=== PATIENT | female | born 1930 | race Caucasian/White ===

== ENCOUNTER → 2017-02-21 | Outpatient (CLI) | payer MEDICARE, OTHER ==
--- NOTE | 2017-02-21 11:03 | RADIOLOGY REPORT (SQ) ---
EXAM DESCRIPTION: VENOUS UNILATERAL LOWER COMPLETED DATE/TIME: 02/21/2017 10:46 am REASON FOR STUDY: RLE PAIN SWELLING R60.9 EDEMA, UNSPECIFIED COMPARISON: None. TECHNIQUE: Dynamic and static iniguez scale and color images acquired of the right leg venous system. S elected spectral images acquired with additional compression and augmentation maneuvers. The contrala teral common femoral vein and saphenofemoral junction were also imaged. Images stored on PACS. LIMITATIONS: None. FINDINGS: COMMON FEMORAL: Normal phasicity, compression and augmentation. No visualized echogenic ma terial on iniguez scale. No defects on color images. FEMORAL: Normal compression and augmentation. No visualized echogenic material on iniguez scale. No defe cts on color images. POPLITEAL: Normal compression, augmentation. No visualized echogenic material on iniguez scale. No defec ts on color images. CALF VESSELS: Normal compression, augmentation. No visualized echogenic material on iniguez scale. No de fects on color images. GSV and SSV: Normal compression, augmentation. No visualized echogenic material on iniguez scale. No def ects on color images. ANY DEEP VENOUS INSUFFICIENCY: Not evaluated. ANY EVIDENCE OF POPLITEAL CYST: No. OTHER: No other significant finding. CONTRALATERAL COMMON FEMORAL VEIN AND SAPHENOFEMORAL JUNCTION: Normal phasicity, compression and augmentation. No visualized echogenic material on iniguez scale. No de fects on color images. IMPRESSION: NO EVIDENCE OF DVT OR SVT IN THE RIGHT LEG. TECHNICAL DOCUMENTATION: JOB ID: [id number] [employer]- All Rights Reserved
== END ==
LOC: SP 09:45
PROVIDERS: ATTEND Internal Medicine Medical Oncology
DX: M79.604 Pain in right leg (principal); R60.9 Edema, unspecified
CPT/HCPCS: 93971

== ENCOUNTER 2018-04-25 14:42 | Inpatient (IN) | payer MEDICARE, OTHER ==
--- NOTE | 2018-04-25 15:55 | ER Document Report ---
ED Medical Screen (RME) - General Chief Complaint: Breathing Difficulty Stated Complaint: DIFFICULTY BREATHING Time Seen by Provider: 04/25/18 15:51 Mode of Arrival: Ambulatory Information source: Patient, Relative, [facility] Records Notes: 88-year-old female with hypertension presents with complaint of shortness of breath that started 3 days prior to arrival. Patient states that her shortness of breath is worse with activity, laying flat. She denies any associated chest pain, nausea, vomiting. Patient does have long-standing lower extremity edema. I have greeted and performed a rapid initial assessment of this patient. A comprehensive ED assessment and evaluation of the patient, analysis of test results and completion of medical decision making process we will be contacted by additional ED providers. General; no acute distress Cardiac; irregular rhythm, tachycardic Respiratory; no wheezing. No respiratory distress. No accessory muscle use TRAVEL OUTSIDE OF THE [place] IN LAST 30 DAYS: No - HPI Onset: Other Onset/Duration: Persistent Quality of pain: No pain Associated Symptoms: Shortness of breath Exacerbated by: Supine, Movement, Walking Relieved by: Remaining still Similar symptoms previously: No Recently seen / treated by doctor: No - Related Data Smoking: Non-smoker Frequency of alcohol use: None Drug Abuse: None Allergies/Adverse Reactions: No Known Allergies Allergy (Verified 04/25/18 14:49) Past Medical History - Past Medical History Cardiac Medical History: Reports: Hx Hypertension Pulmonary Medical History: Denies: Hx Tuberculosis Neurological Medical History: Denies: Hx Seizures Renal/ Medical History: Denies: Hx Peritoneal Dialysis Past Surgical History: Reports: Hx Appendectomy, Hx Hysterectomy. Denies: Hx Pacemaker - Immunizations Hx Diphtheria, Pertussis, Tetanus Vaccination: Yes Physical Exam - Vital signs Vitals: Temp Pulse Resp BP Pulse Ox 98.8 F 125 H 18 104/58 L 93 04/25/18 14:52 04/25/18 14:52 04/25/18 14:52 04/25/18 14:52 04/25/18 14:52 Course - Vital Signs Vital signs: Temp Pulse Resp BP Pulse Ox 98.8 F 125 H 18 104/58 L 93 04/25/18 14:52 04/25/18 14:52 04/25/18 14:52 04/25/18 14:52 04/25/18 14:52 Doctor's Discharge - Discharge Referrals: JAVIER BYERS MD [Primary Care Provider] - Follow up as needed
--- NOTE | 2018-04-25 16:52 | RADIOLOGY REPORT (SQ) ---
EXAM DESCRIPTION: CHEST 2 VIEWS COMPLETED DATE/TIME: 04/25/2018 4:43 pm REASON FOR STUDY: sob COMPARISON: 09/07/2010 EXAM PARAMETERS: NUMBER OF VIEWS: two views TECHNIQUE: Digital Frontal and Lateral radiographic views of the chest acquired. RADIATION DOSE: NA LIMITATIONS: none FINDINGS: LUNGS AND PLEURA: The lung sommer are hyperexpanded with small bilateral pleural effusions . No consolidation. MEDIASTINUM AND HILAR STRUCTURES: No masses or contour abnormalities. HEART AND VASCULAR STRUCTURES: Heart normal size. No evidence for failure. BONES: No acute findings. HARDWARE: None in the chest. OTHER: No other significant finding. IMPRESSION: Small pleural effusions and bibasilar atelectasis. COPD. TECHNICAL DOCUMENTATION: JOB ID: [id number] [employer]- All Rights Reserved Reading location - IP/workstation name: [email or web address]
[2018-04-25] MEDS ORDERED: IPRATROPIUM/ALBUTEROL 0.5-2.5 MG/3 ML AMPUL NEB ONE (17:01)
--- NOTE | 2018-04-25 17:02 | ER Document Report ---
ED General - General Mode of Arrival: Ambulatory Information source: Patient TRAVEL OUTSIDE OF THE [place] IN LAST 30 DAYS: No - HPI Onset: Other - 3 days Onset/Duration: Gradual Quality of pain: No pain Severity: Moderate Pain Level: Denies Associated symptoms: None Exacerbated by: Other - Bending over Recently seen / treated by doctor: No <KAILYN COATES - Last Filed: 04/25/18 18:36> <RICHA DANG - Last Filed: 04/25/18 20:47> - General Chief Complaint: Breathing Difficulty Stated Complaint: DIFFICULTY BREATHING Time Seen by Provider: 04/25/18 15:51 Notes: 88-year-old female presents emergency department with complaints of shortness of breath over the last 3 days. Patient is a former smoker. She denies a history of COPD. She is not on any home oxygen. Patient does not use any nebulizers or inhalers. Patient states that the shortness of breath is worse when she bends over. No alleviating factors. Patient denies any chest pain associated with this. Patient denies a history of congestive heart failure. She has chronic lower extremity edema. Patient denies any calf pain, recent travel, recent surgery, history of DVT or PE. (KAILYN COATES) - Related Data Allergies/Adverse Reactions: No Known Allergies Allergy (Verified 04/25/18 14:49) Past Medical History - General Information source: Patient, Relative, [facility] Records - Social History Smoking Status: Former Smoker Frequency of alcohol use: None Drug Abuse: None Family History: Reviewed & Not Pertinent Patient has suicidal ideation: No Patient has homicidal ideation: No - Past Medical History Cardiac Medical History: Reports: Hx Hypertension Pulmonary Medical History: Denies: Hx Tuberculosis Neurological Medical History: Denies: Hx Seizures Renal/ Medical History: Denies: Hx Peritoneal Dialysis Past Surgical History: Reports: Hx Appendectomy, Hx Hysterectomy. Denies: Hx Pacemaker - Immunizations Hx Diphtheria, Pertussis, Tetanus Vaccination: Yes Hx Pneumococcal Vaccination: 07/31/08 <KAILYN COATES - Last Filed: 04/25/18 18:36> Review of Systems - Review of Systems Constitutional: No symptoms reported EENT: No symptoms reported Cardiovascular: No symptoms reported Respiratory: Short of breath Gastrointestinal: No symptoms reported Genitourinary: No symptoms reported Female Genitourinary: No symptoms reported Musculoskeletal: No symptoms reported Skin: No symptoms reported Hematologic/Lymphatic: No symptoms reported Neurological/Psychological: No symptoms reported -: Yes All other systems reviewed and negative <KAILYN COATES A - Last Filed: 04/25/18 18:36> Physical Exam <KAILYN COATES A - Last Filed: 04/25/18 18:36> <RICHA DANG F - Last Filed: 04/25/18 20:47> - Vital signs Vitals: Temp Pulse Resp BP Pulse Ox 98.8 F 125 H 18 104/58 L 93 04/25/18 14:52 04/25/18 14:52 04/25/18 14:52 04/25/18 14:52 04/25/18 14:52 - Notes Notes: PHYSICAL EXAMINATION: GENERAL: Well-appearing, well-nourished and in no acute distress. HEAD: Atraumatic, normocephalic. EYES: Pupils equal round and reactive to light, extraocular movements intact, conjunctiva are normal. ENT: Nares patent, oropharynx clear without exudates. Moist mucous membranes. NECK: Normal range of motion, supple without lymphadenopathy LUNGS: Mild bilateral wheezing. HEART: Regular rate and rhythm without murmurs ABDOMEN: Soft, nontender, nondistended abdomen. No guarding, no rebound. No masses appreciated. Female : deferred Musculoskeletal: Normal range of motion, slight pitting edema to the bilateral lower extremities. No calf tenderness to palpation.. No cyanosis. NEUROLOGICAL: Cranial nerves grossly intact. Normal speech, normal gait. Normal sensory, motor exams PSYCH: Normal mood, normal affect. SKIN: Warm, Dry, normal turgor, no rashes or lesions noted. (KAILYN COATES ) Course - Laboratory Result Diagrams: 04/25/18 16:55 04/25/18 16:55 <KAILYN COATES - Last Filed: 04/25/18 18:36> - Laboratory Result Diagrams: 04/25/18 16:55 04/25/18 16:55 <RICHA DANG F - Last Filed: 04/25/18 20:47> - Re-evaluation Re-evalutation: 04/25/18 17:07 EKG: Ventricular rate 109, QRS duration 72, QTc 437, atrial fibrillation. 04/25/18 18:36 Labs and imaging obtained. Urinalysis shows signs of infection. Patient given a gram of Rocephin. Patient has new onset atrial fibrillation. Her rate is controlled in the range of 90-110. Patient is currently on metoprolol but says that this is strictly for her hypertension. I contacted Dr. Santiago, cardiology. He says that she should have a CT of the chest to rule out PE and then be admitted to the hospitalist. He will see the patient in consults for her new onset atrial fibrillation. Patient is agreeable with admission. ( KAILYN COATES) - Vital Signs Vital signs: Temp Pulse Resp BP Pulse Ox 98.8 F 125 H 21 H 108/73 94 04/25/18 14:52 04/25/18 14:52 04/25/18 18:01 04/25/18 18:01 04/25/18 18:00 - Laboratory Laboratory results interpreted by me: 04/25/18 04/25/18 04/25/18 16:29 16:55 16:55 RBC 3.36 L Hgb 11.6 L Hct 34.7 L MCV 103 H MCH 34.4 H RDW 20.7 H Plt Count 969 H Basophils % (Manual) 4 H PT Sodium 131.6 L Potassium 5.4 H Chloride 96 L AST 57 H ALT 67 H NT-Pro-B Natriuret Pep Total Protein 6.2 L Urine Nitrite POSITIVE H Ur Leukocyte Esterase LARGE H 04/25/18 04/25/18 16:55 16:55 RBC Hgb Hct MCV MCH RDW Plt Count Basophils % (Manual) PT 17.4 H Sodium Potassium Chloride AST ALT NT-Pro-B Natriuret Pep 5880 H Total Protein Urine Nitrite Ur Leukocyte Esterase Discharge <KAILYN COATES A - Last Filed: 04/25/18 18:36> - Discharge Admitting Provider: Hospitalist Unit Admitted: IMCU <RICHA DANG - Last Filed: 04/25/18 20:47> - Discharge Clinical Impression: Shortness of breath, Pleural effusion Atrial fibrillation Qualifiers: Atrial fibrillation type: unspecified Qualified Code(s): I48.91 - Unspecified atrial fibrillation Condition: Stable Disposition: ADMITTED INPATIENT Referrals: JAVIER BYERS MD [Primary Care Provider] - Follow up as needed
[2018-04-25 17:06] LABS: APPEARANCE,URINE CLOUDY; BILIRUBIN,URINE NEGATIVE (NEGATIVE); COLOR,URINE YELLOW; GLUCOSE, URINE NEGATIVE (NEGATIVE); KETONES,URINE NEGATIVE (NEGATIVE); LEUKOCYTE ESTERASE,URINE LARGE (NEGATIVE); NITRITE,URINE POSITIVE (NEGATIVE); PROTEIN,URINE NEGATIVE (NEGATIVE); URINE SPECIFIC GRAVITY 1.014; UROBILINOGEN,URINE NEGATIVE mg/dL (<2.0)
[2018-04-25 17:24] LABS: INTERNATIONAL RATION (INR) 1.35; PROTHROMBIN TIME 17.4 SEC (11.4-15.4)
[2018-04-25 17:32] LABS: HEMATOCRIT 34.7 % (36.0-47.0); HEMOGLOBIN 11.6 g/dL (12.0-15.5); MEAN CORPUSCULAR HEMOGLOBIN 34.4 pg (27.0-33.4); MEAN CORPUSCULAR HGB CONC 33.4 g/dL (32.0-36.0); MEAN CORPUSCULAR VOLUME 103 fl (80-97); PLATELET COUNT 969 10^3/uL (150-450); RED BLOOD COUNT 3.36 10^6/uL (3.72-5.28); RED CELL DISTRIBUTION WIDTH 20.7 % (11.5-14.0); WHITE BLOOD COUNT 4.9 10^3/uL (4.0-10.5)
[2018-04-25 17:43] LABS: ALANINE AMINOTRANSFERASE 67 U/L (9-52); ALBUMIN 3.8 g/dL (3.5-5.0); ALKALINE PHOSPHATASE 103 U/L (38-126); ANION GAP 11 (5-19); ASPARTATE AMINO TRANSFERASE 57 U/L (14-36); BILIRUBIN,TOTAL 0.8 mg/dL (0.2-1.3); BLOOD UREA NITROGEN 18 mg/dL (7-20); CALCIUM 9.1 mg/dL (8.4-10.2); CARBON DIOXIDE 25 mmol/L (22-30); CHLORIDE 96 mmol/L (98-107); GLUCOSE 104 mg/dL (75-110); POTASSIUM 5.4 mmol/L (3.6-5.0); SODIUM 131.6 mmol/L (137-145); TOTAL PROTEIN 6.2 g/dL (6.3-8.2)
[2018-04-25] MEDS ORDERED: METOPROLOL TARTRATE PF/INJ 5 MG/5 ML SDV IV ONE (17:45)
[2018-04-25 17:49] LABS: ABSOLUTE LYMPHOCYTES# (MANUAL) 0.8 10^3/uL (0.5-4.7); ABSOLUTE MONOCYTES # (MANUAL) 0.4 10^3/uL (0.1-1.4); ABSOLUTE NEUTROPHILS# (MANUAL) 3.4 10^3/uL (1.7-8.2); EOSINOPHILS % (MANUAL) 1 % (0-6); LYMPHOCYTES % (MANUAL) 16 % (13-45); MONOCYTES % (MANUAL) 9 % (3-13); NUCLEATED RED BLOOD CELLS 2 /100 WBC (0); SEGMENTED NEUTROPHILS % (MAN) 70 % (42-78); TOTAL CELLS COUNTED 100
[2018-04-25 17:52] LABS: ANISOCYTOSIS 3+; BASOPHILS % (MANUAL) 4 % (0-2); OVALOCYTES 1+; PLATELET COMMENT INCREASED; PLATELET GIANT PRESENT; PLATELET LARGE PRESENT; POIKILOCYTOSIS 1+; POLYCHROMASIA SLIGHT
[2018-04-25 17:54] LABS: NT PRO BNP 5880 pg/mL (<450)
[2018-04-25 17:58] LABS: TROPONIN I < 0.012 ng/mL
[2018-04-25] MEDS ORDERED: CEFTRIAXONE INJ 1000 MG VIAL IV ONE (18:36)
[2018-04-25] MEDS ORDERED: NORMAL SALINE 500 ML IV ONE (18:38)
--- NOTE | 2018-04-25 19:36 | EKG REPORT ---
SEVERITY:- ABNORMAL ECG - ATRIAL FIBRILLATION PAIRED VENTRICULAR PREMATURE COMPLEXES LOW VOLTAGE IN FRONTAL LEADS CONSIDER ANTERIOR INFARCT : Confirmed by: Odalys Santiago MD 25-Apr-2018 19:35:17
--- NOTE | 2018-04-25 20:10 | RADIOLOGY REPORT (SQ) ---
EXAM DESCRIPTION: CTA CHEST COMPLETED DATE/TIME: 04/25/2018 7:42 pm REASON FOR STUDY: shortness of breath COMPARISON: Chest x-ray 04/25/2018 TECHNIQUE: CT scan of the chest performed using helical scanning technique with dynamic intravenous contrast injection. Images reviewed with lung, soft tissue and bone windows. Reconstructed coronal and sagittal MPR images reviewed. Additional 3 dimensional post-processing performed to develop Maximal Intensity Projection images (AL P). All images stored on PACS. All CT scanners at this facility use dose modulation, iterative reconstruction, and/or weight based d osing when appropriate to reduce radiation dose to as low as reasonably achievable (ALARA). [facility]: Dose Right [facility]: CareDose [facility]: Dose Right [facility]: Teradose 4D [facility]: VisualDNA CONTRAST TYPE AND DOSE: contrast/concentration: Isovue 350.00 mg/ml; Total Contrast Delivered: 66.0 ml; Total Saline Delivered: 60.0 ml Contrast bolus optimized for the pulmonary arteries. Not diagnostic for the aorta. RENAL FUNCTION: BUN 18 creatinine 0.6 RADIATION DOSE: CT Rad equipment meets quality standard of care and radiation dose reduction techniq ues were employed. CTDIvol: 14.3 - 23.2 mGy. DLP: 506 mGy-cm. . LIMITATIONS: None. FINDINGS: LUNGS AND PLEURA: Moderate right pleural effusion. Small left pleural effusion. Mild ass ociated atelectasis in the lower lobes. AORTA AND GREAT VESSELS: No aneurysm. Contrast bolus not optimized for the aorta. HEART: Cardiomegaly. No pericardial effusion. Moderate to marked coronary artery calcifications. PULMONARY ARTERIES: No emboli visualized in the main pulmonary arteries or the segmental branches. HILAR AND MEDIASTINAL STRUCTURES: Small hiatal hernia. HARDWARE: None in the chest. UPPER ABDOMEN: The spleen is prominent. THYROID AND OTHER SOFT TISSUES: No masses. No adenopathy. BONES: No acute or significant finding. 3D MIPS: Confirm above findings. OTHER: No other significant finding. IMPRESSION: 1. No evidence of pulmonary emboli. 2. Cardiomegaly with pleural effusions as described. No pulmonary edema is suggested. 3. The spleen is prominent. COMMENT: Quality ID # [id number]: Final reports with documentation of one or more dose reduction techniques (e.g., Automated exposure control, adjustment of the mA and/or kV according to patient size, use of iterative reconstruction technique) TECHNICAL DOCUMENTATION: JOB ID: [id number] [employer]- All Rights Reserved Reading location - IP/workstation name: [email or web address]
[2018-04-25] MEDS ORDERED: MAGNESIUM HYDROXIDE SUSP 30 ML UDCUP PO PRN (20:48)
[2018-04-25] MEDS ORDERED: ACETAMINOPHEN 325 MG TABLET PO PRN (20:48)
[2018-04-25] MEDS ORDERED: FUROSEMIDE INJ/PF 20 MG/2 ML SDV IV ONE (20:50)
[2018-04-25] MEDS: DILTIAZEM HCL 60 MG TABLET PO SCH (21:46)
[2018-04-25 21:49] LABS: CREATINE KINASE MB 1.16 ng/mL (<4.55); TROPONIN I < 0.012 ng/mL
[2018-04-25] MEDS: HEPARIN SOD (PORCINE) 5,000 UNIT/ML 1 ML SYRINGE SUBCUT SCH (21:49)
[2018-04-26] MEDS ORDERED: LACTULOSE SYRUP 20 GM/30 ML UDCUP PO ONE (00:45)
[2018-04-26] MEDS: DILTIAZEM HCL 60 MG TABLET PO SCH (00:56)
[2018-04-26 03:35] LABS: HEMATOCRIT 30.9 % (36.0-47.0); HEMOGLOBIN 10.7 g/dL (12.0-15.5); MEAN CORPUSCULAR HEMOGLOBIN 35.6 pg (27.0-33.4); MEAN CORPUSCULAR HGB CONC 34.6 g/dL (32.0-36.0); MEAN CORPUSCULAR VOLUME 103 fl (80-97); PLATELET COUNT 720 10^3/uL (150-450); RED BLOOD COUNT 3.01 10^6/uL (3.72-5.28); RED CELL DISTRIBUTION WIDTH 20.2 % (11.5-14.0)
[2018-04-26 03:57] LABS: ABSOLUTE LYMPHOCYTES# (MANUAL) 0.8 10^3/uL (0.5-4.7); ABSOLUTE MONOCYTES # (MANUAL) 0.3 10^3/uL (0.1-1.4); ABSOLUTE NEUTROPHILS# (MANUAL) 2.7 10^3/uL (1.7-8.2); BAND NEUTROPHILS % (MANUAL) 1 % (3-5); BASOPHILS % (MANUAL) 4 % (0-2); EOSINOPHILS % (MANUAL) 3 % (0-6); LYMPHOCYTES % (MANUAL) 19 % (13-45); MONOCYTES % (MANUAL) 7 % (3-13); SEGMENTED NEUTROPHILS % (MAN) 66 % (42-78); TOTAL CELLS COUNTED 100
[2018-04-26 03:58] LABS: ANION GAP 8 (5-19); ANISOCYTOSIS 2+; BLOOD UREA NITROGEN 15 mg/dL (7-20); CALCIUM 8.7 mg/dL (8.4-10.2); CARBON DIOXIDE 26 mmol/L (22-30); CHLORIDE 99 mmol/L (98-107); GLUCOSE 108 mg/dL (75-110); OVALOCYTES 1+; PLATELET CLUMPS PRESENT; PLATELET COMMENT INCREASED; PLATELET GIANT PRESENT; PLATELET LARGE PRESENT; POIKILOCYTOSIS 2+; POLYCHROMASIA SLIGHT; SCHISTOCYTES 2+; SODIUM 132.7 mmol/L (137-145); TOXIC GRANULATION SLIGHT
[2018-04-26 04:07] LABS: POTASSIUM 4.4 mmol/L (3.6-5.0)
[2018-04-26 04:10] LABS: CREATINE KINASE MB 1.31 ng/mL (<4.55); TROPONIN I < 0.012 ng/mL
--- NOTE | 2018-04-26 04:43 | PDOC H&P ---
History of Present Illness Admission Date/PCP: 04/25/18 21:00 JAVIER BYERS MD Patient complains of: Shortness of breath History of Present Illness: DEEDEE VILLALOBOS is a 88 year old female with a past medical history of polycythemia vera, thrombocytosis and hypertension. Presents the emergency room with 48 hours of shortness of breath. Denying chest, back or abdominal pain, nausea or vomiting. In the emergency room she is found to be in A. fib with RVR with bilateral pleural effusions, anemia and thrombocytosis. Patient admits medication indiscretion with metoprolol but is unaware of atrial fibrillation history. She is referred to the hospitalist for admission. Past Medical History Cardiac Medical History: Reports: Hypertension Pulmonary Medical History: Denies: Tuberculosis Neurological Medical History: Denies: Seizures Malignancy Medical History: Reports: Skin Cancer, Other - Endometrial cancer Psychiatric Medical History: Denies: Depression Hematology: Reports: Anemia, Other - Polycythemia vera Infectious Medical History: Reports: None Past Surgical History Past Surgical History: Reports: Appendectomy, Hysterectomy Denies: Pacemaker Social History Information Source: Patient, Emergency Med Personnel, [facility] Records Smoking Status: Former Smoker Hx Recreational Drug Use: No Drugs: None Hx Prescription Drug Abuse: No - Advance Directive Resuscitation Status: Full Code Family History Family History: Hypertension Parental Family History Reviewed: Yes Children Family History Reviewed: Yes Sibling(s) Family History Reviewed.: Yes Medication/Allergy Home Medications: Hydrochlorothiazide [Hydrodiuril 25 mg Tablet] 25 mg PO DAILY 04/25/18 Hydroxyurea [Droxia] 400 mg PO ASDIR 04/25/18 Metoprolol Tartrate 25 mg PO BID 04/25/18 Potassium Chloride 10 meq PO DAILY 04/25/18 Allergies/Adverse Reactions: No Known Allergies Allergy (Verified 04/25/18 21:36) Review of Systems Constitutional: ABSENT: chills, fever(s), headache(s), weight gain, weight loss Eyes: ABSENT: visual disturbances Ears: ABSENT: hearing changes Cardiovascular: ABSENT: chest pain, dyspnea on exertion, edema, orthropnea, palpitations Respiratory: ABSENT: cough, hemoptysis Gastrointestinal: ABSENT: abdominal pain, constipation, diarrhea, hematemesis, hematochezia, nausea, vomiting Genitourinary: ABSENT: dysuria, hematuria Musculoskeletal: ABSENT: joint swelling Integumentary: ABSENT: rash, wounds Neurological: ABSENT: abnormal gait, abnormal speech, confusion, dizziness, focal weakness, syncope Psychiatric: ABSENT: anxiety, depression, homidical ideation, suicidal ideation Endocrine: ABSENT: cold intolerance, heat intolerance, polydipsia, polyuria Hematologic/Lymphatic: ABSENT: easy bleeding, easy bruising Physical Exam Vital Signs: Temp Pulse Resp BP Pulse Ox 97.8 F 103 H 16 107/93 H 95 04/26/18 01:06 04/26/18 01:06 04/26/18 01:06 04/26/18 01:06 04/26/18 01:06 Intake & Output 04/24/18 04/25/18 04/26/18 11:59 11:59 11:59 Intake Total 500 Balance 500 Weight 73.8 kg General appearance: PRESENT: cooperative, hard of hearing, mild distress, thin. ABSENT: disheveled Head exam: PRESENT: atraumatic, normocephalic Eye exam: PRESENT: conjunctiva pink, EOMI, PERRLA. ABSENT: scleral icterus Ear exam: PRESENT: normal external ear exam Mouth exam: PRESENT: moist, tongue midline Neck exam: ABSENT: carotid bruit, JVD, lymphadenopathy, thyromegaly Respiratory exam: PRESENT: clear to auscultation nessa, crackles, decreased breath sounds, tachypnea. ABSENT: rales, rhonchi, wheezes Cardiovascular exam: PRESENT: irregular rhythm, +S1, +S2, tachycardia. ABSENT: gallop Pulses: PRESENT: normal dorsalis pedis pul Vascular exam: PRESENT: normal capillary refill GI/Abdominal exam: PRESENT: normal bowel sounds, soft. ABSENT: distended, guarding, mass, organolmegaly, rebound, tenderness Rectal exam: PRESENT: deferred Extremities exam: PRESENT: full ROM, +1 edema - Chronic. ABSENT: calf tenderness, clubbing, pedal edema Neurological exam: PRESENT: alert, awake, oriented to person, oriented to place , oriented to time, oriented to situation, CN II-XII grossly intact. ABSENT: motor sensory deficit Psychiatric exam: PRESENT: appropriate affect, normal mood. ABSENT: homicidal ideation, suicidal ideation Skin exam: PRESENT: dry, intact, warm. ABSENT: cyanosis, rash Results Laboratory Results: 04/26/18 03:28 04/26/18 03:28 04/26/18 04/26/18 03:28 03:28 WBC 4.0 RBC 3.01 L Hgb 10.7 L Hct 30.9 L MCV 103 H MCH 35.6 H MCHC 34.6 RDW 20.2 H Plt Count 720 H Seg Neutrophils % Not Reportable Lymphocytes % Not Reportable Monocytes % Not Reportable Eosinophils % Not Reportable Basophils % Not Reportable Absolute Neutrophils Not Reportable Absolute Lymphocytes Not Reportable Absolute Monocytes Not Reportable Absolute Eosinophils Not Reportable Absolute Basophils Not Reportable Sodium 132.7 L Potassium 4.4 D Chloride 99 Carbon Dioxide 26 Anion Gap 8 BUN 15 Creatinine 0.47 L Est GFR ( Amer) > 60 Est GFR (Non-Af Amer) > 60 Glucose 108 Calcium 8.7 04/25/18 04/25/18 04/26/18 21:05 21:05 03:28 Creatine Kinase < 20 L 33 CK-MB (CK-2) 1.16 Troponin I < 0.012 04/26/18 03:28 Creatine Kinase CK-MB (CK-2) 1.31 Troponin I < 0.012 Impressions: Chest X-Ray 04/25/18 15:52 IMPRESSION: Small pleural effusions and bibasilar atelectasis. COPD. Chest/Abdomen CTA 04/25/18 18:35 IMPRESSION: 1. No evidence of pulmonary emboli. 2. Cardiomegaly with pleural effusions as described. No pulmonary edema is suggested. 3. The spleen is prominent. Assessment & Plan - Diagnosis (1) Anemia Is this a current diagnosis for this admission?: Yes Plan: Anemia workup initiated, follow-up labs and hematology consult (2) Thrombocytosis Is this a current diagnosis for this admission?: Yes Plan: Baseline appears to be in the mid 700 thousands currently high 900s, continue hydroxyurea, patient's oncologist consulted. (3) Atrial fibrillation Qualifiers: Atrial fibrillation type: unspecified Qualified Code(s): I48.91 - Unspecified atrial fibrillation Is this a current diagnosis for this admission?: Yes Plan: Patient admits inconsistent with metoprolol. Trial p.o. Cardizem, follow-up orthostatic vitals prior to anticoagulation, echocardiogram, cardiac enzymes and cardiology consult. (4) Pleural effusion Is this a current diagnosis for this admission?: Yes Plan: Likely secondary to A. fib with RVR with high-output high-output, reevaluate after low-dose Lasix and rate reduction. (5) Shortness of breath Is this a current diagnosis for this admission?: Yes Plan: Multifactorial secondary to A. fib with RVR resulting in pleural effusions, symptomatic management and diuresis
[2018-04-26 05:29] LABS: ABSOLUTE RETICS # 0.051 10^6/uL (0.028-0.122); RETICULOCYTE COUNT (AUTO) 1.65 % (0.66-2.85)
[2018-04-26 05:33] LABS: IRON(TIBC) 96.5 ug/dL (37-170)
[2018-04-26] MEDS: HEPARIN SOD (PORCINE) 5,000 UNIT/ML 1 ML SYRINGE SUBCUT SCH ×2 (05:48→14:15)
[2018-04-26] MEDS ORDERED: DILTIAZEM HCL 120 MG CAP.SR.24H PO ONE (06:00)
[2018-04-26 06:41] LABS: FOLATE > 20.00 ng/mL (>2.76)
--- NOTE | 2018-04-26 08:14 | PDOC PROGRESS REPORT ---
Subjective Progress Note for:: 04/26/18 Subjective:: The patient states to feel better. She denies any further palpitations. She denies any further shortness of breath. Reason For Visit: NEW AFIB, HEART FAILURE, UTI Physical Exam Vital Signs: Temp Pulse Resp BP Pulse Ox 97.8 F 110 H 16 133/85 H 96 04/26/18 01:06 04/26/18 07:00 04/26/18 01:06 04/26/18 05:49 04/26/18 05:49 Intake & Output 04/25/18 04/26/18 04/27/18 06:59 06:59 06:59 Intake Total 500 Output Total 800 Balance -300 Weight 73.8 kg General appearance: PRESENT: mild distress Head exam: PRESENT: atraumatic Eye exam: PRESENT: conjunctival injection Neck exam: ABSENT: carotid bruit, JVD Respiratory exam: PRESENT: crackles Cardiovascular exam: PRESENT: irregular rhythm, +S1, +S2 GI/Abdominal exam: PRESENT: normal bowel sounds, soft Extremities exam: PRESENT: tenderness Musculoskeletal exam: PRESENT: tenderness Neurological exam: PRESENT: alert, awake Results Laboratory Results: 04/26/18 03:28 04/26/18 03:28 04/26/18 04/26/18 04/26/18 03:28 03:28 03:28 WBC 4.0 RBC 3.01 L Hgb 10.7 L Hct 30.9 L MCV 103 H MCH 35.6 H MCHC 34.6 RDW 20.2 H Plt Count 720 H Seg Neutrophils % Not Reportable Lymphocytes % Not Reportable Monocytes % Not Reportable Eosinophils % Not Reportable Basophils % Not Reportable Absolute Neutrophils Not Reportable Absolute Lymphocytes Not Reportable Absolute Monocytes Not Reportable Absolute Eosinophils Not Reportable Absolute Basophils Not Reportable Retic Count (auto) 1.65 Absolute Retic 0.051 Sodium 132.7 L Potassium 4.4 D Chloride 99 Carbon Dioxide 26 Anion Gap 8 BUN 15 Creatinine 0.47 L Est GFR ( Amer) > 60 Est GFR (Non-Af Amer) > 60 Glucose 108 Calcium 8.7 Iron TIBC % Saturation Ferritin Vitamin B12 Folate 04/26/18 03:28 WBC RBC Hgb Hct MCV MCH MCHC RDW Plt Count Seg Neutrophils % Lymphocytes % Monocytes % Eosinophils % Basophils % Absolute Neutrophils Absolute Lymphocytes Absolute Monocytes Absolute Eosinophils Absolute Basophils Retic Count (auto) Absolute Retic Sodium Potassium Chloride Carbon Dioxide Anion Gap BUN Creatinine Est GFR ( Amer) Est GFR (Non-Af Amer) Glucose Calcium Iron 96.5 TIBC 275 % Saturation 35 Ferritin 207.00 Vitamin B12 837.0 Folate > 20.00 04/25/18 04/25/18 04/26/18 21:05 21:05 03:28 Creatine Kinase < 20 L 33 CK-MB (CK-2) 1.16 Troponin I < 0.012 04/26/18 03:28 Creatine Kinase CK-MB (CK-2) 1.31 Troponin I < 0.012 Impressions: Chest X-Ray 04/25/18 15:52 IMPRESSION: Small pleural effusions and bibasilar atelectasis. COPD. Chest/Abdomen CTA 04/25/18 18:35 IMPRESSION: 1. No evidence of pulmonary emboli. 2. Cardiomegaly with pleural effusions as described. No pulmonary edema is suggested. 3. The spleen is prominent. Assessment & Plan - Diagnosis (1) Polycythemia vera Is this a current diagnosis for this admission?: Yes Plan: We will continue current treatment (2) Anemia Is this a current diagnosis for this admission?: Yes Plan: We will recheck the blood counts (3) Atrial fibrillation Qualifiers: Atrial fibrillation type: unspecified Qualified Code(s): I48.91 - Unspecified atrial fibrillation Is this a current diagnosis for this admission?: Yes Plan: We will add metoprolol and continue Cardizem. Awaiting echocardiogram and cardiology follow-up (4) Urinary tract infection Is this a current diagnosis for this admission?: Yes Plan: We will stop ceftriaxone and start Cipro
[2018-04-26] MEDS: METOPROLOL SUCCINATE 50 MG TAB.SR.24H PO SCH ×2 (09:35→21:29)
[2018-04-26] MEDS: ASPIRIN 81 MG TABLET, ENT COATED PO SCH (09:35)
[2018-04-26] MEDS: FUROSEMIDE 40 MG TABLET PO SCH (09:35)
[2018-04-26] MEDS: CIPROFLOXACIN HCL 500 MG TABLET PO SCH ×2 (09:36→21:29)
[2018-04-26] MEDS: DOCUSATE SODIUM 100 MG CAPSULE PO SCH (09:36)
[2018-04-26] MEDS ORDERED: CEFTRIAXONE 1 GM/D5W RTU 1 GM/50 ML RTUPB IV SCH (10:00)
[2018-04-26] MEDS ORDERED: HYDROXYUREA 500 MG CAPSULE PO SCH ×2 (10:00→13:00)
[2018-04-26] MEDS ORDERED: DILTIAZEM HCL 120 MG CAP.SR.24H PO SCH ×2 (10:00)
[2018-04-26 10:24] LABS: CREATINE KINASE MB 1.42 ng/mL (<4.55)
[2018-04-26 10:28] LABS: TROPONIN I < 0.012 ng/mL
[2018-04-26] MEDS ORDERED: TOBRAMYCIN SULFATE/DEXAMETH OPH OINTMENT 3.5 GM OU SCH (11:15)
[2018-04-26 13:26] LABS: PATH REVIEW PATHOLOGIST REVIEWED
--- NOTE | 2018-04-26 14:38 | EKG REPORT ---
SEVERITY:- ABNORMAL ECG - ATRIAL FIBRILLATION, V-RATE 89-130 VENTRICULAR PREMATURE COMPLEXES LOW VOLTAGE IN FRONTAL LEADS BORDERLINE T ABNORMALITIES, ANTERIOR LEADS : Confirmed by: Odalys Santiago MD 26-Apr-2018 14:38:10
[2018-04-26] MEDS: APIXABAN 2.5 MG TABLET PO SCH (17:23)
--- NOTE | 2018-04-26 17:26 | XCELERA REPORT ---
[address] [address] Transthoracic Echocardiogram Report Name: DEEDEE VILLALOBOS Age: 88 yrs Gender: Female : 1930 Patient Status: Inpatient Patient Location: [address] [place], [place] [address] Study Date: 04/26/2018 10:06 AM Height: 67 in Weight: 152 lb BSA: 1.8 m2 Procedure: A two-dimensional transthoracic echocardiogram with color flow and Doppler was performed. Study Quality: Fair. Reason For Study: new afib History: ATRIAL FIBRILLATION. Ordering Physician: KAIT WYNN Performed By: Keya Packer Interpretation Summary The left ventricle is normal in size. There is normal left ventricular wall thickness. LV EF is > than 60% Left ventricular systolic function is normal. LV diastolic function could not be adequately assessed due to atrial fibrilation. The left ventricular wall motion is normal. There is no thrombus. The right atrium is mild to moderately dilated. The left atrium is moderately dilated. There is no evidence of mitral valve prolapse. There is no mitral valve stenosis. There is a moderate amount of mitral regurgitation There is no aortic valve stenosis There is no LVOT obstruction. There is aortic sclerosis without aortic stenosis. There is a mild amount of aortic regurgitation There is no tricuspid stenosis. There is a moderate to severe amount of tricuspid regurgitation RVSP is 50 mm of Hg with RA mean of 15. There is moderate pulmonary hypertension by echo There is a mild amount of pulmonic regurgitation There is no pulmonic valvular stenosis. There is no pericardial effusion. MMode/2D Measurements & Calculations RVDd: 2.7 cm LVIDd: 4.3 cm FS: 30.7 % Ao root diam: 3.7 cm IVSd: 0.96 cm LVIDs: 3.0 cm EDV(Teich): 83.3 ml Ao root area: 10.9 cm2 LVPWd: 1.00 cm ESV(Teich): 34.5 ml EF(Teich): 58.6 % Doppler Measurements & Calculations MV E max vipin: MV dec slope: Ao V2 max: AI max vipin: 92.8 cm/sec 716.8 cm/sec2 106.0 cm/sec 411.3 cm/sec MV A max vipin: MV dec time: Ao max P.5 mmHgAI max P.7 mmHg 41.9 cm/sec 0.13 sec AI dec slope: MV E/A: 2.2 317.9 cm/sec2 AI P1/2t: 378.9 msec LV V1 max PG: PA V2 max: PI end-d vipin: TR max ivpin: 3.4 mmHg 78.3 cm/sec 161.6 cm/sec 285.0 cm/sec LV V1 max: PA max P.5 mmHg TR max P.6 mmHg 92.0 cm/sec Left Ventricle The left ventricle is normal in size. There is normal left ventricular wall thickness. LV EF is > than 60%. Left ventricular systolic function is normal. LV diastolic function could not be adequately assessed due to atrial fibrilation. The left ventricular wall motion is normal. There is no thrombus. There is no ventricular septal defect visualized. Right Ventricle The right ventricle is normal in size and function. Atria The right atrium is mild to moderately dilated. The left atrium is moderately dilated. The interatrial septum is intact with no evidence for an atrial septal defect. Mitral Valve There is mild mitral annular calcification. There is no evidence of mitral valve prolapse. There is no vegetation seen on the mitral valve. There is no mitral valve stenosis. There is a moderate amount of mitral regurgitation. Aortic Valve There is no aortic valvular vegetation. There is no aortic valve stenosis. There is no LVOT obstruction. There is aortic sclerosis without aortic stenosis. There is a mild amount of aortic regurgitation. Tricuspid Valve There is no tricuspid stenosis. There is a moderate to severe amount of tricuspid regurgitation. RVSP is 50 mm of Hg with RA mean of 15. There is moderate pulmonary hypertension by echo. Pulmonic Valve There is no pulmonic valvular stenosis. There is a mild amount of pulmonic regurgitation. Great Vessels The aortic root is normal size. Effusions There is no pericardial effusion. : KAIT WYNN > Odalys Santiago
[2018-04-26] MEDS ORDERED: CEFTRIAXONE SODIUM 1,000 MG in NORMAL SALINE 50 ML IV SCH (18:00)
[2018-04-27 05:53] LABS: HEMATOCRIT 29.9 % (36.0-47.0); HEMOGLOBIN 10.1 g/dL (12.0-15.5); MEAN CORPUSCULAR HGB CONC 33.9 g/dL (32.0-36.0); MEAN CORPUSCULAR VOLUME 103 fl (80-97); PLATELET COUNT 623 10^3/uL (150-450); RED CELL DISTRIBUTION WIDTH 20.6 % (11.5-14.0); WHITE BLOOD COUNT 3.9 10^3/uL (4.0-10.5)
[2018-04-27 06:18] LABS: ABSOLUTE LYMPHOCYTES# (MANUAL) 0.7 10^3/uL (0.5-4.7); ABSOLUTE MONOCYTES # (MANUAL) 0.2 10^3/uL (0.1-1.4); ABSOLUTE NEUTROPHILS# (MANUAL) 2.6 10^3/uL (1.7-8.2); BASOPHILS % (MANUAL) 7 % (0-2); EOSINOPHILS % (MANUAL) 2 % (0-6); LYMPHOCYTES % (MANUAL) 17 % (13-45); MONOCYTES % (MANUAL) 6 % (3-13); SEGMENTED NEUTROPHILS % (MAN) 67 % (42-78); TOTAL CELLS COUNTED 100
[2018-04-27 06:19] LABS: ALANINE AMINOTRANSFERASE 41 U/L (9-52); ALBUMIN 2.9 g/dL (3.5-5.0); ALKALINE PHOSPHATASE 66 U/L (38-126); ANION GAP 6 (5-19); ASPARTATE AMINO TRANSFERASE 30 U/L (14-36); BILIRUBIN,DIRECT 0.4 mg/dL (0.0-0.4); BILIRUBIN,TOTAL 1.1 mg/dL (0.2-1.3); BLOOD UREA NITROGEN 18 mg/dL (7-20); CALCIUM 8.2 mg/dL (8.4-10.2); CARBON DIOXIDE 27 mmol/L (22-30); CHLORIDE 99 mmol/L (98-107); GLUCOSE 99 mg/dL (75-110); POTASSIUM 4.4 mmol/L (3.6-5.0); SODIUM 131.7 mmol/L (137-145); TOTAL PROTEIN 5.1 g/dL (6.3-8.2)
[2018-04-27 06:20] LABS: ANISOCYTOSIS 2+; OVALOCYTES 1+; POIKILOCYTOSIS 1+; TEAR DROP CELLS SLIGHT; TOXIC VACUOLATION PRESENT
[2018-04-27 06:21] LABS: PLATELET COMMENT INCREASED; PLATELET GIANT PRESENT
--- NOTE | 2018-04-27 08:39 | PDOC PROGRESS REPORT ---
Subjective Progress Note for:: 04/27/18 Subjective:: The patient states to feel better. She denies any shortness of breath or palpitations. Her iron O's are negative. Discussed with the patient about the blood thinners/anticoagulation and possibly the need to keep the rate control and leave her in A. fib. Reason For Visit: NEW AFIB, HEART FAILURE, UTI Physical Exam Vital Signs: Temp Pulse Resp BP Pulse Ox 97.8 F 85 20 102/65 94 04/27/18 07:50 04/27/18 07:50 04/27/18 07:50 04/27/18 07:50 04/27/18 07:50 Intake & Output 04/26/18 04/27/18 04/28/18 06:59 06:59 06:59 Intake Total 500 954 Output Total 800 2300 Balance -300 -1346 Weight 73.8 kg 73.7 kg General appearance: PRESENT: mild distress Head exam: PRESENT: atraumatic Eye exam: PRESENT: conjunctiva pink Mouth exam: PRESENT: moist Respiratory exam: PRESENT: crackles Cardiovascular exam: PRESENT: irregular rhythm, +S1, +S2 Extremities exam: PRESENT: tenderness Musculoskeletal exam: PRESENT: ambulatory, tenderness Neurological exam: PRESENT: alert, awake Results Laboratory Results: 04/27/18 05:02 04/27/18 05:02 04/27/18 04/27/18 04/27/18 05:02 05:02 05:02 WBC 3.9 L RBC 2.90 L Hgb 10.1 L Hct 29.9 L MCV 103 H MCH 35.0 H MCHC 33.9 RDW 20.6 H Plt Count 623 H Seg Neutrophils % Not Reportable Lymphocytes % Not Reportable Monocytes % Not Reportable Eosinophils % Not Reportable Basophils % Not Reportable Absolute Neutrophils Not Reportable Absolute Lymphocytes Not Reportable Absolute Monocytes Not Reportable Absolute Eosinophils Not Reportable Absolute Basophils Not Reportable Sodium 131.7 L Potassium 4.4 Chloride 99 Carbon Dioxide 27 Anion Gap 6 BUN 18 Creatinine 0.62 Est GFR ( Amer) > 60 Est GFR (Non-Af Amer) > 60 Glucose 99 Calcium 8.2 L Magnesium 1.8 Total Bilirubin 1.1 AST 30 ALT 41 Alkaline Phosphatase 66 Total Protein 5.1 L Albumin 2.9 L TSH 5.16 H 04/25/18 04/25/18 04/26/18 21:05 21:05 03:28 Creatine Kinase < 20 L 33 CK-MB (CK-2) 1.16 Troponin I < 0.012 04/26/18 04/26/18 04/26/18 03:28 09:40 09:40 Creatine Kinase < 20 L CK-MB (CK-2) 1.31 1.42 Troponin I < 0.012 < 0.012 Impressions: Chest X-Ray 04/25/18 15:52 IMPRESSION: Small pleural effusions and bibasilar atelectasis. COPD. Chest/Abdomen CTA 04/25/18 18:35 IMPRESSION: 1. No evidence of pulmonary emboli. 2. Cardiomegaly with pleural effusions as described. No pulmonary edema is suggested. 3. The spleen is prominent. Assessment & Plan - Diagnosis (1) Polycythemia vera Is this a current diagnosis for this admission?: Yes Plan: We will continue current treatment (2) Anemia Is this a current diagnosis for this admission?: Yes Plan: We will recheck the blood counts (3) Atrial fibrillation Qualifiers: Atrial fibrillation type: unspecified Qualified Code(s): I48.91 - Unspecified atrial fibrillation Is this a current diagnosis for this admission?: Yes Plan: We will continue with anticoagulation and discuss with cardiology about rate control with metoprolol. (4) Urinary tract infection Is this a current diagnosis for this admission?: Yes Plan: We will stop ceftriaxone and start Cipro
[2018-04-27] MEDS: FUROSEMIDE 40 MG TABLET PO SCH (09:21)
[2018-04-27] MEDS: METOPROLOL SUCCINATE 50 MG TAB.SR.24H PO SCH (09:21)
[2018-04-27] MEDS: APIXABAN 2.5 MG TABLET PO SCH (09:21)
[2018-04-27] MEDS: CIPROFLOXACIN HCL 500 MG TABLET PO SCH (09:21)
[2018-04-27] MEDS: DOCUSATE SODIUM 100 MG CAPSULE PO SCH (09:21)
[2018-04-27] MEDS: ASPIRIN 81 MG TABLET, ENT COATED PO SCH (09:22)
[2018-04-27] MEDS ORDERED: HYDROXYUREA 500 MG CAPSULE PO SCH (10:00)
--- NOTE | 2018-04-27 11:52 | PDOC DISCHARGE SUMMARY ---
General - Admit/Disc Date/PCP Admission Date/Primary Care Provider: 04/25/18 21:00 JAVIER BYERS MD Discharge Date: 04/27/18 - Discharge Diagnosis (1) Polycythemia vera Is this a current diagnosis for this admission?: Yes (2) Anemia Is this a current diagnosis for this admission?: Yes (3) Atrial fibrillation Is this a current diagnosis for this admission?: Yes Summary: We will add digoxin 0.125 (4) Urinary tract infection Is this a current diagnosis for this admission?: Yes - Additional Information Resuscitation Status: Full Code Discharge Activity: Activity As Tolerated Prescriptions: Ciprofloxacin HCl [Cipro 500 mg Tablet] 500 mg PO Q12 #10 tablet Home Medications: Hydrochlorothiazide [Hydrodiuril 25 mg Tablet] 25 mg PO DAILY 04/25/18 Potassium Chloride 10 meq PO DAILY 04/25/18 Hydroxyurea [Hydrea 500 mg Capsule] 1,500 mg PO SUTUTHSA@1400 04/26/18 Hydroxyurea [Hydrea 500 mg Capsule] 2,000 mg PO MOWEFR@1400 04/26/18 Multivit-Min/Iron/Folic/Lutein [Centrum Silver Women Tablet] 1 each PO DAILY Tobramycin/Dexamethasone [Tobradex Eye Ointment] 1 applic OU DAILYP PRN Ciprofloxacin HCl [Cipro 500 mg Tablet] 500 mg PO Q12 #10 tablet 04/27/18 History of Present Illness History of Present Illness: DEEDEE VILLALOBOS is a 88 year old female Physical Exam Vital Signs: Temp Pulse Resp BP Pulse Ox 97.8 F 85 20 102/65 94 04/27/18 07:50 04/27/18 07:50 04/27/18 07:50 04/27/18 07:50 04/27/18 07:50 Intake & Output 04/26/18 04/27/18 04/28/18 06:59 06:59 06:59 Intake Total 500 954 Output Total 800 2300 Balance -300 -1346 Weight 73.8 kg 73.7 kg Results Laboratory Results: 04/27/18 05:02 04/27/18 05:02 04/27/18 04/27/18 04/27/18 05:02 05:02 05:02 WBC 3.9 L RBC 2.90 L Hgb 10.1 L Hct 29.9 L MCV 103 H MCH 35.0 H MCHC 33.9 RDW 20.6 H Plt Count 623 H Seg Neutrophils % Not Reportable Lymphocytes % Not Reportable Monocytes % Not Reportable Eosinophils % Not Reportable Basophils % Not Reportable Absolute Neutrophils Not Reportable Absolute Lymphocytes Not Reportable Absolute Monocytes Not Reportable Absolute Eosinophils Not Reportable Absolute Basophils Not Reportable Sodium 131.7 L Potassium 4.4 Chloride 99 Carbon Dioxide 27 Anion Gap 6 BUN 18 Creatinine 0.62 Est GFR ( Amer) > 60 Est GFR (Non-Af Amer) > 60 Glucose 99 Calcium 8.2 L Magnesium 1.8 Total Bilirubin 1.1 AST 30 ALT 41 Alkaline Phosphatase 66 Total Protein 5.1 L Albumin 2.9 L TSH 5.16 H 04/25/18 04/25/18 04/26/18 21:05 21:05 03:28 Creatine Kinase < 20 L 33 CK-MB (CK-2) 1.16 Troponin I < 0.012 04/26/18 04/26/18 04/26/18 03:28 09:40 09:40 Creatine Kinase < 20 L CK-MB (CK-2) 1.31 1.42 Troponin I < 0.012 < 0.012 Impressions: Chest X-Ray 04/25/18 15:52 IMPRESSION: Small pleural effusions and bibasilar atelectasis. COPD. Chest/Abdomen CTA 04/25/18 18:35 IMPRESSION: 1. No evidence of pulmonary emboli. 2. Cardiomegaly with pleural effusions as described. No pulmonary edema is suggested. 3. The spleen is prominent. Qualifiers - * PATIENT BEING DISCHARGED WITH ANY OF THE FOLLOWING DIAGNOSIS: No
[2018-04-27 12:07] VITALS: BP 107/93
[2018-04-27] MEDS ORDERED: DIGOXIN 0.125 MG TABLET PO ONE (13:00)
--- NOTE | 2018-04-27 20:55 | EKG REPORT ---
SEVERITY:- ABNORMAL ECG - ATRIAL FIBRILLATION VENTRICULAR PREMATURE COMPLEX BORDERLINE LEFT AXIS DEVIATION LOW VOLTAGE IN FRONTAL LEADS : Confirmed by: Odalys Santiago MD 27-Apr-2018 20:54:55
--- NOTE | 2018-04-27 21:48 | Progress Note ---
Provider Note Provider Note: CARDIOLOGY PROGRESS NOTE by Dr. Odalys Santiago for 04/27/2018.
[2018-04-28] MEDS ORDERED: DIGOXIN 0.125 MG TABLET PO SCH (10:00)
== END 2018-04-27 12:55 | disposition home or self-care (01) | DRG 309 ==
LOC: ER 14:42 → EH 21:00 → 3N 04-26 00:50
PROVIDERS: ADMIT Internal Medicine; ATTEND Internal Medicine
DX: I48.91 Unspecified atrial fibrillation (principal); J90 Pleural effusion, not elsewhere classified; N39.0 Urinary tract infection, site not specified; D45 Polycythemia vera; I10 Essential (primary) hypertension; D47.3 Essential (hemorrhagic) thrombocythemia; D64.9 Anemia, unspecified; Z85.828 Personal history of other malignant neoplasm of skin; Z85.42 Personal history of malignant neoplasm of other parts of uterus; Z90.710 Acquired absence of both cervix and uterus; Z90.49 Acquired absence of other specified parts of digestive tract; Z87.891 Personal history of nicotine dependence; Z82.49 Family history of ischemic heart disease and other diseases of the circulatory system
CPT/HCPCS: 36415; 71046; 71275; 80048; 80053; 81001; 82550; 82553; 82607; 82728; 82746; 83540; 83550; 83735; 83880; 84443; 84484; 85025; 85045; 85610; 87040; 93005; 93010; 93306; 96365; 99285; J0696; J1644; J1940; J7620

== ENCOUNTER 2018-09-20 09:15 | Inpatient (IN) | payer MEDICARE, OTHER ==
--- NOTE | 2018-09-20 09:53 | RADIOLOGY REPORT (SQ) ---
EXAM DESCRIPTION: CHEST SINGLE VIEW COMPLETED DATE/TIME: 09/20/2018 9:42 am REASON FOR STUDY: sob COMPARISON: CT angio chest 04/25/2018 Chest films 04/25/2018, 11/27/2012 EXAM PARAMETERS: NUMBER OF VIEWS: One view. TECHNIQUE: Single frontal radiographic view of the chest acquired. RADIATION DOSE: NA LIMITATIONS: None. FINDINGS: LUNGS AND PLEURA: Small bilateral pleural effusions are present. Bibasilar airspace disease atelectasis versus pneumonia. No pneumothorax MEDIASTINUM AND HILAR STRUCTURES: No masses. Contour normal. HEART AND VASCULAR STRUCTURES: Stable marked cardiomegaly. BONES: No acute findings. HARDWARE: None in the chest. OTHER: No other significant finding. IMPRESSION: Small bilateral pleural effusions with bibasilar airspace disease Marked cardiomegaly TECHNICAL DOCUMENTATION: JOB ID: [id number]- All Rights Reserved Reading location - IP/workstation name: [email or web address]
[2018-09-20 10:03] LABS: HEMATOCRIT 28.8 % (36.0-47.0); HEMOGLOBIN 9.6 g/dL (12.0-15.5); MEAN CORPUSCULAR HEMOGLOBIN 41.8 pg (27.0-33.4); MEAN CORPUSCULAR HGB CONC 33.4 g/dL (32.0-36.0); PLATELET COUNT 726 10^3/uL (150-450); RED CELL DISTRIBUTION WIDTH 21.4 % (11.5-14.0)
[2018-09-20 10:21] LABS: VENOUS BLOOD BASE EXCESS 0.8 mmol/L; VENOUS BLOOD HCO3 27.3 mmol/L (20-32); VENOUS BLOOD PCO2 50.3 mmHg (35-63); VENOUS BLOOD PH 7.35 (7.30-7.42)
[2018-09-20 10:31] LABS: MEAN CORPUSCULAR VOLUME 125 fl (80-97)
[2018-09-20 10:54] LABS: CREATINE KINASE MB 2.83 ng/mL (<4.55); TROPONIN I 0.016 ng/mL
[2018-09-20 10:55] LABS: ALANINE AMINOTRANSFERASE 34 U/L (9-52); ALBUMIN 3.8 g/dL (3.5-5.0); ALKALINE PHOSPHATASE 135 U/L (38-126); ANION GAP 10 (5-19); ASPARTATE AMINO TRANSFERASE 107 U/L (14-36); BILIRUBIN,DIRECT 0.4 mg/dL (0.0-0.4); BILIRUBIN,TOTAL 2.6 mg/dL (0.2-1.3); BLOOD UREA NITROGEN 30 mg/dL (7-20); CALCIUM 8.7 mg/dL (8.4-10.2); CARBON DIOXIDE 25 mmol/L (22-30); CHLORIDE 97 mmol/L (98-107); CREATINE KINASE 38 U/L (30-135); GLUCOSE 125 mg/dL (75-110); POTASSIUM 4.2 mmol/L (3.6-5.0); SODIUM 132.2 mmol/L (137-145)
[2018-09-20 11:00] LABS: ABSOLUTE LYMPHOCYTES# (MANUAL) 0.5 10^3/uL (0.5-4.7); ABSOLUTE MONOCYTES # (MANUAL) 0.1 10^3/uL (0.1-1.4); ABSOLUTE NEUTROPHILS# (MANUAL) 1.4 10^3/uL (1.7-8.2); BASOPHILS % (MANUAL) 0 % (0-2); EOSINOPHILS % (MANUAL) 1 % (0-6); HYPERSEGMENTED NEUTROPHILS PRESENT; LYMPHOCYTES % (MANUAL) 23 % (13-45); MONOCYTES % (MANUAL) 7 % (3-13); NUCLEATED RED BLOOD CELLS 3 /100 WBC (0); PLATELET COMMENT INCREASED; PLATELET GIANT PRESENT; PLATELET LARGE PRESENT; SEGMENTED NEUTROPHILS % (MAN) 68 % (42-78); TOTAL CELLS COUNTED 100; TOXIC GRANULATION SLIGHT; TOXIC VACUOLATION PRESENT
[2018-09-20 11:01] LABS: OVALOCYTES 2+; POIKILOCYTOSIS 3+; POLYCHROMASIA 1+; TEAR DROP CELLS 1+
[2018-09-20 11:02] LABS: HYPOCHROMASIA SLIGHT; SCHISTOCYTES SLIGHT
[2018-09-20] MEDS ORDERED: FUROSEMIDE INJ/PF 40 MG/4 ML SDV IV ONE (11:50)
[2018-09-20] MEDS ORDERED: ONDANSETRON HCL INJ/PF 4 MG/2 ML SDV IV ONE (12:44)
--- NOTE | 2018-09-20 12:50 | EKG REPORT ---
SEVERITY:- ABNORMAL ECG - ATRIAL FIBRILLATION LOW VOLTAGE IN FRONTAL LEADS BORDERLINE T WAVE ABNORMALITIES : Confirmed by: Uriel Gallardo MD 20-Sep-2018 12:49:39
[2018-09-20] MEDS ORDERED: METOPROLOL TARTRATE 25 MG TABLET PO ONE (13:30)
--- NOTE | 2018-09-20 14:48 | ER Document Report ---
ED General - General Chief Complaint: Shortness Of Breath Stated Complaint: SHORTNESS OF BREATH Time Seen by Provider: 09/20/18 10:04 Primary Care Provider: LOC BYERS MD [Primary Care Provider] - Follow up as needed TRAVEL OUTSIDE OF THE [place] IN LAST 30 DAYS: No - HPI Patient complains to provider of: Shortness of breath Notes: Patient presents today with a history of atrial fibrillation coming in for shortness of breath. Patient states ongoing for the last 72-96 hours. Patient states increased dyspnea on exertion with swelling in her legs. Patient lives by herself checked on daily by a neighbor who is at bedside. Demer states the p atuzair has had decline of her story status with a nonproductive cough. Patient states compliant with her medications. Patient is on Eliquis for for her underlying A. fib. Patient states she has not missed any dosage of her rate controlling medication metoprolol. Patient denies any chest pain abdominal pain fevers chills nausea vomiting. Denies any recent antibiotics. Patient found to be slightly hypoxic with SPO2 88% while here in the ER placed on 2 L nasal cannula. - Related Data Allergies/Adverse Reactions: No Known Allergies Allergy (Verified 04/25/18 21:36) Past Medical History - Social History Smoking Status: Unknown if Ever Smoked Family History: Hypertension Patient has suicidal ideation: No Patient has homicidal ideation: No - Past Medical History Cardiac Medical History: Reports: Hx Hypertension Pulmonary Medical History: Denies: Hx Tuberculosis Neurological Medical History: Denies: Hx Seizures Renal/ Medical History: Denies: Hx Peritoneal Dialysis Malignancy Medical History: Reports: Hx Skin Cancer Psychiatric Medical History: Denies: Hx Depression Past Surgical History: Reports: Hx Appendectomy, Hx Hysterectomy. Denies: Hx Pacemaker - Immunizations Hx Diphtheria, Pertussis, Tetanus Vaccination: Yes Hx Pneumococcal Vaccination: 07/31/08 Review of Systems - Review of Systems Constitutional: No symptoms reported EENT: No symptoms reported Cardiovascular: No symptoms reported Respiratory: Short of breath Gastrointestinal: No symptoms reported Genitourinary: No symptoms reported Female Genitourinary: No symptoms reported Musculoskeletal: No symptoms reported Skin: No symptoms reported Hematologic/Lymphatic: No symptoms reported Neurological/Psychological: No symptoms reported -: Yes All other systems reviewed and negative Physical Exam - Vital signs Vitals: Temp Pulse Resp BP Pulse Ox 97.9 F 101 H 26 H 106/77 99 09/20/18 09:38 09/20/18 09:38 09/20/18 09:38 09/20/18 09:38 09/20/18 09:38 Interpretation: Normal - General General appearance: Appears well, Alert - HEENT Head: Normocephalic, Atraumatic Eyes: Normal Pupils: PERRL - Respiratory Respiratory status: No respiratory distress Chest status: Nontender Breath sounds: Rales Chest palpation: Normal - Cardiovascular Rhythm: Regular, Irregularly irregular Heart sounds: Normal auscultation Murmur: No - Abdominal Inspection: Normal Distension: No distension Bowel sounds: Normal Tenderness: Nontender Organomegaly: No organomegaly - Back Back: Normal, Nontender - Extremities General upper extremity: Normal inspection, Nontender, Normal color, Normal ROM, Normal temperature General lower extremity: Normal inspection, Nontender, Normal color, Normal ROM, Normal temperature, Normal weight bearing. No: Yanira's sign - Neurological Neuro grossly intact: Yes Cognition: Normal Orientation: AAOx4 [place] Coma Scale Eye Opening: Spontaneous Anitra Coma Scale Verbal: Oriented [place] Coma Scale Motor: Obeys Commands Anitra Coma Scale Total: 15 Speech: Normal Motor strength normal: LUE, RUE, LLE, RLE Sensory: Normal - Psychological Associated symptoms: Normal affect, Normal mood - Skin Skin Temperature: Warm Skin Moisture: Dry Skin Color: Normal Course - Re-evaluation Re-evalutation: 09/20/18 15:03 Laboratory studies show a decreased right count decrease in absolute neutrophils. Chest x-ray concerning for edema versus pneumonia. Patient has no fevers no productive cough. However she does have dyspnea on exertion and edema in her legs. More consistent with possible CHF exacerbation or fluid overload status. Patient case was initially discussed with her physician Loc Byers MD recommended trial of IV Lasix patient voided multiple times however continued to require oxygen exiting increased her oxygen need while here in ER. Because of the patient's difficulty in ambulation to and from the bathroom increase need of oxygen did feel the patient would be better served here in the hospital Sanchez catheter was placed. We consulted with Loc Byers MD who agrees with admission to [facility] at this time for hypoxemia CHF exacerbation. - Vital Signs Vital signs: Temp Pulse Resp BP Pulse Ox 97.9 F 101 H 26 H 106/77 99 09/20/18 09:38 09/20/18 10:40 09/20/18 09:38 09/20/18 09:38 09/20/18 09:38 - Laboratory Result Diagrams: 09/20/18 09:46 09/20/18 09:46 Laboratory results interpreted by me: 09/20/18 09/20/18 09/20/18 09:46 09:46 09:46 WBC 2.0 L RBC 2.30 L Hgb 9.6 L Hct 28.8 L MCV 125 H MCH 41.8 H RDW 21.4 H Plt Count 726 H Abs Neuts (Manual) 1.4 L Sodium 132.2 L Chloride 97 L BUN 30 H Glucose 125 H Total Bilirubin 2.6 H AST 107 H Alkaline Phosphatase 135 H NT-Pro-B Natriuret Pep 6320 H Total Protein 6.0 L Discharge - Discharge Clinical Impression: Atrial fibrillation, CHF (congestive heart failure), Hypoxemia Condition: Stable Disposition: ADMITTED INPATIENT Admitting Provider: Dionne Unit Admitted: [facility] Referrals: LOC BYERS MD [Primary Care Provider] - Follow up as needed
[2018-09-20] MEDS ORDERED: DILTIAZEM HCL/D5W 125 MG/125 ML RTUINJ IV PRN (17:51)
[2018-09-20] MEDS ORDERED: TOBRAMYCIN SULFATE/DEXAMETH OPH OINTMENT 3.5 GM OU PRN (17:52)
[2018-09-20] MEDS ORDERED: IMIPENEM/CILASTATIN SODIUM 500 MG in NORMAL SALINE 100 ML IV SCH (18:00)
--- NOTE | 2018-09-20 18:04 | PDOC H&P ---
History of Present Illness Admission Date/PCP: 09/20/18 14:59 JAVIER BYERS MD Patient complains of: Not feeling well,. Confusion, A. fib with rapid ventricular response History of Present Illness: DEEDEE VILLALOBOS is a 88 year old female Past Medical History Cardiac Medical History: Reports: Atrial Fibrillation, Hypertension Pulmonary Medical History: Denies: Tuberculosis Neurological Medical History: Denies: Seizures Malignancy Medical History: Reports: Skin Cancer, Other Malignancy History Note: Polycythemia vera Psychiatric Medical History: Denies: Depression Hematology: Reports: Anemia Past Surgical History Past Surgical History: Reports: Appendectomy, Hysterectomy Denies: Pacemaker Social History Information Source: Patient Lives with: Alone Smoking Status: Unknown if Ever Smoked Frequency of Alcohol Use: None Hx Recreational Drug Use: No Drugs: None Hx Prescription Drug Abuse: No Family History Family History: Reviewed & Not Pertinent, Hypertension Parental Family History Reviewed: Yes Children Family History Reviewed: Yes Sibling(s) Family History Reviewed.: Yes Medication/Allergy Home Medications: Apixaban [Eliquis 2.5 mg Tablet] 2.5 mg PO Q12 09/20/18 Hydrochlorothiazide [Hydrodiuril 25 mg Tablet] 25 mg PO DAILY 09/20/18 Hydroxyurea [Hydrea 500 mg Capsule] 1,500 mg PO SUTUTHSA@1400 09/20/18 Hydroxyurea [Hydrea 500 mg Capsule] 2,000 mg PO MOWEFR@1400 09/20/18 Metoprolol Tartrate [Lopressor 50 mg Tablet] 50 mg PO Q12 09/20/18 Potassium Chloride [Klor-Con 10 Meq Capsule ER] 10 meq PO DAILY 09/20/18 Tobramycin Sulfate/Dexameth [Tobradex Oph Ointment 3.5 gm] 1 applic OU DAILYP PRN 09/20/18 Allergies/Adverse Reactions: No Known Allergies Allergy (Verified 04/25/18 21:36) Review of Systems All systems: as per PMH Physical Exam Vital Signs: Temp Pulse Resp BP Pulse Ox 97.9 F 104 H 26 H 118/75 99 09/20/18 09:38 09/20/18 14:40 09/20/18 09:38 09/20/18 14:40 09/20/18 09:38 Intake & Output 09/19/18 09/20/18 09/21/18 06:59 06:59 06:59 Weight 68.039 kg General appearance: PRESENT: severe distress Head exam: PRESENT: atraumatic Neck exam: PRESENT: carotid bruit. ABSENT: JVD Respiratory exam: PRESENT: crackles Cardiovascular exam: PRESENT: irregular rhythm, +S1, +S2 GI/Abdominal exam: PRESENT: normal bowel sounds, soft Extremities exam: PRESENT: pedal edema Neurological exam: PRESENT: awake Psychiatric exam: PRESENT: anxious Focused psych exam: PRESENT: restlessness Additional comments: Confused Results Laboratory Results: 09/20/18 09:46 09/20/18 09:46 09/20/18 09/20/18 09/20/18 09:46 09:46 09:46 WBC 2.0 L RBC 2.30 L Hgb 9.6 L Hct 28.8 L MCV 125 H MCH 41.8 H MCHC 33.4 RDW 21.4 H Plt Count 726 H Seg Neutrophils % Not Reportable Lymphocytes % Not Reportable Monocytes % Not Reportable Eosinophils % Not Reportable Basophils % Not Reportable Absolute Neutrophils Not Reportable Absolute Lymphocytes Not Reportable Absolute Monocytes Not Reportable Absolute Eosinophils Not Reportable Absolute Basophils Not Reportable VBG pH 7.35 VBG pCO2 50.3 VBG HCO3 27.3 VBG Base Excess 0.8 Sodium Cancelled Potassium Cancelled Chloride Cancelled Carbon Dioxide Cancelled Anion Gap Cancelled BUN Cancelled Creatinine Cancelled Est GFR ( Amer) Cancelled Est GFR (Non-Af Amer) Cancelled Glucose Cancelled Calcium Cancelled Total Bilirubin Cancelled AST Cancelled ALT Cancelled Alkaline Phosphatase Cancelled Total Protein Cancelled Albumin Cancelled 09/20/18 09:46 WBC RBC Hgb Hct MCV MCH MCHC RDW Plt Count Seg Neutrophils % Lymphocytes % Monocytes % Eosinophils % Basophils % Absolute Neutrophils Absolute Lymphocytes Absolute Monocytes Absolute Eosinophils Absolute Basophils VBG pH VBG pCO2 VBG HCO3 VBG Base Excess Sodium 132.2 L Potassium 4.2 Chloride 97 L Carbon Dioxide 25 Anion Gap 10 BUN 30 H Creatinine 0.55 Est GFR ( Amer) > 60 Est GFR (Non-Af Amer) > 60 Glucose 125 H Calcium 8.7 Total Bilirubin 2.6 H AST 107 H ALT 34 Alkaline Phosphatase 135 H Total Protein 6.0 L Albumin 3.8 09/20/18 09/20/18 09/20/18 09:46 09:46 09:46 Creatine Kinase Cancelled 38 CK-MB (CK-2) 2.83 Troponin I 0.016 NT-Pro-B Natriuret Pep 6320 H Impressions: Chest X-Ray 09/20/18 09:21 IMPRESSION: Small bilateral pleural effusions with bibasilar airspace disease Marked cardiomegaly Assessment & Plan - Diagnosis (1) Upper respiratory tract infection Qualifiers: URI type: unspecified URI Qualified Code(s): J06.9 - Acute upper respiratory infection, unspecified Is this a current diagnosis for this admission?: Yes Plan: Possible cause for confusion. Will start the antibiotics (2) Atrial fibrillation Qualifiers: Atrial fibrillation type: chronic Qualified Code(s): I48.2 - Chronic atrial fibrillation Is this a current diagnosis for this admission?: Yes Plan: We will start the Cardizem drip (3) CHF (congestive heart failure) Qualifiers: Heart failure type: combined systolic and diastolic Heart failure chronicity: chronic Qualified Code(s): I50.42 - Chronic combined systolic (congestive) and diastolic (congestive) heart failure Is this a current diagnosis for this admission?: Yes Plan: We will rate control and add diuretic (4) Hypoxemia Is this a current diagnosis for this admission?: Yes Plan: We will obtain blood gas (5) Anemia Qualifiers: Anemia type: iron deficiency Is this a current diagnosis for this admission?: Yes Plan: Continue current treatment (6) Polycythemia vera Is this a current diagnosis for this admission?: Yes Plan: Continue current treatment (7) DNR (do not resuscitate) Is this a current diagnosis for this admission?: Yes Plan: Continue DNR status
[2018-09-20 18:31] LABS: APPEARANCE,URINE CLEAR; BILIRUBIN,URINE NEGATIVE (NEGATIVE); COLOR,URINE STRAW; GLUCOSE, URINE NEGATIVE (NEGATIVE); KETONES,URINE NEGATIVE (NEGATIVE); LEUKOCYTE ESTERASE,URINE NEGATIVE (NEGATIVE); NITRITE,URINE NEGATIVE (NEGATIVE); PROTEIN,URINE NEGATIVE (NEGATIVE); URINE SPECIFIC GRAVITY 1.006; UROBILINOGEN,URINE NEGATIVE mg/dL (<2.0)
[2018-09-20] MEDS ORDERED: OSELTAMIVIR PHOSPHATE 75 MG CAPSULE PO SCH (19:00)
[2018-09-20 19:46] LABS: CREATINE KINASE MB 2.42 ng/mL (<4.55); TROPONIN I 0.014 ng/mL
[2018-09-20 19:53] LABS: ARTERIAL BLOOD BASE EXCESS 0.3 mmol/L; ARTERIAL BLOOD FIO2 2.5; ARTERIAL BLOOD H2CO3 1.04 mmol/L (1.05-1.35); ARTERIAL BLOOD HCO3 23.6 mmol/L (20-24); ARTERIAL BLOOD O2 SATURATION 96.4 % (94-98); ARTERIAL BLOOD PCO2 34.4 mmHg (35-45); ARTERIAL BLOOD PH 7.45 (7.35-7.45); ARTERIAL BLOOD PO2 79.7 mmHg (80-100); ARTERIAL BLOOD TOTAL CO2 24.6 mmol/L (21-25)
[2018-09-20] MEDS ORDERED: OSELTAMIVIR PHOSPHATE 30 MG CAPSULE PO SCH (20:30)
[2018-09-20] MEDS ORDERED: FUROSEMIDE INJ/PF 40 MG/4 ML SDV IV SCH (22:00)
[2018-09-20] MEDS: IMIPENEM/CILASTATIN SODIUM 500 MG in NORMAL SALINE 100 ML IV SCH (22:34)
[2018-09-20] MEDS: APIXABAN 2.5 MG TABLET PO SCH (22:46)
[2018-09-21 01:43] LABS: CREATINE KINASE MB 1.76 ng/mL (<4.55); TROPONIN I 0.024 ng/mL
[2018-09-21] MEDS: IMIPENEM/CILASTATIN SODIUM 500 MG in NORMAL SALINE 100 ML IV SCH ×3 (05:48→22:28)
[2018-09-21 08:31] LABS: HEMATOCRIT 24.1 % (36.0-47.0); HEMOGLOBIN 8.3 g/dL (12.0-15.5); MEAN CORPUSCULAR HGB CONC 34.5 g/dL (32.0-36.0); MEAN CORPUSCULAR VOLUME 122 fl (80-97); PLATELET COUNT 488 10^3/uL (150-450); RED BLOOD COUNT 1.98 10^6/uL (3.72-5.28); RED CELL DISTRIBUTION WIDTH 20.7 % (11.5-14.0); WHITE BLOOD COUNT 1.7 10^3/uL (4.0-10.5)
--- NOTE | 2018-09-21 08:35 | PDOC PROGRESS REPORT ---
Subjective Progress Note for:: 09/21/18 Subjective:: The patient is awake but lethargic. She denies any complaints. She appears to be confused. She does have some dry cough. Heart rate is relatively well controlled. Her blood pressure is slightly down. Reason For Visit: HEART FAILURE, ATRIAL FIBRILLATION WITH Physical Exam Vital Signs: Temp Pulse Resp BP Pulse Ox 98.3 F 98 20 85/44 L 95 09/21/18 07:33 09/21/18 07:33 09/21/18 07:33 09/21/18 07:33 09/20/18 22:53 Intake & Output 09/20/18 09/21/18 09/22/18 06:59 06:59 06:59 Intake Total 200 Output Total 1000 Balance -800 Weight 70.9 kg General appearance: PRESENT: mild distress Head exam: PRESENT: atraumatic Eye exam: PRESENT: conjunctiva pink Neck exam: PRESENT: carotid bruit. ABSENT: JVD Respiratory exam: PRESENT: crackles Cardiovascular exam: PRESENT: irregular rhythm, +S1, +S2 GI/Abdominal exam: PRESENT: normal bowel sounds, soft Extremities exam: PRESENT: tenderness Musculoskeletal exam: PRESENT: tenderness Neurological exam: PRESENT: alert, awake Psychiatric exam: PRESENT: anxious Results Laboratory Results: 09/20/18 09/20/18 09/20/18 09:46 09:46 09:46 WBC 2.0 L RBC 2.30 L Hgb 9.6 L Hct 28.8 L MCV 125 H MCH 41.8 H MCHC 33.4 RDW 21.4 H Plt Count 726 H Seg Neutrophils % Not Reportable Lymphocytes % Not Reportable Monocytes % Not Reportable Eosinophils % Not Reportable Basophils % Not Reportable Absolute Neutrophils Not Reportable Absolute Lymphocytes Not Reportable Absolute Monocytes Not Reportable Absolute Eosinophils Not Reportable Absolute Basophils Not Reportable Carbonic Acid HCO3/H2CO3 Ratio ABG pH ABG pCO2 ABG pO2 ABG HCO3 ABG O2 Saturation ABG Base Excess VBG pH 7.35 VBG pCO2 50.3 VBG HCO3 27.3 VBG Base Excess 0.8 FiO2 Sodium Cancelled Potassium Cancelled Chloride Cancelled Carbon Dioxide Cancelled Anion Gap Cancelled BUN Cancelled Creatinine Cancelled Est GFR ( Amer) Cancelled Est GFR (Non-Af Amer) Cancelled Glucose Cancelled Calcium Cancelled Total Bilirubin Cancelled AST Cancelled ALT Cancelled Alkaline Phosphatase Cancelled Total Protein Cancelled Albumin Cancelled Urine Color Urine Appearance Urine pH Ur Specific [employer] Urine Protein Urine Glucose (UA) Urine Ketones Urine Blood Urine Nitrite Ur Leukocyte Esterase Urine WBC (Auto) 09/20/18 09/20/18 09/20/18 09:46 17:50 19:35 WBC RBC Hgb Hct MCV MCH MCHC RDW Plt Count Seg Neutrophils % Lymphocytes % Monocytes % Eosinophils % Basophils % Absolute Neutrophils Absolute Lymphocytes Absolute Monocytes Absolute Eosinophils Absolute Basophils Carbonic Acid 1.04 L HCO3/H2CO3 Ratio 22:1 ABG pH 7.45 ABG pCO2 34.4 L ABG pO2 79.7 L ABG HCO3 23.6 ABG O2 Saturation 96.4 ABG Base Excess 0.3 VBG pH VBG pCO2 VBG HCO3 VBG Base Excess FiO2 2.5 Sodium 132.2 L Potassium 4.2 Chloride 97 L Carbon Dioxide 25 Anion Gap 10 BUN 30 H Creatinine 0.55 Est GFR ( Amer) > 60 Est GFR (Non-Af Amer) > 60 Glucose 125 H Calcium 8.7 Total Bilirubin 2.6 H AST 107 H ALT 34 Alkaline Phosphatase 135 H Total Protein 6.0 L Albumin 3.8 Urine Color STRAW Urine Appearance CLEAR Urine pH 5.0 Ur Specific [employer] 1.006 Urine Protein NEGATIVE Urine Glucose (UA) NEGATIVE Urine Ketones NEGATIVE Urine Blood NEGATIVE Urine Nitrite NEGATIVE Ur Leukocyte Esterase NEGATIVE Urine WBC (Auto) 1 09/20/18 09/20/18 09/20/18 09:46 09:46 09:46 Creatine Kinase Cancelled 38 CK-MB (CK-2) 2.83 Troponin I 0.016 NT-Pro-B Natriuret Pep 6320 H 09/20/18 09/20/18 09/21/18 18:39 18:39 00:58 Creatine Kinase 45 26 L CK-MB (CK-2) 2.42 Troponin I 0.014 NT-Pro-B Natriuret Pep 09/21/18 00:58 Creatine Kinase CK-MB (CK-2) 1.76 Troponin I 0.024 NT-Pro-B Natriuret Pep Impressions: Chest X-Ray 09/20/18 09:21 IMPRESSION: Small bilateral pleural effusions with bibasilar airspace disease Marked cardiomegaly Assessment & Plan - Diagnosis (1) Upper respiratory tract infection Qualifiers: URI type: unspecified URI Qualified Code(s): J06.9 - Acute upper respiratory infection, unspecified Is this a current diagnosis for this admission?: Yes Plan: Continue current treatment for another 24 hours and then reevaluate (2) Atrial fibrillation Qualifiers: Atrial fibrillation type: chronic Qualified Code(s): I48.2 - Chronic atrial fibrillation Is this a current diagnosis for this admission?: Yes Plan: We will try to switch from Cardizem IV to Cardizem p.o. (3) CHF (congestive heart failure) Qualifiers: Heart failure type: combined systolic and diastolic Heart failure chronicity: chronic Qualified Code(s): I50.42 - Chronic combined systolic (congestive) and diastolic (congestive) heart failure Is this a current diagnosis for this admission?: Yes Plan: We will switch to p.o. diuretics and fluid restriction (4) Hypoxemia Is this a current diagnosis for this admission?: Yes (5) Anemia Qualifiers: Anemia type: iron deficiency Is this a current diagnosis for this admission?: Yes Plan: Continue current treatment (6) Polycythemia vera Is this a current diagnosis for this admission?: Yes Plan: Continue current treatment (7) DNR (do not resuscitate) Is this a current diagnosis for this admission?: Yes Plan: Continue DNR status (8) Confusion and disorientation Is this a current diagnosis for this admission?: Yes Plan: Possibly secondary to infection. Will add some Seroquel
[2018-09-21 08:43] LABS: ANION GAP 8 (5-19); BLOOD UREA NITROGEN 28 mg/dL (7-20); CARBON DIOXIDE 30 mmol/L (22-30); CHLORIDE 92 mmol/L (98-107); CREATINE KINASE 25 U/L (30-135); GLUCOSE 109 mg/dL (75-110)
[2018-09-21 08:55] LABS: CREATINE KINASE MB 1.76 ng/mL (<4.55); TROPONIN I 0.033 ng/mL
[2018-09-21 08:57] LABS: POTASSIUM 3.2 mmol/L (3.6-5.0)
[2018-09-21] MEDS: DILTIAZEM HCL 30 MG TABLET PO SCH ×3 (09:18→22:28)
[2018-09-21] MEDS ORDERED: NORMAL SALINE 250 ML IV PRN ×2 (09:21)
[2018-09-21] MEDS ORDERED: ACETAMINOPHEN 325 MG TABLET PO PRN (09:22)
[2018-09-21 09:48] LABS: ABSOLUTE LYMPHOCYTES# (MANUAL) 0.6 10^3/uL (0.5-4.7); ABSOLUTE MONOCYTES # (MANUAL) 0.3 10^3/uL (0.1-1.4); ABSOLUTE NEUTROPHILS# (MANUAL) 0.9 10^3/uL (1.7-8.2); BAND NEUTROPHILS % (MANUAL) 5 % (3-5); BASOPHILS % (MANUAL) 0 % (0-2); EOSINOPHILS % (MANUAL) 0 % (0-6); LYMPHOCYTES % (MANUAL) 35 % (13-45); MONOCYTES % (MANUAL) 15 % (3-13); NUCLEATED RED BLOOD CELLS 8 /100 WBC (0); PLATELET COMMENT ADEQUATE; PLATELET GIANT PRESENT; PLATELET LARGE PRESENT; SEGMENTED NEUTROPHILS % (MAN) 45 % (42-78); TOTAL CELLS COUNTED 100; TOXIC GRANULATION SLIGHT; TOXIC VACUOLATION PRESENT
[2018-09-21 09:49] LABS: ANISOCYTOSIS 2+; OVALOCYTES 2+; POIKILOCYTOSIS 2+; POLYCHROMASIA 2+; SCHISTOCYTES SLIGHT; TEAR DROP CELLS SLIGHT
[2018-09-21] MEDS ORDERED: OSELTAMIVIR PHOSPHATE 75 MG CAPSULE PO SCH (10:00)
[2018-09-21] MEDS: FUROSEMIDE 40 MG TABLET PO SCH (12:07)
[2018-09-21] MEDS: POTASSIUM CHLORIDE 10 MEQ CAPSULE.ER PO SCH (12:08)
[2018-09-21] MEDS: OSELTAMIVIR PHOSPHATE 30 MG CAPSULE PO SCH ×2 (13:42→18:54)
[2018-09-21] MEDS: APIXABAN 2.5 MG TABLET PO SCH ×2 (13:57→22:28)
[2018-09-21 14:52] LABS: PATH REVIEW PATHOLOGIST REVIEWED
[2018-09-21 19:56] LABS: HEMATOCRIT 28.3 % (36.0-47.0); MEAN CORPUSCULAR HEMOGLOBIN 38.9 pg (27.0-33.4); MEAN CORPUSCULAR HGB CONC 35.2 g/dL (32.0-36.0); PLATELET COUNT 472 10^3/uL (150-450); RED BLOOD COUNT 2.57 10^6/uL (3.72-5.28); RED CELL DISTRIBUTION WIDTH 26.6 % (11.5-14.0)
[2018-09-21 20:01] LABS: MEAN CORPUSCULAR VOLUME 110 fl (80-97); WHITE BLOOD COUNT 2.9 10^3/uL (4.0-10.5)
[2018-09-21 20:32] LABS: ABSOLUTE LYMPHOCYTES# (MANUAL) 0.6 10^3/uL (0.5-4.7); ABSOLUTE MONOCYTES # (MANUAL) 0.1 10^3/uL (0.1-1.4); ABSOLUTE NEUTROPHILS# (MANUAL) 2.1 10^3/uL (1.7-8.2); BAND NEUTROPHILS % (MANUAL) 7 % (3-5); BASOPHILS % (MANUAL) 0 % (0-2); EOSINOPHILS % (MANUAL) 1 % (0-6); LYMPHOCYTES % (MANUAL) 22 % (13-45); MONOCYTES % (MANUAL) 3 % (3-13); NUCLEATED RED BLOOD CELLS 4 /100 WBC (0); SEGMENTED NEUTROPHILS % (MAN) 65 % (42-78); TOTAL CELLS COUNTED 100
[2018-09-21 20:36] LABS: ANISOCYTOSIS 3+; OVALOCYTES 1+; PLATELET COMMENT INCREASED; PLATELET LARGE PRESENT; POIKILOCYTOSIS 1+; TEAR DROP CELLS SLIGHT; TOXIC GRANULATION SLIGHT
[2018-09-21 20:38] LABS: TOXIC VACUOLATION PRESENT
[2018-09-21 20:39] LABS: METAMYELOCYTES % (MANUAL) 2 % (0)
--- NOTE | 2018-09-21 22:27 | PDOC CONSULTATION ---
Consultation-Blank Consultation: CARDIOLOGY CONSULTATION by Dr. Odalys Santiago on 09/21/2018. Patient seen at 5:30 PM on . REASON FOR CONSULTATION: Atrial fibrillation with rapid ventricular response.
[2018-09-21] MEDS: QUETIAPINE FUMARATE 25 MG TABLET PO SCH (22:28)
[2018-09-22] MEDS ORDERED: DILTIAZEM HCL INJ 25 MG/5 ML VIAL IV ONE (03:30)
[2018-09-22] MEDS: IMIPENEM/CILASTATIN SODIUM 500 MG in NORMAL SALINE 100 ML IV SCH ×2 (05:29→13:47)
[2018-09-22] MEDS: DILTIAZEM HCL 30 MG TABLET PO SCH ×3 (05:40→22:34)
[2018-09-22 06:37] LABS: HEMATOCRIT 26.8 % (36.0-47.0); HEMOGLOBIN 9.5 g/dL (12.0-15.5); MEAN CORPUSCULAR HEMOGLOBIN 39.7 pg (27.0-33.4); MEAN CORPUSCULAR HGB CONC 35.6 g/dL (32.0-36.0); MEAN CORPUSCULAR VOLUME 112 fl (80-97); PLATELET COUNT 337 10^3/uL (150-450); RED BLOOD COUNT 2.41 10^6/uL (3.72-5.28); RED CELL DISTRIBUTION WIDTH 27.5 % (11.5-14.0); WHITE BLOOD COUNT 1.9 10^3/uL (4.0-10.5)
[2018-09-22 06:51] LABS: ANION GAP 7 (5-19); BLOOD UREA NITROGEN 29 mg/dL (7-20); CALCIUM 7.8 mg/dL (8.4-10.2); CARBON DIOXIDE 28 mmol/L (22-30); CHLORIDE 95 mmol/L (98-107); GLUCOSE 112 mg/dL (75-110); POTASSIUM 3.3 mmol/L (3.6-5.0); SODIUM 129.9 mmol/L (137-145)
[2018-09-22 07:19] LABS: ABSOLUTE LYMPHOCYTES# (MANUAL) 0.6 10^3/uL (0.5-4.7); ABSOLUTE MONOCYTES # (MANUAL) 0.2 10^3/uL (0.1-1.4); ABSOLUTE NEUTROPHILS# (MANUAL) 1.1 10^3/uL (1.7-8.2); BAND NEUTROPHILS % (MANUAL) 5 % (3-5); BASOPHILS % (MANUAL) 0 % (0-2); EOSINOPHILS % (MANUAL) 1 % (0-6); LYMPHOCYTES % (MANUAL) 33 % (13-45); METAMYELOCYTES % (MANUAL) 1 % (0); MONOCYTES % (MANUAL) 8 % (3-13); SEGMENTED NEUTROPHILS % (MAN) 52 % (42-78); TOTAL CELLS COUNTED 100
[2018-09-22 07:20] LABS: ANISOCYTOSIS 3+; OVALOCYTES 2+; PLATELET COMMENT ADEQUATE; POIKILOCYTOSIS 2+; POLYCHROMASIA 1+; TEAR DROP CELLS SLIGHT
[2018-09-22] MEDS: FUROSEMIDE 40 MG TABLET PO SCH (10:22)
[2018-09-22] MEDS: APIXABAN 2.5 MG TABLET PO SCH ×2 (10:22→22:35)
[2018-09-22] MEDS: POTASSIUM CHLORIDE 10 MEQ CAPSULE.ER PO SCH (10:22)
[2018-09-22] MEDS: OSELTAMIVIR PHOSPHATE 30 MG CAPSULE PO SCH ×2 (10:23→18:06)
[2018-09-22 12:11] LABS: HEMATOCRIT 26.8 % (36.0-47.0); HEMOGLOBIN 9.6 g/dL (12.0-15.5); MEAN CORPUSCULAR HEMOGLOBIN 40.1 pg (27.0-33.4); MEAN CORPUSCULAR VOLUME 112 fl (80-97); PLATELET COUNT 350 10^3/uL (150-450); RED CELL DISTRIBUTION WIDTH 27.4 % (11.5-14.0); WHITE BLOOD COUNT 2.2 10^3/uL (4.0-10.5)
[2018-09-22 12:30] LABS: ABSOLUTE LYMPHOCYTES# (MANUAL) 0.3 10^3/uL (0.5-4.7); ABSOLUTE MONOCYTES # (MANUAL) 0.3 10^3/uL (0.1-1.4); ABSOLUTE NEUTROPHILS# (MANUAL) 1.5 10^3/uL (1.7-8.2); BAND NEUTROPHILS % (MANUAL) 1 % (3-5); BASOPHILS % (MANUAL) 3 % (0-2); EOSINOPHILS % (MANUAL) 0 % (0-6); LYMPHOCYTES % (MANUAL) 13 % (13-45); MONOCYTES % (MANUAL) 13 % (3-13); NUCLEATED RED BLOOD CELLS 1 /100 WBC (0); SEGMENTED NEUTROPHILS % (MAN) 69 % (42-78); TOTAL CELLS COUNTED 100
[2018-09-22 12:32] LABS: TOXIC GRANULATION 1+
[2018-09-22 12:33] LABS: ANISOCYTOSIS 3+; OVALOCYTES 1+; PLATELET COMMENT ADEQUATE; PLATELET LARGE PRESENT; POIKILOCYTOSIS 1+; POLYCHROMASIA 1+; TEAR DROP CELLS SLIGHT
--- NOTE | 2018-09-22 15:43 | PDOC PROGRESS REPORT ---
Subjective Progress Note for:: 09/22/18 Subjective:: NO overnight events. Long discussion with patient's son this morning who felt that his mother was more fatigued this AM. UPon questions patient, she is more awake and answering questions appropriately. Intermittent confusion however patient does have baseline dementia. Denies pain. Pt states that "I am taking too many medications". NO other complaints. Reason For Visit: HEART FAILURE, ATRIAL FIBRILLATION WITH Physical Exam Vital Signs: Temp Pulse Resp BP Pulse Ox 97.8 F 94 18 133/77 H 94 09/22/18 15:18 09/22/18 15:18 09/22/18 15:18 09/22/18 15:18 09/22/18 15:18 Intake & Output 09/21/18 09/22/18 09/23/18 06:59 06:59 06:59 Intake Total 200 1473 337 Output Total 1000 725 275 Balance -800 748 62 Weight 70.9 kg 72.9 kg General appearance: PRESENT: no acute distress, well-developed, well-nourished Mouth exam: PRESENT: dry mucosa Cardiovascular exam: PRESENT: irregular rhythm. ABSENT: tachycardia GI/Abdominal exam: PRESENT: diminished bowel sounds, soft. ABSENT: tenderness Extremities exam: PRESENT: +1 edema Neurological exam: PRESENT: alert, awake, other - Speech is fluent but confused at times Psychiatric exam: PRESENT: anxious Skin exam: PRESENT: intact Results Laboratory Results: 09/22/18 11:40 09/22/18 05:50 09/21/18 09/21/18 09/22/18 10:14 19:45 05:50 WBC 2.9 L D 1.9 L RBC 2.57 L 2.41 L Hgb 10.0 L 9.5 L Hct 28.3 L 26.8 L MCV 110 H D 112 H MCH 38.9 H 39.7 H MCHC 35.2 35.6 RDW 26.6 H 27.5 H Plt Count 472 H 337 Seg Neutrophils % Not Reportable Not Reportable Lymphocytes % Not Reportable Not Reportable Monocytes % Not Reportable Not Reportable Eosinophils % Not Reportable Not Reportable Basophils % Not Reportable Not Reportable Absolute Neutrophils Not Reportable Not Reportable Absolute Lymphocytes Not Reportable Not Reportable Absolute Monocytes Not Reportable Not Reportable Absolute Eosinophils Not Reportable Not Reportable Absolute Basophils Not Reportable Not Reportable Sodium Potassium Chloride Carbon Dioxide Anion Gap BUN Creatinine Est GFR ( Amer) Est GFR (Non-Af Amer) Glucose Calcium Blood Type O POSITIVE Antibody Screen NEGATIVE 09/22/18 09/22/18 09/22/18 05:50 11:00 11:40 WBC 2.2 L RBC 2.40 L Hgb 9.6 L Hct 26.8 L MCV 112 H MCH 40.1 H MCHC 36.0 RDW 27.4 H Plt Count 350 Cancelled Seg Neutrophils % Not Reportable Lymphocytes % Not Reportable Monocytes % Not Reportable Eosinophils % Not Reportable Basophils % Not Reportable Absolute Neutrophils Not Reportable Absolute Lymphocytes Not Reportable Absolute Monocytes Not Reportable Absolute Eosinophils Not Reportable Absolute Basophils Not Reportable Sodium 129.9 L Potassium 3.3 L Chloride 95 L Carbon Dioxide 28 Anion Gap 7 BUN 29 H Creatinine 0.64 Est GFR ( Amer) > 60 Est GFR (Non-Af Amer) > 60 Glucose 112 H Calcium 7.8 L Blood Type Antibody Screen 09/20/18 09/20/18 09/20/18 09:46 09:46 09:46 Creatine Kinase Cancelled 38 CK-MB (CK-2) 2.83 Troponin I 0.016 NT-Pro-B Natriuret Pep 6320 H 09/20/18 09/20/18 09/21/18 18:39 18:39 00:58 Creatine Kinase 45 26 L CK-MB (CK-2) 2.42 Troponin I 0.014 NT-Pro-B Natriuret Pep 09/21/18 09/21/18 09/21/18 00:58 08:03 08:03 Creatine Kinase 25 L CK-MB (CK-2) 1.76 1.76 Troponin I 0.024 0.033 NT-Pro-B Natriuret Pep 8390 H Impressions: Chest X-Ray 09/20/18 09:21 IMPRESSION: Small bilateral pleural effusions with bibasilar airspace disease Marked cardiomegaly Assessment & Plan - Diagnosis (1) Upper respiratory tract infection Qualifiers: URI type: unspecified URI Qualified Code(s): J06.9 - Acute upper respiratory infection, unspecified Is this a current diagnosis for this admission?: Yes Plan: Reported by RN that patient was flu positive however am not finding this in chart. Will verify - Patient has been on Primaxin, which was placed by her primary physician - [place] has been afebrile and no WBC (however given age and history of PCV), she might not mount proper response - CXR showed patchy airspace disease - It is unclear she has a bacterial PNA at this time Plan - Will d/c Primaxin on 09/22. Low threshold to re-start abx if patient's status worsens - COntinue Tamiflu for 5 day course, end date is 09/26 (2) Confusion and disorientation Is this a current diagnosis for this admission?: Yes Plan: LIkely in setting of viral infection and hopsitaliztion on top of underlying dementia - Has good family support with son - Avoid delerium inducing medications (3) Hypoxemia Is this a current diagnosis for this admission?: Yes Plan: Likely multifactorial - Per discussion with son, she does not have a baseline O2 requirement - Will CTM - Provide supplmental O2 as needed - Repeat CXR in next 1-2 days, earlier if indicated (4) Anemia Qualifiers: Anemia type: iron deficiency Is this a current diagnosis for this admission?: Yes Plan: Patient has history blood disorder - son unclear of diagnosis - Hg has been stable and no indication for transfusion - MCV elevated which could be due to low folate, B12, MDS (5) Leukopenia Is this a current diagnosis for this admission?: Yes - Time Time Spent with patient: 15-24 minutes
[2018-09-22] MEDS: DILTIAZEM HCL/D5W 125 MG/125 ML RTUINJ IV PRN (20:40)
--- NOTE | 2018-09-22 21:01 | Progress Note ---
Provider Note Provider Note: CARDIOLOGY PROGRESS NOTE BY Dr.LAKSHMI FLETCHER ON 09/22/2018. SUBJECTIVE: The patient is at present asleep. As per the son she woke up this morning and was very lucid and oriented x3. Later in the evening the patient's heart rate went up to 130 with the patient showing atrial fibrillation with rapid ventricular response. Patient denies chest pain or discomfort. She still has some shortness of breath. There is no ventricular arrhythmia seen on the monitor. There is no chest pain or discomfort. There is no bleeding on Eliquis. There is no TIA CVA symptoms. PHYSICAL EXAMINATION: The patient is in no acute distress. She appears a frail build. She is chronically ill looking. She appears older than his stated age. 09/22/18 09/22/18 09/22/18 15:18 16:00 17:00 Temperature 97.8 F Temperature Oral Source Heart Rate ( 117 118 Monitors) Respiratory 18 Rate Blood Pressure 133/77 H Blood Pressure 95 Mean BP Location Left Arm BP Position Supine O2 Sat by Pulse 94 Oximetry Oxygen Flow 4.00 Rate O2 Sat by Pulse 94 Oximetry by Telemetry HEAD: Is atraumatic normocephalic. EYES: Pupils are equal round regular react to light accommodation. Extraocular movements are normal. There is mild conjunctival pallor. There is no scleral icterus. ENT is negative. Neck is supple there is no JVD carotids are equal there is no bruits. There is no lymphadenopathy. There is no accessory muscle respiration use. Skin: There is a superficial lesions of ulceration throughout the skin. This is due to the patient's history of skin cancer. LUNGS: There is diminished air entry prolonged expiration and scattered rhonchi. There is no wheezing or rales. A few dry crackles in both bases consistent with bibasilar pneumoni. HEART: S1-S2 is heard. S1 is of variable intensity. There is no S3 gallop. There is no S4 gallop. There is systolic murmur left sternal border and the apex there is no rub. ABDOMEN: Is soft. There is no hepatosplenic megaly. Bowel sounds are well heard. EXTREMITIES: Femorals are diminished. There is no femoral bruits. Leg pulses are diminished. There is no pedal edema. There is no DVT or cellulitis. There is no calf tenderness. 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 PSYCHIATRIC: The patient does not appear to be agitated or anxious. 09/21/18 09/21/18 09/21/18 00:58 08:03 08:03 WBC Hgb Hct MCV MCH MCHC Plt Count Sodium Potassium Chloride Carbon Dioxide BUN Creatinine Est GFR (Non-Af Amer) Glucose Calcium Creatine Kinase 25 L CK-MB (CK-2) 1.76 1.76 Troponin I 0.024 0.033 NT-Pro-B Natriuret Pep 8390 H 09/22/18 09/22/18 05:50 11:00 WBC 2.2 L Hgb 9.6 L Hct 26.8 L MCV 112 H MCH 40.1 H MCHC 36.0 Plt Count 350 Sodium 129.9 L Potassium 3.3 L Chloride 95 L Carbon Dioxide 28 BUN 29 H Creatinine 0.64 Est GFR (Non-Af Amer) > 60 Glucose 112 H Calcium 7.8 L Creatine Kinase CK-MB (CK-2) Troponin I NT-Pro-B Natriuret Pep IMPRESSION/RECOMMENDATION: 1. Bibasilar pneumonia: Continue antibiotics. Question influenza pneumonia. I do not see any lab results supporting this. 2. Atrial fibrillation with fast ventricular response. The patient has persistent atrial fibrillation. We will start the patient on IV Cardizem drip. Continue Eliquis. Cautiously in view of the patient's age, frail build, and anemia. 3. Leukopenia: Most likely effect of hydroxyurea. Note hydroxyurea has been stopped. 4. 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 For the time being this has been held. 5. Moderate mitral regurgitation by a echo of March 2018. Physical examination shows that the patient still has some mitral regurgitation. 6. Moderate pulmonary hypertension by echo of 03/2018. Continue current medication. 7. History of skin cancer: At present does not seem to be an active problem. Occasions reviewed. Medications added. Discussed management plan with the attending physicians on the case. Discussed with the patient's son. Medical decision making is of high complexity. 40 minutes spent on this patient with more than 50% spent on direct patient care. Will follow.
[2018-09-22] MEDS: QUETIAPINE FUMARATE 25 MG TABLET PO SCH (22:35)
[2018-09-23] MEDS: DILTIAZEM HCL 30 MG TABLET PO SCH ×3 (05:57→21:57)
[2018-09-23 07:06] LABS: HEMATOCRIT 28.7 % (36.0-47.0); HEMOGLOBIN 10.1 g/dL (12.0-15.5); MEAN CORPUSCULAR HEMOGLOBIN 39.3 pg (27.0-33.4); MEAN CORPUSCULAR HGB CONC 35.1 g/dL (32.0-36.0); MEAN CORPUSCULAR VOLUME 112 fl (80-97); PLATELET COUNT 291 10^3/uL (150-450); RED BLOOD COUNT 2.56 10^6/uL (3.72-5.28); RED CELL DISTRIBUTION WIDTH 27.3 % (11.5-14.0); WHITE BLOOD COUNT 1.8 10^3/uL (4.0-10.5)
[2018-09-23 07:18] LABS: ANION GAP 8 (5-19); BLOOD UREA NITROGEN 22 mg/dL (7-20); CARBON DIOXIDE 29 mmol/L (22-30); CHLORIDE 96 mmol/L (98-107); GLUCOSE 96 mg/dL (75-110); POTASSIUM 3.1 mmol/L (3.6-5.0); SODIUM 132.6 mmol/L (137-145)
[2018-09-23 07:30] LABS: ABSOLUTE LYMPHOCYTES# (MANUAL) 0.4 10^3/uL (0.5-4.7); ABSOLUTE MONOCYTES # (MANUAL) 0.1 10^3/uL (0.1-1.4); ABSOLUTE NEUTROPHILS# (MANUAL) 1.3 10^3/uL (1.7-8.2); BAND NEUTROPHILS % (MANUAL) 8 % (3-5); BASOPHILS % (MANUAL) 0 % (0-2); EOSINOPHILS % (MANUAL) 0 % (0-6); LYMPHOCYTES % (MANUAL) 18 % (13-45); MONOCYTES % (MANUAL) 8 % (3-13); SEGMENTED NEUTROPHILS % (MAN) 64 % (42-78); TOTAL CELLS COUNTED 50
[2018-09-23 07:33] LABS: ANISOCYTOSIS 4+; OVALOCYTES 2+; PLATELET COMMENT ADEQUATE; POIKILOCYTOSIS 2+; POLYCHROMASIA SLIGHT; TEAR DROP CELLS SLIGHT
[2018-09-23 07:34] LABS: PLATELET LARGE PRESENT
[2018-09-23] MEDS: APIXABAN 2.5 MG TABLET PO SCH ×2 (10:16→21:57)
[2018-09-23] MEDS: FUROSEMIDE 40 MG TABLET PO SCH (10:16)
[2018-09-23] MEDS: POTASSIUM CHLORIDE 10 MEQ CAPSULE.ER PO SCH (10:16)
[2018-09-23] MEDS: OSELTAMIVIR PHOSPHATE 30 MG CAPSULE PO SCH ×2 (10:17→17:08)
--- NOTE | 2018-09-23 16:28 | PDOC PROGRESS REPORT ---
Subjective Progress Note for:: 09/23/18 Subjective:: Overnight patient was restarted on Cardizem GTT given elevated and persistent Afib w/ RVR. This did help HR. No other issues. This AM patient much more interactive. States that she is feeling "better". Denies pain or breathing complaints. Denies fevers, chills, CP, SOB. States that she like the agustin catheter and would prefer it to stay in place for another day. Eating very well. NO other complaints. Reason For Visit: HEART FAILURE, ATRIAL FIBRILLATION WITH Physical Exam Vital Signs: Temp Pulse Resp BP Pulse Ox 97.8 F 110 H 16 118/64 89 L 09/23/18 11:51 09/23/18 12:00 09/23/18 11:51 09/23/18 12:00 09/23/18 11:52 Intake & Output 09/22/18 09/23/18 09/24/18 06:59 06:59 06:59 Intake Total 1473 337 88 Output Total 724 9875 Balance 748 -1538 88 Weight 72.9 kg 72.3 kg Results Laboratory Results: 09/23/18 06:26 09/23/18 06:26 09/23/18 09/23/18 06:26 06:26 WBC 1.8 L RBC 2.56 L Hgb 10.1 L Hct 28.7 L MCV 112 H MCH 39.3 H MCHC 35.1 RDW 27.3 H Plt Count 291 Seg Neutrophils % Not Reportable Lymphocytes % Not Reportable Monocytes % Not Reportable Eosinophils % Not Reportable Basophils % Not Reportable Absolute Neutrophils Not Reportable Absolute Lymphocytes Not Reportable Absolute Monocytes Not Reportable Absolute Eosinophils Not Reportable Absolute Basophils Not Reportable Sodium 132.6 L Potassium 3.1 L Chloride 96 L Carbon Dioxide 29 Anion Gap 8 BUN 22 H Creatinine 0.49 L Est GFR ( Amer) > 60 Est GFR (Non-Af Amer) > 60 Glucose 96 Calcium 8.0 L 09/20/18 09/20/18 09/20/18 09:46 09:46 09:46 Creatine Kinase Cancelled 38 CK-MB (CK-2) 2.83 Troponin I 0.016 NT-Pro-B Natriuret Pep 6320 H 09/20/18 09/20/18 09/21/18 18:39 18:39 00:58 Creatine Kinase 45 26 L CK-MB (CK-2) 2.42 Troponin I 0.014 NT-Pro-B Natriuret Pep 09/21/18 09/21/18 09/21/18 00:58 08:03 08:03 Creatine Kinase 25 L CK-MB (CK-2) 1.76 1.76 Troponin I 0.024 0.033 NT-Pro-B Natriuret Pep 8390 H Impressions: Chest X-Ray 09/20/18 09:21 IMPRESSION: Small bilateral pleural effusions with bibasilar airspace disease Marked cardiomegaly Assessment & Plan - Diagnosis (1) Atrial fibrillation Qualifiers: Atrial fibrillation type: chronic Qualified Code(s): I48.2 - Chronic atrial fibrillation Is this a current diagnosis for this admission?: Yes Plan: Has Chronic AFib - Was re-started on Cardizem GTT overnight for HR>110 on 09/22 - Improvement in HR today - Goal HR<110 and would be OK to stop GTT - Continue Eliquis (2) Upper respiratory tract infection Qualifiers: URI type: unspecified URI Qualified Code(s): J06.9 - Acute upper respiratory infection, unspecified Is this a current diagnosis for this admission?: Yes Plan: Improved - Reported that pt was flu positive however am not finding this in chart. - Previously on Primaxin, now d/c-ed given clinical improvement - Remains which was placed by her primary physician - Anh has been afebrile, HDS, and no WBC (however given age and history of PCV), she might not mount proper response Plan - COntinue Tamiflu for 5 day course, end date is 09/26 - Encouraged OOO, breathing treatments, and use of incentive spirometry - Wean down O2 as tolerated, goal O2>88% (3) Confusion and disorientation Is this a current diagnosis for this admission?: Yes Plan: Improved on 09/23; likely due to viral infection and hospitalization on top of underlying dementia - Avoid delerium inducing medications (4) Hypoxemia Is this a current diagnosis for this admission?: Yes Plan: Likely multifactorial - Does not have baseline O2 requirement - Continue to wean down as tolerated per above (5) Anemia Qualifiers: Anemia type: iron deficiency Is this a current diagnosis for this admission?: Yes Plan: Patient has history blood disorder - son unclear of diagnosis - Hg has been stable and no indication for transfusion - MCV elevated which could be due to low folate, B12, MDS (6) Leukopenia Is this a current diagnosis for this admission?: Yes Plan: ANC low but stable - CTM - Time Time Spent with patient: Less than 15 minutes Anticipated discharge: Home with Homehealth, SNF Within: within 48 hours
[2018-09-23] MEDS: DILTIAZEM HCL/D5W 125 MG/125 ML RTUINJ IV PRN (16:57)
[2018-09-23] MEDS: POTASSIUM CHLORIDE 20 MEQ/15 ML UDCUP PO SCH (16:57)
--- NOTE | 2018-09-23 19:10 | Progress Note ---
Provider Note Provider Note: CARDIOLOGY PROGRESS NOTE by Dr. Odalys Santiago on 09/23/2018. SUBJECTIVE: The patient is more awake. She denies any cough or serologies shortness of breath. There is no chest pain or discomfort. The patient continues to be in atrial fibrillation. Yesterday she was started on IV Cardizem drip since she had atrial fibrillation with rapid ventricular response although without any hemodynamic compromise, and the patient being asymptomatic. Today her heart rate was much well controlled on IV Cardizem, but when she sat up in bed heart rate went up into the 130s. Is a Cardizem drip was increased to 15 mg/h. At with this has brought the heart rate down to reasonable rates. She denies any PND orthopnea. Shortness of breath is not present at rest. She has no chest pain. There is no bleeding on Eliquis. There is no TIA CVA symptoms. There is no ventricular arrhythmia seen on the monitor. PHYSICAL EXAMINATION: The patient appears to be a frail build. She appears chronically ill looking. She is well-groomed. Selected Entries 09/23/18 11:51 Temperature 97.8 F Temperature Oral Source Pulse Rate 109 H Respiratory 16 Rate Blood Pressure 114/68 Blood Pressure 83 Mean BP Location Left Arm BP Position Supine O2 Sat by Pulse 89 L Oximetry Oxygen Flow 4.00 Rate Oxygen Delivery Nasal Cannula Method HEAD: Is atraumatic normocephalic. EYES: Pupils are equal round regular react to light accommodation. Extraocular movements are normal. There is mild conjunctival pallor. There is no scleral icterus. ENT is negative. Neck is supple there is no JVD carotids are equal there is no bruits. There is no lymphadenopathy. There is no accessory muscle respiration use. Skin: There is a superficial lesions of ulceration throughout the skin. This is due to the patient's history of skin cancer. LUNGS: There is diminished air entry prolonged expiration and scattered rhonchi. There is no wheezing or rales. A few dry crackles in both bases consistent with bibasilar pneumoni. HEART: S1-S2 is heard. S1 is of variable intensity. There is no S3 gallop. There is no S4 gallop. There is systolic murmur left sternal border and the apex there is no rub. ABDOMEN: Is soft. There is no hepatosplenic megaly. Bowel sounds are well heard. EXTREMITIES: Femorals are diminished. There is no femoral bruits. Leg pulses are diminished. There is no pedal edema. There is no DVT or cellulitis. There is no calf tenderness. 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 PSYCHIATRIC: The patient does not appear to be agitated or anxious. 09/23/18 09/23/18 06:26 06:26 WBC 1.8 L RBC 2.56 L Hgb 10.1 L Hct 28.7 L MCV 112 H MCH 39.3 H MCHC 35.1 RDW 27.3 H Plt Count 291 Total Counted 50 Sodium 132.6 L Potassium 3.1 L Chloride 96 L Carbon Dioxide 29 Anion Gap 8 BUN 22 H Creatinine 0.49 L Est GFR (Non-Af Amer) > 60 Glucose 96 Calcium 8.0 L IMPRESSION/RECOMMENDATION: 1. Bibasilar pneumonia: Continue antibiotics. Question influenza pneumonia. I do not see any lab results supporting this. Continue to increase the patient's oxygen, since the patient's O2 sat is 89% on 4 L. 2. Atrial fibrillation with fast ventricular response. The patient has persistent atrial fibrillation. Will increase the patient's IV Cardizem drip. Continue Eliquis. Cautiously in view of the patient's age, frail build, and anemia. 3. Leukopenia: Most likely effect of hydroxyurea. Note hydroxyurea has been stopped. 4. 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 For the time being this has been held. 5. Moderate mitral regurgitation by a echo of March 2018. Physical examination shows that the patient still has some mitral regurgitation. 6. Moderate pulmonary hypertension by echo of 03/2018. Continue current medication. 7. History of skin cancer: At present does not seem to be an active problem. Occasions reviewed. Medications added. Discussed management plan with the attending physicians on the case. Discussed with the patient's son. Medical decision making is of high complexity. 40 minutes spent on this patient with more than 50% spent on direct patient care. Will follow.
[2018-09-23] MEDS: QUETIAPINE FUMARATE 25 MG TABLET PO SCH (21:57)
[2018-09-24] MEDS: DILTIAZEM HCL/D5W 125 MG/125 ML RTUINJ IV PRN ×3 (01:17→16:09)
[2018-09-24] MEDS: DILTIAZEM HCL 30 MG TABLET PO SCH ×3 (06:03→22:19)
[2018-09-24 07:17] LABS: HEMATOCRIT 29.6 % (36.0-47.0); HEMOGLOBIN 10.4 g/dL (12.0-15.5); MEAN CORPUSCULAR HEMOGLOBIN 39.2 pg (27.0-33.4); MEAN CORPUSCULAR HGB CONC 35.1 g/dL (32.0-36.0); MEAN CORPUSCULAR VOLUME 112 fl (80-97); PLATELET COUNT 348 10^3/uL (150-450); RED BLOOD COUNT 2.65 10^6/uL (3.72-5.28); RED CELL DISTRIBUTION WIDTH 26.2 % (11.5-14.0); WHITE BLOOD COUNT 1.9 10^3/uL (4.0-10.5)
[2018-09-24 07:30] LABS: ANION GAP 7 (5-19); BLOOD UREA NITROGEN 20 mg/dL (7-20); CALCIUM 8.1 mg/dL (8.4-10.2); CARBON DIOXIDE 29 mmol/L (22-30); CHLORIDE 95 mmol/L (98-107); GLUCOSE 114 mg/dL (75-110); POTASSIUM 3.8 mmol/L (3.6-5.0); SODIUM 130.5 mmol/L (137-145)
--- NOTE | 2018-09-24 08:20 | PDOC PROGRESS REPORT ---
Subjective Progress Note for:: 09/24/18 Subjective:: The patient looks much better. She is more awake alert oriented. She denies any shortness of breath or palpitations. Her blood pressure is still a little bit on the low side. She has not had a bowel movement. Discussed the rehab. Reason For Visit: HEART FAILURE, ATRIAL FIBRILLATION WITH Physical Exam Vital Signs: Temp Pulse Resp BP Pulse Ox 98.0 F 102 H 24 H 102/58 L 88 L 09/24/18 07:37 09/24/18 08:00 09/24/18 03:31 09/24/18 08:00 09/24/18 07:38 Intake & Output 09/23/18 09/24/18 09/25/18 06:59 06:59 06:59 Intake Total 337 922 Output Total 1875 1100 Balance -1538 -178 Weight 72.3 kg 73.5 kg General appearance: PRESENT: mild distress Head exam: PRESENT: atraumatic Eye exam: PRESENT: conjunctival injection Neck exam: PRESENT: carotid bruit. ABSENT: JVD Respiratory exam: PRESENT: crackles Cardiovascular exam: PRESENT: irregular rhythm, +S1, +S2 GI/Abdominal exam: PRESENT: normal bowel sounds, soft. ABSENT: rebound, rigid, tenderness Extremities exam: PRESENT: pedal edema, tenderness Musculoskeletal exam: PRESENT: tenderness Neurological exam: PRESENT: alert, awake, oriented to place, oriented to time Skin exam: PRESENT: skin tears Results Laboratory Results: 09/24/18 06:36 09/24/18 06:36 Sodium 130.5 L Potassium 3.8 Chloride 95 L Carbon Dioxide 29 Anion Gap 7 BUN 20 Creatinine 0.48 L Est GFR ( Amer) > 60 Est GFR (Non-Af Amer) > 60 Glucose 114 H Calcium 8.1 L Magnesium 1.8 09/20/18 09/20/18 09/20/18 09:46 09:46 09:46 Creatine Kinase Cancelled 38 CK-MB (CK-2) 2.83 Troponin I 0.016 NT-Pro-B Natriuret Pep 6320 H 09/20/18 09/20/18 09/21/18 18:39 18:39 00:58 Creatine Kinase 45 26 L CK-MB (CK-2) 2.42 Troponin I 0.014 NT-Pro-B Natriuret Pep 09/21/18 09/21/18 09/21/18 00:58 08:03 08:03 Creatine Kinase 25 L CK-MB (CK-2) 1.76 1.76 Troponin I 0.024 0.033 NT-Pro-B Natriuret Pep 8390 H Impressions: Chest X-Ray 09/20/18 09:21 IMPRESSION: Small bilateral pleural effusions with bibasilar airspace disease Marked cardiomegaly Assessment & Plan - Diagnosis (1) Upper respiratory tract infection Qualifiers: URI type: unspecified URI Qualified Code(s): J06.9 - Acute upper respiratory infection, unspecified Is this a current diagnosis for this admission?: Yes Plan: Continue current treatment for another 24 hours and then reevaluate (2) Atrial fibrillation Qualifiers: Atrial fibrillation type: chronic Qualified Code(s): I48.2 - Chronic atrial fibrillation Is this a current diagnosis for this admission?: Yes Plan: Still on Cardizem p.o. and IV. We will need to discuss with cardiology if we need a double coverage (3) CHF (congestive heart failure) Qualifiers: Heart failure type: combined systolic and diastolic Heart failure chronicity: chronic Qualified Code(s): I50.42 - Chronic combined systolic (congestive) and diastolic (congestive) heart failure Is this a current diagnosis for this admission?: Yes Plan: Improving we will recheck chest x-ray and labs (4) Hypoxemia Is this a current diagnosis for this admission?: Yes (5) Anemia Qualifiers: Anemia type: iron deficiency Is this a current diagnosis for this admission?: Yes Plan: Stable posttransfusion (6) Polycythemia vera Is this a current diagnosis for this admission?: Yes Plan: Stable continue current treatment (7) DNR (do not resuscitate) Is this a current diagnosis for this admission?: Yes Plan: Continue DNR status (8) Confusion and disorientation Is this a current diagnosis for this admission?: Yes Plan: Possibly secondary to infection. Will add some Seroquel
[2018-09-24] MEDS ORDERED: NA PHOS,M-B/NA PHOS,DI-BA (ADULT) 133 ML ENEMA PR ONE (09:30)
[2018-09-24] MEDS ORDERED: MAGNESIUM CITRATE 296 ML BOTTLE PO ONE (09:30)
--- NOTE | 2018-09-24 09:42 | RADIOLOGY REPORT (SQ) ---
EXAM DESCRIPTION: CHEST SINGLE VIEW COMPLETED DATE/TIME: 09/24/2018 9:17 am REASON FOR STUDY: chf COMPARISON: CT chest 04/25/2018 Chest films 09/20/2018, 04/25/2018, 09/07/2010 EXAM PARAMETERS: NUMBER OF VIEWS: One view. TECHNIQUE: Single frontal radiographic view of the chest acquired. RADIATION DOSE: NA LIMITATIONS: None. FINDINGS: LUNGS AND PLEURA: Small to moderate bilateral pleural effusions are present, similar adriana red to chest films 09/20/2018 accounting for differences in technique. There is bibasilar airspace disease atelectasis versus pneumonia. No pneumothorax. MEDIASTINUM AND HILAR STRUCTURES: No masses. Contour normal. HEART AND VASCULAR STRUCTURES: Marked cardiomegaly, pericardial effusion could not be excluded BONES: No acute findings. HARDWARE: None in the chest. OTHER: No other significant finding. IMPRESSION: Small to moderate bilateral pleural effusions are present Bibasilar airspace disease atelectasis versus pneumonia Cardiomegaly, pericardial effusion could not be excluded TECHNICAL DOCUMENTATION: JOB ID: [id number] [employer]- All Rights Reserved Reading location - IP/workstation name: [email or web address]
[2018-09-24] MEDS: POTASSIUM CHLORIDE 10 MEQ CAPSULE.ER PO SCH (10:20)
[2018-09-24] MEDS: POTASSIUM CHLORIDE 20 MEQ/15 ML UDCUP PO SCH (10:20)
[2018-09-24] MEDS: APIXABAN 2.5 MG TABLET PO SCH ×2 (10:21→22:18)
[2018-09-24] MEDS: OSELTAMIVIR PHOSPHATE 30 MG CAPSULE PO SCH ×2 (10:21→17:30)
[2018-09-24] MEDS: METOPROLOL TARTRATE 50 MG TABLET PO SCH ×2 (15:39→22:18)
--- NOTE | 2018-09-24 20:36 | Progress Note ---
Provider Note Provider Note: CARDIOLOGY PROGRESS NOTE by Dr. Odalys Santiago on 09/24/2018. SUBJECTIVE: The patient states she feels better. She is still on the Cardizem drip at 15 mg/h but the heart rate is well controlled. At home she was on metoprolol. She denies any chest pain or discomfort. There is no shortness of breath. There is no PND orthopnea. There is no ventricular arrhythmia seen on the monitor. The patient denies any cough or sputum production. Discussed with Loc Truong MD, that the patient is on Tamiflu, since her respiratory symptoms of symptoms did not improve with the conventional antibiotics. Hence empirically Tamiflu was added, although no influenza test were done. She has no TIA CVA symptoms. PHYSICAL EXAMINATION: The patient is a frail build. Appears to be chronically ill. She appears to be older than his stated age. But in spite of this she is not in any acute distress. Selected Entries 09/24/18 09/24/18 09/24/18 12:09 12:17 13:00 Temperature 97.1 F Temperature Axillary Source Pulse Rate 95 Respiratory 24 H Rate Blood Pressure 144/73 H 140/75 H Blood Pressure 96 96 Mean BP Location Left Arm BP Position Supine O2 Sat by Pulse 89 L Oximetry Oxygen Flow 2.00 Rate O2 Sat by Pulse 92 Oximetry by Telemetry HEAD: Is atraumatic normocephalic. EYES: Pupils are equal round regular react to light accommodation. Extraocular movements are normal. There is mild conjunctival pallor. There is no scleral icterus. ENT is negative. Neck is supple there is no JVD carotids are equal there is no bruits. There is no lymphadenopathy. There is no accessory muscle respiration use. Skin: There is a superficial lesions of ulceration throughout the skin. This is due to the patient's history of skin cancer. LUNGS: There is diminished air entry prolonged expiration and scattered rhonchi. There is no wheezing or rales. A few dry crackles in both bases consistent with bibasilar pneumoni. HEART: S1-S2 is heard. S1 is of variable intensity. There is no S3 gallop. There is no S4 gallop. There is systolic murmur left sternal border and the apex there is no rub. ABDOMEN: Is soft. There is no hepatosplenic megaly. Bowel sounds are well heard. EXTREMITIES: Femorals are diminished. There is no femoral bruits. Leg pulses are diminished. There is no pedal edema. There is no DVT or cellulitis. There is no calf tenderness. 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 PSYCHIATRIC: The patient does not appear to be agitated or anxious. 09/24/18 09/24/18 06:36 06:36 WBC 1.9 L RBC 2.65 L Hgb 10.4 L Hct 29.6 L MCV 112 H MCH 39.2 H MCHC 35.1 RDW 26.2 H Plt Count 348 Sodium 130.5 L Potassium 3.8 Chloride 95 L Carbon Dioxide 29 Anion Gap 7 BUN 20 Creatinine 0.48 L Est GFR (Non-Af Amer) > 60 Glucose 114 H Calcium 8.1 L Magnesium 1.8 IMPRESSION/RECOMMENDATION: 1. Bibasilar pneumonia: Continue antibiotics. Question influenza pneumonia. I do not see any lab results supporting this. Continue to increase the patient's oxygen, since the patient's O2 sat is 89% on 4 L. 2. Atrial fibrillation with fast ventricular response. The patient has persistent atrial fibrillation. At present the heart rate is controlled with IV Cardizem. We will decrease the patient's Cardizem and the patient's Lopressor 50 mg p.o. every 12 hours. Finally we will taper off the Cardizem drip. 3. Leukopenia: Most likely effect of hydroxyurea. Note hydroxyurea has been stopped. 4. 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 For the time being this has been held. 5. Moderate mitral regurgitation by a echo of March 2018. Physical examination shows that the patient still has some mitral regurgitation. 6. Moderate pulmonary hypertension by echo of 03/2018. Continue current medication. 7. History of skin cancer: At present does not seem to be an active problem. Occasions reviewed. Medications added. Discussed management plan with the attending physicians on the case. Discussed with the patient's son. Medical decision making is of high complexity. 40 minutes spent on this patient with more than 50% spent on direct patient care. Will follow
[2018-09-24] MEDS: QUETIAPINE FUMARATE 25 MG TABLET PO SCH (22:18)
[2018-09-25] MEDS: DILTIAZEM HCL 30 MG TABLET PO SCH ×2 (00:01→06:52)
[2018-09-25 06:35] LABS: HEMATOCRIT 31.2 % (36.0-47.0); HEMOGLOBIN 10.8 g/dL (12.0-15.5); MEAN CORPUSCULAR HGB CONC 34.6 g/dL (32.0-36.0); PLATELET COUNT 420 10^3/uL (150-450); RED BLOOD COUNT 2.77 10^6/uL (3.72-5.28); RED CELL DISTRIBUTION WIDTH 26.4 % (11.5-14.0); WHITE BLOOD COUNT 2.7 10^3/uL (4.0-10.5)
[2018-09-25 06:50] LABS: ALANINE AMINOTRANSFERASE 24 U/L (9-52); ALBUMIN 3.1 g/dL (3.5-5.0); ALKALINE PHOSPHATASE 83 U/L (38-126); ANION GAP 6 (5-19); ASPARTATE AMINO TRANSFERASE 23 U/L (14-36); BILIRUBIN,DIRECT 0.4 mg/dL (0.0-0.4); BILIRUBIN,TOTAL 2.5 mg/dL (0.2-1.3); BLOOD UREA NITROGEN 23 mg/dL (7-20); CALCIUM 8.6 mg/dL (8.4-10.2); CARBON DIOXIDE 32 mmol/L (22-30); CHLORIDE 93 mmol/L (98-107); GLUCOSE 110 mg/dL (75-110); POTASSIUM 4.4 mmol/L (3.6-5.0); SODIUM 131.3 mmol/L (137-145); TOTAL PROTEIN 5.4 g/dL (6.3-8.2)
[2018-09-25 07:01] LABS: MEAN CORPUSCULAR VOLUME 113 fl (80-97)
[2018-09-25 07:09] LABS: ABSOLUTE LYMPHOCYTES# (MANUAL) 0.8 10^3/uL (0.5-4.7); ABSOLUTE MONOCYTES # (MANUAL) 0.3 10^3/uL (0.1-1.4); ABSOLUTE NEUTROPHILS# (MANUAL) 1.6 10^3/uL (1.7-8.2); BASOPHILS % (MANUAL) 2 % (0-2); EOSINOPHILS % (MANUAL) 1 % (0-6); LYMPHOCYTES % (MANUAL) 26 % (13-45); MONOCYTES % (MANUAL) 10 % (3-13); SEGMENTED NEUTROPHILS % (MAN) 58 % (42-78); TOTAL CELLS COUNTED 100
[2018-09-25 07:13] LABS: ANISOCYTOSIS 3+; OVALOCYTES 1+; POIKILOCYTOSIS 2+
[2018-09-25 07:14] LABS: PLATELET COMMENT ADEQUATE; POLYCHROMASIA SLIGHT; TEAR DROP CELLS 1+
--- NOTE | 2018-09-25 08:28 | PDOC PROGRESS REPORT ---
Subjective Progress Note for:: 09/25/18 Subjective:: The patient appears to be doing better. She appears to be more confused. She has tried the max titrate but was nauseous and had some vomiting after taking it. He is passing gas but have not had a bowel movement. Her heart rate is better controlled with combination of Cardizem and metoprolol. Her chest x-ray does not show much improvement but it is stable. Her white count has improved Reason For Visit: HEART FAILURE, ATRIAL FIBRILLATION WITH Physical Exam Vital Signs: Temp Pulse Resp BP Pulse Ox 97.3 F 85 24 H 115/73 90 L 09/25/18 04:21 09/25/18 04:21 09/25/18 04:21 09/25/18 04:21 09/25/18 04:21 Intake & Output 09/24/18 09/25/18 09/26/18 06:59 06:59 06:59 Intake Total 922 672 Output Total 1100 500 Balance -178 172 Weight 73.5 kg 67.6 kg General appearance: PRESENT: mild distress Head exam: PRESENT: atraumatic Neck exam: PRESENT: carotid bruit. ABSENT: JVD Respiratory exam: PRESENT: crackles Cardiovascular exam: PRESENT: irregular rhythm, +S1, +S2 GI/Abdominal exam: PRESENT: hyperactive bowel sounds, soft. ABSENT: guarding Extremities exam: PRESENT: tenderness Musculoskeletal exam: PRESENT: tenderness Neurological exam: PRESENT: awake. ABSENT: oriented to place, oriented to time Psychiatric exam: PRESENT: anxious Results Laboratory Results: 09/25/18 05:57 09/25/18 05:57 09/24/18 09/25/18 09/25/18 06:36 05:57 05:57 WBC 1.9 L 2.7 L RBC 2.65 L 2.77 L Hgb 10.4 L 10.8 L Hct 29.6 L 31.2 L MCV 112 H 113 H MCH 39.2 H 39.0 H MCHC 35.1 34.6 RDW 26.2 H 26.4 H Plt Count 348 420 Seg Neutrophils % Not Reportable Lymphocytes % Not Reportable Monocytes % Not Reportable Eosinophils % Not Reportable Basophils % Not Reportable Absolute Neutrophils Not Reportable Absolute Lymphocytes Not Reportable Absolute Monocytes Not Reportable Absolute Eosinophils Not Reportable Absolute Basophils Not Reportable Sodium 131.3 L Potassium 4.4 Chloride 93 L Carbon Dioxide 32 H Anion Gap 6 BUN 23 H Creatinine 0.52 Est GFR ( Amer) > 60 Est GFR (Non-Af Amer) > 60 Glucose 110 Calcium 8.6 Magnesium 2.1 Total Bilirubin 2.5 H AST 23 ALT 24 Alkaline Phosphatase 83 Total Protein 5.4 L Albumin 3.1 L 09/20/18 09/20/18 09/20/18 09:46 09:46 09:46 Creatine Kinase Cancelled 38 CK-MB (CK-2) 2.83 Troponin I 0.016 NT-Pro-B Natriuret Pep 6320 H 09/20/18 09/20/18 09/21/18 18:39 18:39 00:58 Creatine Kinase 45 26 L CK-MB (CK-2) 2.42 Troponin I 0.014 NT-Pro-B Natriuret Pep 09/21/18 09/21/18 09/21/18 00:58 08:03 08:03 Creatine Kinase 25 L CK-MB (CK-2) 1.76 1.76 Troponin I 0.024 0.033 NT-Pro-B Natriuret Pep 8390 H 09/25/18 05:57 Creatine Kinase CK-MB (CK-2) Troponin I NT-Pro-B Natriuret Pep 5980 H Impressions: Chest X-Ray 09/24/18 00:00 IMPRESSION: Small to moderate bilateral pleural effusions are present Bibasilar airspace disease atelectasis versus pneumonia Cardiomegaly, pericardial effusion could not be excluded Assessment & Plan - Diagnosis (1) Upper respiratory tract infection Qualifiers: URI type: unspecified URI Qualified Code(s): J06.9 - Acute upper resp iratory infection, unspecified Is this a current diagnosis for this admission?: Yes Plan: Continue current treatment for another 24 hours and then reevaluate (2) Atrial fibrillation Qualifiers: Atrial fibrillation type: chronic Qualified Code(s): I48.2 - Chronic atrial fibrillation Is this a current diagnosis for this admission?: Yes Plan: Much improved after the addition of metoprolol (3) CHF (congestive heart failure) Qualifiers: Heart failure type: combined systolic and diastolic Heart failure chronicity: chronic Qualified Code(s): I50.42 - Chronic combined systolic (congestive) and diastolic (congestive) heart failure Is this a current diagnosis for this admission?: Yes Plan: Stable we will continue current treatment (4) Hypoxemia Is this a current diagnosis for this admission?: Yes (5) Anemia Qualifiers: Anemia type: iron deficiency Is this a current diagnosis for this admission?: Yes Plan: Stable posttransfusion (6) Polycythemia vera Is this a current diagnosis for this admission?: Yes Plan: Stable continue current treatment (7) DNR (do not resuscitate) Is this a current diagnosis for this admission?: Yes Plan: Continue DNR status (8) Confusion and disorientation Is this a current diagnosis for this admission?: Yes Plan: Slightly worsened most probably related to sundowning and hospitalization (9) Leukopenia Qualifiers: Neutropenia type: other drug-induced Is this a current diagnosis for this admission?: Yes Plan: Improved with stopping of hydroxyurea
[2018-09-25] MEDS: APIXABAN 2.5 MG TABLET PO SCH ×2 (10:22→21:43)
[2018-09-25] MEDS: OSELTAMIVIR PHOSPHATE 30 MG CAPSULE PO SCH ×2 (10:22→17:36)
[2018-09-25] MEDS: DOCUSATE SODIUM 100 MG CAPSULE PO SCH ×2 (10:22→17:36)
[2018-09-25] MEDS: METOPROLOL TARTRATE 50 MG TABLET PO SCH ×2 (10:22→21:43)
[2018-09-25] MEDS: POTASSIUM CHLORIDE 10 MEQ CAPSULE.ER PO SCH (10:22)
[2018-09-25] MEDS: POLYETHYLENE GLYCOL 3350 POWDER 17 GM/1 PACKET PO SCH (10:23)
[2018-09-25] MEDS ORDERED: DILTIAZEM HCL 30 MG TABLET PO ONE (11:00)
[2018-09-25] MEDS ORDERED: NA PHOS,M-B/NA PHOS,DI-BA (ADULT) 133 ML ENEMA PR ONE ×2 (15:00→18:00)
[2018-09-25] MEDS: DILTIAZEM HCL 60 MG TABLET PO SCH ×2 (15:21→21:43)
[2018-09-25] MEDS: QUETIAPINE FUMARATE 25 MG TABLET PO SCH (21:44)
--- NOTE | 2018-09-25 23:18 | Progress Note ---
Provider Note Provider Note: CARDIOLOGY PROGRESS NOTE by Dr. Odalys Martinez on 09/25/2018. SUBJECTIVE: The patient states she is feeling better. She denies any shortness of breath she is atrial fibrillation, which she is still is in, is better controlled. This is with the addition of Cardizem at 60 mg p.o. every 8 hours. There is no chest pain or discomfort. There is no PND orthopnea. There is no increase in her trace leg edema. There is no bleeding on Eliquis. There is no TIA CVA symptoms. PHYSICAL EXAMINATION: The patient appears to be chronically ill. She is a frail build. But in no acute distress. Selected Entries 09/25/18 09/25/18 08:27 09:00 Temperature 97.2 F Temperature Oral Source Pulse Rate 59 L Heart Rate ( 100 Monitors) Blood Pressure 117/76 Blood Pressure 89 Mean BP Location Left Arm BP Position Sitting O2 Sat by Pulse 91 L Oximetry Oxygen Flow 2.00 Rate Oxygen Delivery Nasal Cannula Method O2 Sat by Pulse 94 Oximetry by Telemetry HEAD: Is atraumatic normocephalic. EYES: Pupils are equal round regular react to light accommodation. Extraocular movements are normal. There is mild conjunctival pallor. There is no scleral icterus. ENT is negative. Neck is supple there is no JVD carotids are equal there is no bruits. There is no lymphadenopathy. There is no accessory muscle respiration use. Skin: There is a superficial lesions of ulceration throughout the skin. This is due to the patient's history of skin cancer. LUNGS: There is diminished air entry prolonged expiration and scattered rhonchi. There is no wheezing or rales. A few dry crackles in both bases consistent with bibasilar pneumoni. HEART: S1-S2 is heard. S1 is of variable intensity. There is no S3 gallop. There is no S4 gallop. There is systolic murmur left sternal border and the apex there is no rub. ABDOMEN: Is soft. There is no hepatosplenic megaly. Bowel sounds are well heard. EXTREMITIES: Femorals are diminished. There is no femoral bruits. Leg pulses are diminished. There is no pedal edema. There is no DVT or cellulitis. There is no calf tenderness. 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 PSYCHIATRIC: The patient does not appear to be agitated or anxious. 09/25/18 09/25/18 09/25/18 05:57 05:57 05:57 WBC 2.7 L RBC 2.77 L Hgb 10.8 L Hct 31.2 L MCV 113 H MCH 39.0 H MCHC 34.6 RDW 26.4 H Plt Count 420 Sodium 131.3 L Potassium 4.4 Chloride 93 L Carbon Dioxide 32 H Anion Gap 6 BUN 23 H Creatinine 0.52 Est GFR (Non-Af Amer) > 60 Glucose 110 Calcium 8.6 Magnesium 2.1 Total Bilirubin 2.5 H Direct Bilirubin 0.4 Neonat Total Bilirubin Not Reportable Neonat Direct Bilirubin Not Reportable Neonat Indirect Bili Not Reportable AST 23 ALT 24 Alkaline Phosphatase 83 NT-Pro-B Natriuret Pep 5980 H Total Protein 5.4 L Albumin 3.1 L MPRESSION/RECOMMENDATION: 1. Bibasilar pneumonia: Continue antibiotics. Question influenza pneumonia. I do not see any lab results supporting this. Continue to increase the patient's oxygen, since the patient's O2 sat is 89% on 4 L. 2. Atrial fibrillation with fast ventricular response. The patient has persistent atrial fibrillation. At present the heart rate is controlled with an increase in her p.o. Cardizem. Will change to a long-acting Cardizem CD preparation. We will also continue the patient's beta-dasha. 3. Leukopenia: Most likely effect of hydroxyurea. Note hydroxyurea has been stopped. 4. 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 For the time being this has been held. 5. Moderate mitral regurgitation by a echo of March 2018. Physical examination shows that the patient still has some mitral regurgitation. 6. Moderate pulmonary hypertension by echo of 03/2018. Continue current medication. 7. History of skin cancer: At present does not seem to be an active problem. Occasions reviewed. Medications added. Discussed management plan with the attending physicians on the case. Discussed with the patient's son. Medical decision making is of high complexity. 40 minutes spent on this patient with more than 50% spent on direct patient care. Will follow.
--- NOTE | 2018-09-26 08:30 | PDOC PROGRESS REPORT ---
Subjective Progress Note for:: 09/26/18 Subjective:: The patient seen on the rounds this morning. She is sitting up in bed comfortably eating breakfast without any complaints. She still appears to be confused but it seems to be improving. Reason For Visit: HEART FAILURE, ATRIAL FIBRILLATION WITH Physical Exam Vital Signs: Temp Pulse Resp BP Pulse Ox 97.0 F 113 H 20 122/62 91 L 09/26/18 03:29 09/26/18 07:00 09/26/18 03:29 09/26/18 03:29 09/26/18 03:29 Intake & Output 09/25/18 09/26/18 09/27/18 06:59 06:59 06:59 Intake Total 672 150 Output Total 500 200 Balance 172 -50 Weight 67.6 kg 76.2 kg General appearance: PRESENT: mild distress Head exam: PRESENT: atraumatic Eye exam: PRESENT: conjunctival injection Neck exam: PRESENT: carotid bruit. ABSENT: JVD Respiratory exam: PRESENT: crackles Cardiovascular exam: PRESENT: irregular rhythm, +S1, +S2 GI/Abdominal exam: PRESENT: normal bowel sounds, soft Extremities exam: PRESENT: tenderness Musculoskeletal exam: PRESENT: tenderness Neurological exam: PRESENT: alert, awake, oriented to person. ABSENT: oriented to place, oriented to time Skin exam: PRESENT: abrasion Results Laboratory Results: 09/25/18 05:57 09/25/18 05:57 09/20/18 09/20/18 09/20/18 09:46 09:46 09:46 Creatine Kinase Cancelled 38 CK-MB (CK-2) 2.83 Troponin I 0.016 NT-Pro-B Natriuret Pep 6320 H 09/20/18 09/20/18 09/21/18 18:39 18:39 00:58 Creatine Kinase 45 26 L CK-MB (CK-2) 2.42 Troponin I 0.014 NT-Pro-B Natriuret Pep 09/21/18 09/21/18 09/21/18 00:58 08:03 08:03 Creatine Kinase 25 L CK-MB (CK-2) 1.76 1.76 Troponin I 0.024 0.033 NT-Pro-B Natriuret Pep 8390 H 09/25/18 05:57 Creatine Kinase CK-MB (CK-2) Troponin I NT-Pro-B Natriuret Pep 5980 H Impressions: Chest X-Ray 09/24/18 00:00 IMPRESSION: Small to moderate bilateral pleural effusions are present Bibasilar airspace disease atelectasis versus pneumonia Cardiomegaly, pericardial effusion could not be excluded Assessment & Plan - Diagnosis (1) Upper respiratory tract infection Qualifiers: URI type: unspecified URI Qualified Code(s): J06.9 - Acute upper respiratory infection, unspecified Is this a current diagnosis for this admission?: Yes Plan: Completed antibiotics and Tamiflu (2) Atrial fibrillation Qualifiers: Atrial fibrillation type: chronic Qualified Code(s): I48.2 - Chronic atrial fibrillation Is this a current diagnosis for this admission?: Yes Plan: Still in rapid A. fib with difficult to control and because of the low blood pressure (3) CHF (congestive heart failure) Qualifiers: Heart failure type: combined systolic and diastolic Heart failure chronicity: chronic Qualified Code(s): I50.42 - Chronic combined systolic (con gestive) and diastolic (congestive) heart failure Is this a current diagnosis for this admission?: Yes Plan: BMP improving but still elevated. Will add Lasix (4) Hypoxemia Is this a current diagnosis for this admission?: Yes Plan: Desaturation with minimal exertion. We will continue with O2 and obtain blood gas (5) Anemia Qualifiers: Anemia type: iron deficiency Is this a current diagnosis for this admission?: Yes Plan: Stable posttransfusion (6) Polycythemia vera Is this a current diagnosis for this admission?: Yes Plan: Stable (7) DNR (do not resuscitate) Is this a current diagnosis for this admission?: Yes Plan: Continue DNR status (8) Confusion and disorientation Is this a current diagnosis for this admission?: Yes Plan: Persists but improving with improving patient's condition (9) Leukopenia Qualifiers: Neutropenia type: other drug-induced Is this a current diagnosis for this admission?: Yes Plan: Improved with stopping the hydroxyurea and improvement in patient's overall status (10) Hyponatremia Is this a current diagnosis for this admission?: Yes Plan: Corrected with fluid restriction (11) Pleural effusion Is this a current diagnosis for this admission?: Yes Plan: Probably combination of rapid A. fib (12) Constipation Is this a current diagnosis for this admission?: Yes Plan: We will continue with laxatives and enemas
[2018-09-26] MEDS ORDERED: NA PHOS,M-B/NA PHOS,DI-BA (ADULT) 133 ML ENEMA PR ONE ×2 (09:00→12:00)
[2018-09-26] MEDS ORDERED: FUROSEMIDE INJ/PF 40 MG/4 ML SDV IV ONE (09:00)
[2018-09-26] MEDS ORDERED: MAGNESIUM CITRATE 296 ML BOTTLE PO ONE (09:00)
[2018-09-26 10:30] LABS: ARTERIAL BLOOD BASE EXCESS 7.8 mmol/L; ARTERIAL BLOOD H2CO3 1.14 mmol/L (1.05-1.35); ARTERIAL BLOOD O2 SATURATION 94.4 % (94-98); ARTERIAL BLOOD PH 7.53 (7.35-7.45); ARTERIAL BLOOD PO2 63.6 mmHg (80-100); ARTERIAL BLOOD TOTAL CO2 32.1 mmol/L (21-25)
[2018-09-26 10:31] LABS: ARTERIAL BLOOD FIO2 2L
[2018-09-26] MEDS: POLYETHYLENE GLYCOL 3350 POWDER 17 GM/1 PACKET PO SCH (10:32)
[2018-09-26] MEDS: POTASSIUM CHLORIDE 10 MEQ CAPSULE.ER PO SCH (11:52)
[2018-09-26] MEDS: DILTIAZEM HCL 120 MG CAP.SR.24H PO SCH ×2 (11:52→21:22)
[2018-09-26] MEDS: DOCUSATE SODIUM 100 MG CAPSULE PO SCH ×2 (11:52→18:27)
[2018-09-26] MEDS: METOPROLOL TARTRATE 50 MG TABLET PO SCH ×2 (11:52→21:23)
[2018-09-26] MEDS: APIXABAN 2.5 MG TABLET PO SCH ×2 (11:53→21:22)
--- NOTE | 2018-09-26 20:25 | Progress Note ---
Provider Note Provider Note: CARDIOLOGY PROGRESS NOTE by Dr. Odalys Santiago on 09/26/2018. SUBJECTIVE: The patient states she feels better, but still has orthopnea and shortness of breath. She denies any cough. There is no chest pain or discomfort. The patient has a red pinpoint rash over the right lower extremity which differential diagnosis is cellulitis versus vasculitis. The patient continues to be in atrial fibrillation. The ventricular response is still not very well controlled in spite of the patient being on beta-dasha and Cardizem. There is no TIA CVA symptoms. There is no bleeding on Eliquis. There is no ventricular arrhythmia seen on the monitor. The patient's son states that she ate only half of her breakfast. PHYSICAL EXAMINATION: The patient is chronically ill appearing. She is a frail build. But in no acute distress. Selected Entries 09/26/18 07:58 Temperature 98.0 F Temperature Oral Source Pulse Rate 103 H Respiratory 22 H Rate Blood Pressure 115/61 Blood Pressure 79 Mean BP Location Left Arm BP Position Supine O2 Sat by Pulse 90 L Oximetry Oxygen Flow 5.00 Rate HEAD: Is atraumatic normocephalic. EYES: Pupils are equal round regular react to light accommodation. Extraocular movements are normal. There is mild conjunctival pallor. There is no scleral icterus. ENT is negative. Neck is supple there is no JVD carotids are equal there is no bruits. There is no lymphadenopathy. There is no accessory muscle respiration use. Skin: There is a superficial lesions of ulceration throughout the skin. This is due to the patient's history of skin cancer. LUNGS: There is diminished air entry prolonged expiration and scattered rhonchi. There is no wheezing or rales. A few dry crackles in both bases consistent with bibasilar pneumoni. HEART: S1-S2 is heard. S1 is of variable intensity. There is no S3 gallop. There is no S4 gallop. There is systolic murmur left sternal border and the apex there is no rub. ABDOMEN: Is soft. There is no hepatosplenic megaly. Bowel sounds are well heard. EXTREMITIES: Femorals are diminished. There is no femoral bruits. Leg pulses are diminished. There is mild bilateral pedal edema. There is redness in the right lower extremity which appears to be pinpoint. This is cellulitis versus vasculitis. There is no DVT There is no calf tenderness. 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 PSYCHIATRIC: The patient does not appear to be agitated or anxious. 09/25/18 09/26/18 09/26/18 05:57 12:32 12:32 ESR 71 H C-Reactive Protein 211.1 H NT-Pro-B Natriuret Pep 5980 H MPRESSION/RECOMMENDATION: 1. Bibasilar pneumonia: Continue antibiotics. Question influenza pneumonia. The patient is off antibiotics, and she has no cough. We will recheck the patient's chest x-ray in the a.m. 2. Atrial fibrillation with fast ventricular response. The patient has persistent atrial fibrillation. At present the heart rate is controlled with an increase in her p.o. Cardizem. Will change to a long-acting Cardizem CD preparation. We will also continue the patient's beta-dasha. We will increase the patient's Cardizem CD.. 3. Leukopenia: Most likely effect of hydroxyurea. Note hydroxyurea has been stopped. 4. 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 For the time being this has been held. 5. Moderate mitral regurgitation by a echo of March 2018. Physical examination shows that the patient still has some mitral regurgitation. 6. Moderate pulmonary hypertension by echo of 03/2018. Continue current medication. 7. History of skin cancer: At present does not seem to be an active problem. 8. Right lower extremity cellulitis versus vasculitis. Note that the patient's sed rate and CRP are very significantly elevated. We will also get a vasculitis workup. Will discuss with Dr. Truong, the attending physician, as to further steps to be taken in the management of this patient. Medications reviewed. Medications added. Discussed management plan with the attending physicians on the case. Discussed with the patient's son. Medical decision making is of high complexity. 40 minutes spent on this patient with more than 50% spent on direct patient care. Will follow.
[2018-09-26] MEDS: QUETIAPINE FUMARATE 25 MG TABLET PO SCH (21:22)
--- NOTE | 2018-09-26 23:13 | RADIOLOGY REPORT (SQ) ---
EXAM DESCRIPTION: XR CHEST 1 VIEW COMPLETED DATE/TME: 09/26/2018 00:00 CLINICAL HISTORY: 88 years Female, Pneumonia COMPARISON: 2 days prior. NUMBER OF VIEWS/TECHNIQUE: 1/AP FINDINGS: Bilateral lower thoracic opacity/effusion. Moderately enlarged cardiac silhouette. No pneumothorax. Stable bony thorax. IMPRESSION: No significant change.
[2018-09-27 06:40] LABS: HEMOGLOBIN 10.3 g/dL (12.0-15.5); MEAN CORPUSCULAR HEMOGLOBIN 38.4 pg (27.0-33.4); MEAN CORPUSCULAR HGB CONC 34.4 g/dL (32.0-36.0); MEAN CORPUSCULAR VOLUME 112 fl (80-97); RED BLOOD COUNT 2.69 10^6/uL (3.72-5.28); RED CELL DISTRIBUTION WIDTH 25.7 % (11.5-14.0); WHITE BLOOD COUNT 2.7 10^3/uL (4.0-10.5)
[2018-09-27 06:57] LABS: ALANINE AMINOTRANSFERASE 30 U/L (9-52); ALBUMIN 2.5 g/dL (3.5-5.0); ALKALINE PHOSPHATASE 75 U/L (38-126); ANION GAP 6 (5-19); ASPARTATE AMINO TRANSFERASE 21 U/L (14-36); BILIRUBIN,DIRECT 0.3 mg/dL (0.0-0.4); BILIRUBIN,TOTAL 1.6 mg/dL (0.2-1.3); BLOOD UREA NITROGEN 29 mg/dL (7-20); CALCIUM 8.1 mg/dL (8.4-10.2); CARBON DIOXIDE 31 mmol/L (22-30); CHLORIDE 95 mmol/L (98-107); GLUCOSE 97 mg/dL (75-110); POTASSIUM 4.7 mmol/L (3.6-5.0); TOTAL PROTEIN 4.7 g/dL (6.3-8.2)
[2018-09-27 07:16] LABS: PLATELET COUNT 572 10^3/uL (150-450)
[2018-09-27 07:21] LABS: ABSOLUTE LYMPHOCYTES# (MANUAL) 0.7 10^3/uL (0.5-4.7); ABSOLUTE MONOCYTES # (MANUAL) 0.2 10^3/uL (0.1-1.4); ABSOLUTE NEUTROPHILS# (MANUAL) 1.8 10^3/uL (1.7-8.2); BAND NEUTROPHILS % (MANUAL) 4 % (3-5); BASOPHILS % (MANUAL) 0 % (0-2); EOSINOPHILS % (MANUAL) 0 % (0-6); LYMPHOCYTES % (MANUAL) 26 % (13-45); MONOCYTES % (MANUAL) 6 % (3-13); SEGMENTED NEUTROPHILS % (MAN) 64 % (42-78); TOTAL CELLS COUNTED 100
[2018-09-27 07:22] LABS: HYPOCHROMASIA 2+; POLYCHROMASIA 2+
[2018-09-27 07:23] LABS: STOMATOCYTES 1+; TEAR DROP CELLS 1+
[2018-09-27 07:24] LABS: PLATELET COMMENT ADEQUATE; PLATELET GIANT PRESENT; PLATELET LARGE PRESENT
[2018-09-27 08:22] LABS: ANISOCYTOSIS 3+
--- NOTE | 2018-09-27 08:34 | PDOC PROGRESS REPORT ---
Subjective Progress Note for:: 09/27/18 Subjective:: The patient appears to be more confused this morning. She is not taking much by mouth. She did have a bowel movement. She has developed erythema of the right leg yesterday. The cardiology has send labs and her CRP and sed rate are elevated. We are probably dealing with vasculitis versus cellulitis. There is an open sore on the right mid leon Reason For Visit: HEART FAILURE, ATRIAL FIBRILLATION WITH Physical Exam Vital Signs: Temp Pulse Resp BP Pulse Ox 98.0 F 112 H 18 107/76 97 09/27/18 04:23 09/27/18 07:00 09/27/18 04:23 09/27/18 04:23 09/27/18 04:23 Intake & Output 09/26/18 09/27/18 09/28/18 06:59 06:59 06:59 Intake Total 150 437 Output Total 200 2450 Weight 76.2 kg 76.4 kg General appearance: PRESENT: severe distress Mouth exam: PRESENT: dry mucosa Neck exam: PRESENT: carotid bruit. ABSENT: JVD Respiratory exam: PRESENT: crackles, rhonchi Cardiovascular exam: PRESENT: irregular rhythm, +S1, +S2 GI/Abdominal exam: PRESENT: normal bowel sounds, soft Extremities exam: PRESENT: pedal edema, other Additional comments: Erythema of the right ankle extending up to mid thigh Neurological exam: PRESENT: awake Results Laboratory Results: 09/27/18 06:12 09/27/18 06:12 09/26/18 09/26/18 09/27/18 10:10 12:32 06:12 WBC 2.7 L RBC 2.69 L Hgb 10.3 L Hct 30.0 L MCV 112 H MCH 38.4 H MCHC 34.4 RDW 25.7 H Plt Count 572 H Seg Neutrophils % Not Reportable Lymphocytes % Not Reportable Monocytes % Not Reportable Eosinophils % Not Reportable Basophils % Not Reportable Absolute Neutrophils Not Reportable Absolute Lymphocytes Not Reportable Absolute Monocytes Not Reportable Absolute Eosinophils Not Reportable Absolute Basophils Not Reportable Carbonic Acid 1.14 HCO3/H2CO3 Ratio 27:1 ABG pH 7.53 H ABG pCO2 38.0 ABG pO2 63.6 L ABG HCO3 31.0 H ABG O2 Saturation 94.4 ABG Base Excess 7.8 FiO2 2L Sodium Potassium Chloride Carbon Dioxide Anion Gap BUN Creatinine Est GFR ( Amer) Est GFR (Non-Af Amer) Glucose Calcium Magnesium Total Bilirubin AST ALT Alkaline Phosphatase C-Reactive Protein 211.1 H Total Protein Albumin 09/27/18 06:12 WBC RBC Hgb Hct MCV MCH MCHC RDW Plt Count Seg Neutrophils % Lymphocytes % Monocytes % Eosinophils % Basophils % Absolute Neutrophils Absolute Lymphocytes Absolute Monocytes Absolute Eosinophils Absolute Basophils Carbonic Acid HCO3/H2CO3 Ratio ABG pH ABG pCO2 ABG pO2 ABG HCO3 ABG O2 Saturation ABG Base Excess FiO2 Sodium 132.0 L Potassium 4.7 Chloride 95 L Carbon Dioxide 31 H Anion Gap 6 BUN 29 H Creatinine 0.47 L Est GFR ( Amer) > 60 Est GFR (Non-Af Amer) > 60 Glucose 97 Calcium 8.1 L Magnesium 2.2 Total Bilirubin 1.6 H AST 21 ALT 30 Alkaline Phosphatase 75 C-Reactive Protein Total Protein 4.7 L Albumin 2.5 L 09/20/18 09/20/18 09/20/18 09:46 09:46 09:46 Creatine Kinase Cancelled 38 CK-MB (CK-2) 2.83 Troponin I 0.016 NT-Pro-B Natriuret Pep 6320 H 09/20/18 09/20/18 09/21/18 18:39 18:39 00:58 Creatine Kinase 45 26 L CK-MB (CK-2) 2.42 Troponin I 0.014 NT-Pro-B Natriuret Pep 09/21/18 09/21/18 09/21/18 00:58 08:03 08:03 Creatine Kinase 25 L CK-MB (CK-2) 1.76 1.76 Troponin I 0.024 0.033 NT-Pro-B Natriuret Pep 8390 H 09/25/18 09/27/18 05:57 06:12 Creatine Kinase CK-MB (CK-2) Troponin I NT-Pro-B Natriuret Pep 5980 H 5550 H Impressions: Chest X-Ray 09/26/18 00:00 IMPRESSION: No significant change. Assessment & Plan - Diagnosis (1) Upper respiratory tract infection Qualifiers: URI type: unspecified URI Qualified Code(s): J06.9 - Acute upper respiratory infection, unspecified Is this a current diagnosis for this admission?: Yes (2) Atrial fibrillation Qualifiers: Atrial fibrillation type: chronic Qualified Code(s): I48.2 - Chronic atrial fibrillation Is this a current diagnosis for this admission?: Yes Plan: Still in rapid A. fib with difficult to control and because of the low blood pressure (3) CHF (congestive heart failure) Qualifiers: Heart failure type: combined systolic and diastolic Heart failure chronicity: chronic Qualified Code(s): I50.42 - Chronic combined systolic (congestive) and diastolic (congestive) heart failure Is this a current diagnosis for this admission?: Yes Plan: Improved we will continue with diuretics (4) Hypoxemia Is this a current diagnosis for this admission?: Yes Plan: Blood gas on 2 L shows PO2 of 65 (5) Anemia Qualifiers: Anemia type: iron deficiency Is this a current diagnosis for this admission?: Yes (6) Polycythemia vera Is this a current diagnosis for this admission?: Yes Plan: Stable (7) DNR (do not resuscitate) Is this a current diagnosis for this admission?: Yes Plan: Continue DNR status (8) Confusion and disorientation Is this a current diagnosis for this admission?: Yes Plan: Persists but improving with improving patient's condition (9) Leukopenia Qualifiers: Neutropenia type: other drug-induced Is this a current diagnosis for this admission?: Yes Plan: Improved with stopping the hydroxyurea and improvement in patient's overall status (10) Hyponatremia Is this a current diagnosis for this admission?: Yes (11) Pleural effusion Is this a current diagnosis for this admission?: Yes Plan: Probably combination of rapid A. fib (12) Constipation Is this a current diagnosis for this admission?: Yes Plan: Improved with laxatives and enemas (13) Cellulitis Qualifiers: Site of cellulitis: extremity Site of cellulitis of extremity: lower extremity Laterality: right Qualified Code(s): L03.115 - Cellulitis of right lower limb Is this a current diagnosis for this admission?: Yes Plan: We will start Ancef IV (14) Vasculitis Is this a current diagnosis for this admission?: Yes Plan: CRP elevated and sed rate. We will start IV steroids.
[2018-09-27] MEDS: METHYLPREDNISOLONE INJ 40 MG/1 ML SDV IV SCH ×3 (12:05→23:07)
[2018-09-27] MEDS: DOCUSATE SODIUM 100 MG CAPSULE PO SCH ×2 (12:06→18:53)
[2018-09-27] MEDS: DILTIAZEM HCL 120 MG CAP.SR.24H PO SCH ×2 (12:06→21:58)
[2018-09-27] MEDS: METOPROLOL TARTRATE 50 MG TABLET PO SCH ×2 (12:07→21:58)
[2018-09-27] MEDS: CEFAZOLIN 1 GM/D5W RTU 1 GM/50 ML RTUPB IV SCH ×3 (12:09→23:08)
[2018-09-27] MEDS: APIXABAN 2.5 MG TABLET PO SCH ×2 (12:10→21:57)
[2018-09-27] MEDS: POTASSIUM CHLORIDE 10 MEQ CAPSULE.ER PO SCH (12:24)
[2018-09-27] MEDS: FUROSEMIDE 40 MG TABLET PO SCH (12:41)
[2018-09-27] MEDS: POLYETHYLENE GLYCOL 3350 POWDER 17 GM/1 PACKET PO SCH (12:42)
--- NOTE | 2018-09-27 20:05 | Progress Note ---
Provider Note Provider Note: CARDIOLOGY PROGRESS NOTE by Dr. Odalys Santiago. SUBJECTIVE: The heart rate seems to be improved. Patient denies any chest pain or discomfort. His shortness of breath is almost resolved. There is no bleeding on Eliquis. There is no ventricular arrhythmias. The patient remains in atrial fibrillation. Rate at times is fast but not too fast. She has redness of the right lower extremity the differential diagnosis would be infection versus vasculitis. Her sed rate and CRP is significantly elevated. There is no TIA CVA symptoms. There is no bleeding on Eliquis. The patient has no PND. She does have some degree of orthopnea. There is no syncope. Selected Entries 09/27/18 09/27/18 09/27/18 07:08 08:00 09:00 Temperature 97.4 F Temperature Source Pulse Rate Heart Rate ( 101 95 Monitors) Respiratory Rate Blood Pressure Blood Pressure Mean BP Location BP Position O2 Sat by Pulse Oximetry Oxygen Flow Rate 09/27/18 11:44 Temperature 97.9 F Temperature Oral Source Pulse Rate 78 Heart Rate ( Monitors) Respiratory 16 Rate Blood Pressure 113/63 Blood Pressure 79 Mean BP Location Left Arm BP Position Supine O2 Sat by Pulse 95 Oximetry Oxygen Flow 4.00 Rate HEAD: Is atraumatic normocephalic. EYES: Pupils are equal round regular react to light accommodation. Extraocular movements are normal. There is mild conjunctival pallor. There is no scleral icterus. ENT is negative. Neck is supple there is no JVD carotids are equal there is no bruits. There is no lymphadenopathy. There is no accessory muscle respiration use. Skin: There is a superficial lesions of ulceration throughout the skin. This is due to the patient's history of skin cancer. LUNGS: There is diminished air entry prolonged expiration and scattered rhonchi. There is no wheezing or rales. A few dry crackles in both bases consistent with bibasilar pneumoni. HEART: S1-S2 is heard. S1 is of variable intensity. There is no S3 gallop. There is no S4 gallop. There is systolic murmur left sternal border and the apex there is no rub. ABDOMEN: Is soft. There is no hepatosplenic megaly. Bowel sounds are well heard. EXTREMITIES: Femorals are diminished. There is no femoral bruits. Leg pulses are diminished. There is mild bilateral pedal edema. There is redness in the right lower extremity which appears to be pinpoint. This is cellulitis versus vasculitis. There is no DVT There is no calf tenderness. 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 PSYCHIATRIC: The patient does not appear to be agitated or anxious. Labs- All tests 24 hr 09/27/18 09/27/18 06:12 06:12 LILLI (Multiplex) Negative Complement C3 120 Complement C4 26 Tot Complement (CH50) 60 Chest X-Ray 09/20/18 09:21 IMPRESSION: Small bilateral pleural effusions with bibasilar airspace disease Marked cardiomegaly Chest X-Ray 09/24/18 00:00 IMPRESSION: Small to moderate bilateral pleural effusions are present Bibasilar airspace disease atelectasis versus pneumonia Cardiomegaly, pericardial effusion could not be excluded Chest X-Ray 09/26/18 00:00 IMPRESSION: No significant change. IMPRESSION/RECOMMENDATION: 1. Bibasilar pneumonia: Continue antibiotics. Question influenza pneumonia. The patient is off antibiotics, and she has no cough. We will recheck the patient's chest x-ray in the a.m. 2. Atrial fibrillation with fast ventricular response. The patient has persistent atrial fibrillation. At present the heart rate is controlled with an increase in her p.o. Cardizem. Will change to a long-acting Cardizem CD preparation. We will also continue the patient's beta-dasha. We will increase the patient's Cardizem CD.. 3. Leukopenia: Most likely effect of hydroxyurea. Note hydroxyurea has been stopped. 4. 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 For the time being this has been held. 5. Moderate mitral regurgitation by a echo of March 2018. Physical examination shows that the patient still has some mitral regurgitation. 6. Moderate pulmonary hypertension by echo of 03/2018. Continue current medication. 7. History of skin cancer: At present does not seem to be an active problem. 8. Right lower extremity cellulitis versus vasculitis. Note that the patient's sed rate and CRP are very significantly elevated. We will also get a vasculitis workup. Will discuss with Dr. Truong, the attending physician, as to further steps to be taken in the management of this patient. Medications reviewed. Medications added. Discussed management plan with the attending physicians on the case. Discussed with the patient's son. Medical decision making is of high complexity. 40 minutes spent on this patient with more than 50% spent on direct patient care. Will follow.
[2018-09-27] MEDS: QUETIAPINE FUMARATE 25 MG TABLET PO SCH (21:57)
[2018-09-28] MEDS: METHYLPREDNISOLONE INJ 40 MG/1 ML SDV IV SCH ×4 (05:14→23:06)
[2018-09-28] MEDS: CEFAZOLIN 1 GM/D5W RTU 1 GM/50 ML RTUPB IV SCH ×4 (05:14→23:06)
[2018-09-28 06:39] LABS: COMPLEMENT C3 120 mg/dL (82-167); COMPLEMENT C4 26 mg/dL (14-44)
[2018-09-28 07:58] LABS: COMPLEMENT TOTAL (CH50) 60 U/mL (>41)
--- NOTE | 2018-09-28 08:23 | PDOC PROGRESS REPORT ---
Subjective Progress Note for:: 09/28/18 Subjective:: The patient is more awake alert and oriented this morning. She is sitting up in the bed having breakfast. Her leg right side seemed to be doing better. She is now complaining of some dry throat with difficulty swallowing. She is not eating very well. Reason For Visit: HEART FAILURE, ATRIAL FIBRILLATION WITH Physical Exam Vital Signs: Temp Pulse Resp BP Pulse Ox 97.8 F 93 16 103/73 98 09/27/18 23:17 09/28/18 07:00 09/28/18 03:19 09/28/18 03:19 09/28/18 03:19 Intake & Output 09/27/18 09/28/18 09/29/18 06:59 06:59 06:59 Intake Total 437 300 Output Total 2450 860 Balance -2012 Weight 76.4 kg 66 kg General appearance: PRESENT: mild distress Head exam: PRESENT: atraumatic Eye exam: PRESENT: conjunctival injection Mouth exam: PRESENT: dry mucosa Neck exam: PRESENT: carotid bruit. ABSENT: JVD Respiratory exam: PRESENT: crackles Cardiovascular exam: PRESENT: irregular rhythm, +S1, +S2 GI/Abdominal exam: PRESENT: normal bowel sounds, soft Extremities exam: PRESENT: pedal edema Musculoskeletal exam: PRESENT: tenderness Skin exam: PRESENT: erythema, skin tears Results Laboratory Results: 09/27/18 06:12 09/27/18 06:12 09/27/18 06:12 MCV 112 H 09/20/18 09/20/18 09/20/18 09:46 09:46 09:46 Creatine Kinase Cancelled 38 CK-MB (CK-2) 2.83 Troponin I 0.016 NT-Pro-B Natriuret Pep 6320 H 09/20/18 09/20/18 09/21/18 18:39 18:39 00:58 Creatine Kinase 45 26 L CK-MB (CK-2) 2.42 Troponin I 0.014 NT-Pro-B Natriuret Pep 09/21/18 09/21/18 09/21/18 00:58 08:03 08:03 Creatine Kinase 25 L CK-MB (CK-2) 1.76 1.76 Troponin I 0.024 0.033 NT-Pro-B Natriuret Pep 8390 H 09/25/18 09/27/18 05:57 06:12 Creatine Kinase CK-MB (CK-2) Troponin I NT-Pro-B Natriuret Pep 5980 H 5550 H Impressions: Chest X-Ray 09/26/18 00:00 IMPRESSION: No significant change. Assessment & Plan - Diagnosis (1) Upper respiratory tract infection Qualifiers: URI type: unspecified URI Qualified Code(s): J06.9 - Acute upper respiratory infection, unspecified Is this a current diagnosis for this admission?: Yes Plan: Improved continue current treatment (2) Atrial fibrillation Qualifiers: Atrial fibrillation type: chronic Qualified Code(s): I48.2 - Chronic atrial fibrillation Is this a current diagnosis for this admission?: Yes Plan: Stable continue current treatment (3) CHF (congestive heart failure) Qualifiers: Heart failure type: combined systolic and diastolic Heart failure chronicity: chronic Qualified Code(s): I50.42 - Chronic combined systolic (congestive) and diastolic (congestive) heart failure Is this a current diagnosis for this admission?: Yes Plan: Improved we will continue with diuretics (4) Hypoxemia Is this a current diagnosis for this admission?: Yes (5) Anemia Qualifiers: Anemia type: iron deficiency Is this a current diagnosis for this admission?: Yes (6) Polycythemia vera Is this a current diagnosis for this admission?: Yes Plan: Stable continue current treatment (7) DNR (do not resuscitate) Is this a current diagnosis for this admission?: Yes Plan: Continue DNR status (8) Confusion and disorientation Is this a current diagnosis for this admission?: Yes Plan: Persists but improving with improving patient's condition (9) Leukopenia Qualifiers: Neutropenia type: other drug-induced Is this a current diagnosis for this admission?: Yes Plan: Improved with stopping the hydroxyurea and improvement in patient's overall status (10) Hyponatremia Is this a current diagnosis for this admission?: Yes (11) Pleural effusion Is this a current diagnosis for this admission?: Yes (12) Constipation Is this a current diagnosis for this admission?: Yes Plan: We will add lactulose (13) Cellulitis Qualifiers: Site of cellulitis: extremity Site of cellulitis of extremity: lower extremity Laterality: right Qualified Code(s): L03.115 - Cellulitis of right lower limb Is this a current diagnosis for this admission?: Yes Plan: We will start Ancef IV (14) Vasculitis Is this a current diagnosis for this admission?: Yes Plan: Improved of the right lower extremity we will continue with steroids
[2018-09-28] MEDS: DILTIAZEM HCL 120 MG CAP.SR.24H PO SCH (09:25)
[2018-09-28] MEDS: DOCUSATE SODIUM 100 MG CAPSULE PO SCH ×2 (11:20→18:22)
[2018-09-28] MEDS: APIXABAN 2.5 MG TABLET PO SCH ×2 (11:21→21:23)
[2018-09-28] MEDS: METOPROLOL TARTRATE 50 MG TABLET PO SCH ×2 (11:22→21:23)
[2018-09-28] MEDS: LACTULOSE SYRUP 20 GM/30 ML UDCUP PO SCH ×3 (11:23→18:22)
[2018-09-28] MEDS: POTASSIUM CHLORIDE 10 MEQ CAPSULE.ER PO SCH (11:25)
[2018-09-28] MEDS: NYSTATIN/DEXAMETH/DIPHEN SUSP 120 ML PO SCH ×4 (11:29→21:24)
[2018-09-28] MEDS: POLYETHYLENE GLYCOL 3350 POWDER 17 GM/1 PACKET PO SCH (11:30)
[2018-09-28] MEDS: FUROSEMIDE 40 MG TABLET PO SCH (11:31)
--- NOTE | 2018-09-28 18:46 | Progress Note ---
Provider Note Provider Note: CARDIOLOGY PROGRESS NOTE by Dr. Odalys Santiago on 09/28/2018. Next SUBJECTIVE: The patient feels much better. She denies any shortness of breath. She does have orthopnea. Her right leg redness has much improved with steroids and antibiotics. Most likely this is vasculitis. Results of vasculitis blood workup tests are awaited. There is no bleeding on Eliquis. There is no TIA CVA symptoms. The patient has no chest pain. PHYSICAL EXAMINATION: The patient appears to be chronically ill she is a frail build. At present in no acute distress, but is well-groomed. Selected Entries 09/28/18 09/28/18 10:00 11:42 Temperature 97.3 F Temperature Axillary Source Pulse Rate 104 H Respiratory 18 Rate Blood Pressure 107/60 Blood Pressure 75 Mean BP Location Left Arm BP Position Supine O2 Sat by Pulse 91 L Oximetry Oxygen Delivery Nasal Cannula Method ( includes room air) Oxygen Flow 4 Rate Oxygen Delivery Nasal Cannula Method HEAD: Is atraumatic normocephalic. EYES: Pupils are equal round regular react to light accommodation. Extraocular movements are normal. There is mild conjunctival pallor. There is no scleral icterus. ENT is negative. Neck is supple there is no JVD carotids are equal there is no bruits. There is no lymphadenopathy. There is no accessory muscle respiration use. Skin: There is a superficial lesions of ulceration throughout the skin. This is due to the patient's history of skin cancer. LUNGS: There is diminished air entry prolonged expiration and scattered rhonchi. There is no wheezing or rales. A few dry crackles in both bases consistent with bibasilar pneumoni. HEART: S1-S2 is heard. S1 is of variable intensity. There is no S3 gallop. There is no S4 gallop. There is systolic murmur left sternal border and the apex there is no rub. ABDOMEN: Is soft. There is no hepatosplenic megaly. Bowel sounds are well heard. EXTREMITIES: Femorals are diminished. There is no femoral bruits. Leg pulses are diminished. There is mild bilateral pedal edema. There is redness in the right lower extremity which appears to be pinpoint. This is cellulitis versus vasculitis. There is no DVT There is no calf tenderness. 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 PSYCHIATRIC: The patient does not appear to be agitated or anxious. 09/27/18 09/27/18 06:12 06:12 NT-Pro-B Natriuret Pep 5550 H Total Protein 4.7 L Albumin 2.5 L Chest X-Ray 09/20/18 09:21 IMPRESSION: Small bilateral pleural effusions with bibasilar airspace disease Marked cardiomegaly Chest X-Ray 09/24/18 00:00 IMPRESSION: Small to moderate bilateral pleural effusions are present Bibasilar airspace disease atelectasis versus pneumonia Cardiomegaly, pericardial effusion could not be excluded Chest X-Ray 09/26/18 00:00 IMPRESSION: No significant change. IMPRESSION/RECOMMENDATION: 1. Bibasilar pneumonia: Continue antibiotics. Question influenza pneumonia. The patient is off antibiotics, and she has no cough. We will recheck the patient's chest x-ray in the a.m. 2. Atrial fibrillation with fast ventricular response. The patient has persistent atrial fibrillation. At present the heart rate is controlled with an increase in her p.o. Cardizem. Will change to a long-acting Cardizem CD preparation. We will also continue the patient's beta-dasha. We will inc rease the patient's Cardizem CD.. 3. Leukopenia: Most likely effect of hydroxyurea. Note hydroxyurea has been stopped. 4. 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 For the time being t his has been held. 5. Moderate mitral regurgitation by a echo of March 2018. Physical examination shows that the patient still has some mitral regurgitation. 6. Moderate pulmonary hypertension by echo of 03/2018. Continue current medication. 7. History of skin cancer: At present does not seem to be an active problem. 8. Right lower extremity cellulitis versus vasculitis. Note that the patient's sed rate and CRP are very significantly elevated. We will also get a vasculitis workup. Will discuss with Dr. Truong, the attending physician, as to further steps to be taken in the management of this patient. Medications reviewed. Medications added. Discussed management plan with the attending physicians on the case. Discussed with the patient's son. Medical decision making is of high complexity. 40 minutes spent on this patient with more than 50% spent on direct patient care. Will follow.
[2018-09-28] MEDS: QUETIAPINE FUMARATE 25 MG TABLET PO SCH (21:23)
[2018-09-28] MEDS: DILTIAZEM HCL 180 MG CAPSULE.CR PO SCH (21:24)
[2018-09-28] MEDS ORDERED: DILTIAZEM HCL 120 MG CAP.SR.24H PO SCH (22:00)
[2018-09-29] MEDS: CEFAZOLIN 1 GM/D5W RTU 1 GM/50 ML RTUPB IV SCH ×4 (05:20→23:15)
[2018-09-29] MEDS: METHYLPREDNISOLONE INJ 40 MG/1 ML SDV IV SCH ×4 (05:20→23:14)
[2018-09-29 05:37] LABS: ABSOLUTE LYMPHOCYTES (AUTO) 1.4 10^3/uL (0.5-4.7); ABSOLUTE MONOCYTES (AUTO) 0.3 10^3/uL (0.1-1.4); ABSOLUTE NEUT (AUTO) 2.6 10^3/uL (1.7-8.2); BASOPHILS % (AUTO) 0.8 % (0-2); EOSINOPHILS % (AUTO) 0.1 % (0-6); HEMATOCRIT 31.9 % (36.0-47.0); HEMOGLOBIN 10.9 g/dL (12.0-15.5); MEAN CORPUSCULAR HEMOGLOBIN 37.8 pg (27.0-33.4); MEAN CORPUSCULAR HGB CONC 34.1 g/dL (32.0-36.0); MEAN CORPUSCULAR VOLUME 111 fl (80-97); MONOCYTES % (AUTO) 6.1 % (3-13); PLATELET COUNT 886 10^3/uL (150-450); RED BLOOD COUNT 2.88 10^6/uL (3.72-5.28); RED CELL DISTRIBUTION WIDTH 25.4 % (11.5-14.0); TOTAL CELLS COUNTED % (AUTO) 100 %; WHITE BLOOD COUNT 4.3 10^3/uL (4.0-10.5)
[2018-09-29 05:59] LABS: ANION GAP 10 (5-19); BLOOD UREA NITROGEN 39 mg/dL (7-20); CALCIUM 8.8 mg/dL (8.4-10.2); CARBON DIOXIDE 27 mmol/L (22-30); CHLORIDE 94 mmol/L (98-107); GLUCOSE 149 mg/dL (75-110); POTASSIUM 5.3 mmol/L (3.6-5.0); SODIUM 130.7 mmol/L (137-145)
[2018-09-29 06:42] LABS: ANISOCYTOSIS 3+; HYPOCHROMASIA 1+; POLYCHROMASIA 1+; TEAR DROP CELLS 1+
[2018-09-29 06:43] LABS: PLATELET COMMENT INCREASED
[2018-09-29] MEDS: POTASSIUM CHLORIDE 10 MEQ CAPSULE.ER PO SCH (09:05)
[2018-09-29] MEDS: METOPROLOL TARTRATE 50 MG TABLET PO SCH ×2 (09:09→21:18)
[2018-09-29] MEDS: APIXABAN 2.5 MG TABLET PO SCH ×2 (09:09→21:18)
[2018-09-29] MEDS: DOCUSATE SODIUM 100 MG CAPSULE PO SCH ×2 (09:09→17:37)
[2018-09-29] MEDS: DILTIAZEM HCL 180 MG CAPSULE.CR PO SCH ×2 (09:10→21:17)
[2018-09-29] MEDS: FUROSEMIDE 40 MG TABLET PO SCH (09:10)
[2018-09-29] MEDS: LACTULOSE SYRUP 20 GM/30 ML UDCUP PO SCH ×3 (09:11→17:37)
[2018-09-29] MEDS: NYSTATIN/DEXAMETH/DIPHEN SUSP 120 ML PO SCH ×5 (09:12→21:21)
[2018-09-29] MEDS: POLYETHYLENE GLYCOL 3350 POWDER 17 GM/1 PACKET PO SCH (09:12)
--- NOTE | 2018-09-29 13:23 | Progress Note ---
Provider Note Provider Note: CARDIOLOGY PROGRESS NOTE by Dr. Odalys Santiago on 09/29/2018. SUBJECTIVE: The patient denies any chest pain or discomfort. She still has orthopnea. But no PND. Her right leg redness is much improved. There is no TIA CVA symptoms. She remains in atrial fibrillation with controlled ventricular response on beta-dasha and Cardizem. There is no arrhythmias seen on the monitor. PHYSICAL EXAMINATION: The patient appears to be mildly overweight. She appears to be chronically ill. In no acute distress. She is well-groomed Selected Entries 09/29/18 11:36 Temperature 97.4 F Temperature Axillary Source Pulse Rate 70 Respiratory 17 Rate Blood Pressure 128/84 H Blood Pressure 98 Mean BP Location Right Arm BP Position Supine O2 Sat by Pulse 89 L Oximetry Oxygen Flow 4.00 Rate HEAD: Is atraumatic normocephalic. EYES: Pupils are equal round regular react to light accommodation. Extraocular movements are normal. There is mild conjunctival pallor. There is no scleral icterus. ENT is negative. Neck is supple there is no JVD carotids are equal there is no bruits. There is no lymphadenopathy. There is no accessory muscle respiration use. Skin: There is a superficial lesions of ulceration throughout the skin. This is due to the patient's history of skin cancer. LUNGS: There is diminished air entry prolonged expiration and scattered rhonchi. There is no wheezing or rales. A few dry crackles in both bases consistent with bibasilar pneumoni. HEART: S1-S2 is heard. S1 is of variable intensity. There is no S3 gallop. There is no S4 gallop. There is systolic murmur left sternal border and the apex there is no rub. ABDOMEN: Is soft. There is no hepatosplenic megaly. Bowel sounds are well heard. EXTREMITIES: Femorals are diminished. There is no femoral bruits. Leg pulses are diminished. There is mild bilateral pedal edema. There is r edness in the right lower extremity which appears to be pinpoint. This is cellulitis versus vasculitis. There is no DVT There is no calf tenderness. 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 PSYCHIATRIC: The patient does not appear to be agitated or anxious. 09/27/18 09/27/18 09/29/18 06:12 06:12 05:19 WBC 4.3 RBC 2.88 L Hgb 10.9 L Hct 31.9 L MCV 111 H MCH 37.8 H MCHC 34.1 RDW 25.4 H Plt Count 886 H Sodium Potassium Chloride Carbon Dioxide Anion Gap BUN Creatinine Est GFR (Non-Af Amer) Glucose Calcium NT-Pro-B Natriuret Pep 5550 H Complement C3 120 Complement C4 26 Complement C5 Pending Tot Complement (CH50) 60 09/29/18 05:19 WBC RBC Hgb Hct MCV MCH MCHC RDW Plt Count Sodium 130.7 L Potassium 5.3 H Chloride 94 L Carbon Dioxide 27 Anion Gap 10 BUN 39 H Creatinine 0.54 Est GFR (Non-Af Amer) > 60 Glucose 149 H Calcium 8.8 NT-Pro-B Natriuret Pep Complement C3 Complement C4 Complement C5 Tot Complement (CH50) IMPRESSION/RECOMMENDATION: 1. Bibasilar pneumonia: Continue antibiotics. Question influenza pneumonia. The patient is off antibiotics, and she has no cough. We will recheck the patient's chest x-ray in the a.m. 2. Atrial fibrillation with fast ventricular response. The patient has persistent atrial fibrillation. At present the heart rate is controlled with an increase in her p.o. Cardizem. Will change to a long-acting Cardizem CD preparation. We will also continue the patient's beta-dasha. We will increase the patient's Cardizem CD.. 3. Leukopenia: Most likely effect of hydroxyurea. Note hydroxyurea has been stopped. 4. 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 For the time being this has been held. 5. Moderate mitral regurgitation by a echo of March 2018. Physical examination shows that the patient still has some mitral regurgitation. 6. Moderate pulmonary hypertension by echo of 03/2018. Continue current medication. 7. History of skin cancer: At present does not seem to be an active problem. 8. Right lower extremity cellulitis versus vasculitis. Note that the patient's sed rate and CRP are very significantly elevated. We will also get a vasculitis workup. Will discuss with Dr. Truong, the attending physician, as to further steps to be taken in the management of this patient. Medications reviewed. Medications added. Discussed management plan with the attending physicians on the case. Discussed with the patient's son. Medical decision making is of high complexity. 40 minutes spent on this patient with more than 50% spent on direct patient care. Will follow.
--- NOTE | 2018-09-29 17:33 | PDOC PROGRESS REPORT ---
Subjective Progress Note for:: 09/29/18 Subjective:: No adverse events overnight. No new complaints. Vital signs been stable. She is afebrile. Her main complaint today is that she is been on a liquid diet would like to eat real food, she says she is hungry and would like to have a real meal. Reason For Visit: HEART FAILURE, ATRIAL FIBRILLATION WITH Physical Exam Vital Signs: Temp Pulse Resp BP Pulse Ox 97.5 F 81 20 116/74 93 09/29/18 16:00 09/29/18 16:00 09/29/18 16:00 09/29/18 16:00 09/29/18 16:00 Intake & Output 09/28/18 09/29/18 09/30/18 06:59 06:59 06:59 Intake Total 300 1563 250 Output Total 860 525 200 Balance -560 1038 50 Weight 66 kg 75.5 kg General appearance: PRESENT: no acute distress, cooperative, disheveled, obese Eye exam: PRESENT: conjunctival injection Respiratory exam: PRESENT: clear to auscultation nessa, symmetrical, unlabored. ABSENT: accessory muscle use, crackles, prolonged expiratory phas, rhonchi, tachypnea, wheezes Cardiovascular exam: PRESENT: irregular rhythm Pulses: PRESENT: normal carotid pulses Vascular exam: PRESENT: normal capillary refill GI/Abdominal exam: PRESENT: normal bowel sounds, soft. ABSENT: distended, guarding, rebound, tenderness Extremities exam: PRESENT: pedal edema - Right foot, +2 edema - Right leg distal to the knee, with erythema and petechia. ABSENT: clubbing Musculoskeletal exam: PRESENT: normal inspection. ABSENT: deformity Neurological exam: PRESENT: alert, awake, oriented to person, oriented to place, oriented to time, oriented to situation Psychiatric exam: PRESENT: appropriate affect, normal mood Skin exam: PRESENT: dry, petechiae - Right lower extremity distal to the knee, rash - She has numerous lesions on face, neck, and upper extremities look like actinic keratoses., warm Results Laboratory Results: 09/29/18 05:19 09/29/18 05:19 09/29/18 09/29/18 05:19 05:19 WBC 4.3 RBC 2.88 L Hgb 10.9 L Hct 31.9 L MCV 111 H MCH 37.8 H MCHC 34.1 RDW 25.4 H Plt Count 886 H Seg Neutrophils % 60.0 Lymphocytes % 33.0 Monocytes % 6.1 Eosinophils % 0.1 Basophils % 0.8 Absolute Neutrophils 2.6 Absolute Lymphocytes 1.4 Absolute Monocytes 0.3 Absolute Eosinophils 0.0 Absolute Basophils 0.0 Sodium 130.7 L Potassium 5.3 H Chloride 94 L Carbon Dioxide 27 Anion Gap 10 BUN 39 H Creatinine 0.54 Est GFR ( Amer) > 60 Est GFR (Non-Af Amer) > 60 Glucose 149 H Calcium 8.8 09/20/18 09/20/18 09/20/18 09:46 09:46 09:46 Creatine Kinase Cancelled 38 CK-MB (CK-2) 2.83 Troponin I 0.016 NT-Pro-B Natriuret Pep 6320 H 09/20/18 09/20/18 09/21/18 18:39 18:39 00:58 Creatine Kinase 45 26 L CK-MB (CK-2) 2.42 Troponin I 0.014 NT-Pro-B Natriuret Pep 09/21/18 09/21/18 09/21/18 00:58 08:03 08:03 Creatine Kinase 25 L CK-MB (CK-2) 1.76 1.76 Troponin I 0.024 0.033 NT-Pro-B Natriuret Pep 8390 H 09/25/18 09/27/18 05:57 06:12 Creatine Kinase CK-MB (CK-2) Troponin I NT-Pro-B Natriuret Pep 5980 H 5550 H Impressions: Chest X-Ray 09/26/18 00:00 IMPRESSION: No significant change. Assessment & Plan - Diagnosis (1) Vasculitis Is this a current diagnosis for this admission?: Yes Plan: Currently on steroids, rheumatologic workup is pending. (2) Cellulitis Qualifiers: Site of cellulitis: extremity Site of cellulitis of extremity: lower extremity Laterality: right Qualified Code(s): L03.115 - Cellulitis of right lower limb Is this a current diagnosis for this admission?: Yes Plan: Because it is been difficult to discern if this is a cellulitis or a vasculitis, she was also placed on Ancef. We will continue that for now. (3) Atrial fibrillation Qualifiers: Atrial fibrillation type: chronic Qualified Code(s): I48.2 - Chronic atrial fibrillation Is this a current diagnosis for this admission?: Yes Plan: Rate controlled and anticoagulated. (4) Upper respiratory tract infection Qualifiers: URI type: unspecified URI Qualified Code(s): J06.9 - Acute upper respiratory infection, unspecified Is this a current diagnosis for this admission?: Yes Plan: Resolved (5) Thrombocytosis Is this a current diagnosis for this admission?: Yes Plan: Her white count has come back up, but so have her platelets. Her platelets are up to nearly 900,000, so I have restarted her hydroxyurea. - Time Time Spent with patient: 25-34 minutes
[2018-09-29] MEDS: QUETIAPINE FUMARATE 25 MG TABLET PO SCH (21:18)
[2018-09-30] MEDS: METHYLPREDNISOLONE INJ 40 MG/1 ML SDV IV SCH ×4 (05:23→23:02)
[2018-09-30] MEDS: CEFAZOLIN 1 GM/D5W RTU 1 GM/50 ML RTUPB IV SCH ×4 (05:23→23:01)
[2018-09-30] MEDS: POLYETHYLENE GLYCOL 3350 POWDER 17 GM/1 PACKET PO SCH (10:33)
[2018-09-30] MEDS: HYDROXYUREA 500 MG CAPSULE PO SCH (10:34)
[2018-09-30] MEDS: LACTULOSE SYRUP 20 GM/30 ML UDCUP PO SCH ×3 (10:34→18:15)
[2018-09-30] MEDS: DILTIAZEM HCL 180 MG CAPSULE.CR PO SCH ×2 (10:35→21:21)
[2018-09-30] MEDS: APIXABAN 2.5 MG TABLET PO SCH ×2 (10:35→21:21)
[2018-09-30] MEDS: METOPROLOL TARTRATE 50 MG TABLET PO SCH ×2 (10:35→21:21)
[2018-09-30] MEDS: POTASSIUM CHLORIDE 10 MEQ CAPSULE.ER PO SCH (10:36)
[2018-09-30] MEDS: FUROSEMIDE 40 MG TABLET PO SCH (10:36)
[2018-09-30] MEDS: DOCUSATE SODIUM 100 MG CAPSULE PO SCH ×2 (10:36→18:15)
[2018-09-30] MEDS: NYSTATIN/DEXAMETH/DIPHEN SUSP 120 ML PO SCH ×4 (10:37→21:27)
[2018-09-30 11:11] LABS: HEMATOCRIT 31.7 % (36.0-47.0); MEAN CORPUSCULAR HEMOGLOBIN 38.4 pg (27.0-33.4); MEAN CORPUSCULAR HGB CONC 34.7 g/dL (32.0-36.0); MEAN CORPUSCULAR VOLUME 111 fl (80-97); RED BLOOD COUNT 2.87 10^6/uL (3.72-5.28); RED CELL DISTRIBUTION WIDTH 25.8 % (11.5-14.0); WHITE BLOOD COUNT 5.2 10^3/uL (4.0-10.5)
[2018-09-30 11:26] LABS: ANION GAP 10 (5-19); BLOOD UREA NITROGEN 48 mg/dL (7-20); CALCIUM 8.6 mg/dL (8.4-10.2); CARBON DIOXIDE 28 mmol/L (22-30); CHLORIDE 91 mmol/L (98-107); GLUCOSE 181 mg/dL (75-110); SODIUM 129.3 mmol/L (137-145)
[2018-09-30 11:29] LABS: POTASSIUM 6.4 mmol/L (3.6-5.0)
[2018-09-30 11:44] LABS: PLATELET COUNT 1140 10^3/uL (150-450)
[2018-09-30] MEDS ORDERED: GLUCAGON,HUMAN RECOMB 1 MG INJ IM PRN (12:35)
[2018-09-30] MEDS ORDERED: DEXTROSE 40% GEL 15 GM TUBE PO PRN ×2 (12:35)
[2018-09-30] MEDS ORDERED: DEXTROSE 50%-WATER 25 GM/50 ML DISP.SYRIN IV PRN ×2 (12:35)
--- NOTE | 2018-09-30 16:56 | PDOC PROGRESS REPORT ---
Subjective Progress Note for:: 09/30/18 Subjective:: No adverse events overnight. She was not feeling well this morning, but she was feeling a little bit better as the day went on and she ate some lunch. Vital signs been stable. Potassium was elevated this morning, but we repeated the test and it was back to about what it was yesterday. Suspect that the initial blood draw this morning had hemolyzed. Reason For Visit: HEART FAILURE, ATRIAL FIBRILLATION WITH Physical Exam Vital Signs: Temp Pulse Resp BP Pulse Ox 97.2 F 53 L 20 110/94 H 94 09/30/18 15:28 09/30/18 15:28 09/30/18 15:28 09/30/18 15:28 09/30/18 15:28 Intake & Output 09/29/18 09/30/18 10/01/18 06:59 06:59 06:59 Intake Total 1563 600 286 Output Total 525 600 175 Balance 1038 0 111 Weight 75.5 kg 75.1 kg General appearance: PRESENT: no acute distress, cooperative, disheveled, obese Eye exam: PRESENT: conjunctival injection Respiratory exam: PRESENT: clear to auscultation nessa, symmetrical, unlabored. ABSENT: accessory muscle use, crackles, prolonged expiratory phas, rhonchi, tachypnea, wheezes Cardiovascular exam: PRESENT: irregular rhythm Pulses: PRESENT: normal carotid pulses Vascular exam: PRESENT: normal capillary refill GI/Abdominal exam: PRESENT: normal bowel sounds, soft. ABSENT: distended, guarding, rebound, tenderness Extremities exam: PRESENT: pedal edema - Right foot, +2 edema - Right leg distal to the knee, with erythema and petechia. ABSENT: clubbing Musculoskeletal exam: PRESENT: normal inspection. ABSENT: deformity Neurological exam: PRESENT: alert, awake, oriented to person, oriented to place, oriented to time, oriented to situation Psychiatric exam: PRESENT: appropriate affect, normal mood Skin exam: PRESENT: dry, petechiae - Right lower extremity distal to the knee, rash - She has numerous lesions on face, neck, and upper extremities look like actinic keratoses., warm Results Laboratory Results: 09/30/18 10:30 09/30/18 11:55 09/30/18 09/30/18 09/30/18 10:30 10:30 11:55 WBC 5.2 RBC 2.87 L Hgb 11.0 L Hct 31.7 L MCV 111 H MCH 38.4 H MCHC 34.7 RDW 25.8 H Plt Count 1140 H* Sodium 129.3 L Potassium 6.4 H* 5.3 H D Chloride 91 L Carbon Dioxide 28 Anion Gap 10 BUN 48 H Creatinine 0.59 Est GFR ( Amer) > 60 Est GFR (Non-Af Amer) > 60 Glucose 181 H Calcium 8.6 09/20/18 09/20/18 09/20/18 09:46 09:46 09:46 Creatine Kinase Cancelled 38 CK-MB (CK-2) 2.83 Troponin I 0.016 NT-Pro-B Natriuret Pep 6320 H 09/20/18 09/20/18 09/21/18 18:39 18:39 00:58 Creatine Kinase 45 26 L CK-MB (CK-2) 2.42 Troponin I 0.014 NT-Pro-B Natriuret Pep 09/21/18 09/21/18 09/21/18 00:58 08:03 08:03 Creatine Kinase 25 L CK-MB (CK-2) 1.76 1.76 Troponin I 0.024 0.033 NT-Pro-B Natriuret Pep 8390 H 09/25/18 09/27/18 05:57 06:12 Creatine Kinase CK-MB (CK-2) Troponin I NT-Pro-B Natriuret Pep 5980 H 5550 H Impressions: Chest X-Ray 09/26/18 00:00 IMPRESSION: No significant change. Assessment & Plan - Diagnosis (1) Vasculitis Is this a current diagnosis for this admission?: Yes Plan: Currently on steroids, rheumatologic workup is pending. The intensity of the erythema has diminished today compared to yesterday. (2) Cellulitis Qualifiers: Site of cellulitis: extremity Site of cellulitis of extremity: lower extremity Laterality: right Qualified Code(s): L03.115 - Cellulitis of right lower limb Is this a current diagnosis for this admission?: Yes Plan: Because it is been difficult to discern if this is a cellulitis or a vasculitis, she was also placed on Ancef. We will continue that for now. The intensity of the erythema has diminished today compared to yesterday. (3) Atrial fibrillation Qualifiers: Atrial fibrillation type: chronic Qualified Code(s): I48.2 - Chronic atrial fibrillation Is this a current diagnosis for this admission?: Yes Plan: Rate controlled and anticoagulated. (4) Upper respiratory tract infection Qualifiers: URI type: unspecified URI Qualified Code(s): J06.9 - Acute upper respiratory infection, unspecified Is this a current diagnosis for this admission?: Yes Plan: Resolved (5) Thrombocytosis Is this a current diagnosis for this admission?: Yes Plan: Her white count has come back up, but so have her platelets. Her platelets are up to over 1,100,000, so I have restarted her hydroxyurea. (6) Hyperkalemia Is this a current diagnosis for this admission?: Yes Plan: A bit elevated at 5.3. I have stopped her potassium supplement. - Time Time Spent with patient: 25-34 minutes
[2018-09-30] MEDS: INSULIN LISPRO 100 UNIT/ML 3 ML VIAL SUBCUT SCH ×2 (18:15→21:21)
--- NOTE | 2018-09-30 20:15 | Progress Note ---
Provider Note Provider Note: CARDIOLOGY PROGRESS NOTE by Dr. Odalys Santiago on 09/30/2018 SUBJECTIVE: The patient denies any chest pain or discomfort. There is no shortness of breath. She still has orthopnea. Her right leg redness is much improved and almost resolved. Hence most likely this represents infection, rather than vasculitis. Note that the patient's platelets have gone up to 1140. Patient is back on hydroxyurea. She denies any chest pain or discomfort. She denies any cough or sputum production. The patient continues to be in atrial fibrillation with a ventricular response in the 90s. There is no bleeding on Eliquis. There is no TIA CVA symptoms. There is no ventricular arrhythmia seen on the monitor. PHYSICAL EXAMINATION: The patient appears to be chronically ill and is malnourished. But she is in no acute distress. Selected Entries 09/30/18 09/30/18 07:38 07:59 Temperature 97.3 F Temperature Axillary Source Pulse Rate 94 Respiratory 18 Rate Blood Pressure 114/68 Blood Pressure 83 Mean BP Location Left Arm BP Position Supine O2 Sat by Pulse 93 Oximetry Oxygen Flow 5 Rate Oxygen Delivery Nasal Cannula HEAD: Is atraumatic normocephalic. EYES: Pupils are equal round regular react to light accommodation. Extraocular movements are normal. There is mild conjunctival pallor. There is no scleral icterus. ENT is negative. Neck is supple there is no JVD carotids are equal there is no bruits. There is no lymphadenopathy. There is no accessory muscle respiration use. Skin: There is a superficial lesions of ulceration throughout the skin. This is due to the patient's history of skin cancer. LUNGS: There is diminished air entry p rolonged expiration and scattered rhonchi. There is no wheezing or rales. A few dry crackles in both bases consistent with bibasilar pneumoni. HEART: S1-S2 is heard. S1 is of variable intensity. There is no S3 gallop. There is no S4 gallop. There is systolic murmur left sternal border and the apex there is no rub. ABDOMEN: Is soft. There is no hepatosplenic megaly. Bowel sounds are well heard. EXTREMITIES: Femorals are diminished. There is no femoral bruits. Leg pulses are diminished. There is mild bilateral pedal edema. There is much decreased redness in the right lower extremity which appears to be almost resolved. This is cellulitis versus vasculitis. There is no DVT There is no calf tenderness. 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 PSYCHIATRIC: The patient does not appear to be agitated or anxious. 09/27/18 09/27/18 09/30/18 06:12 06:12 10:30 WBC 5.2 RBC 2.87 L Hgb 11.0 L Hct 31.7 L MCV 111 H MCH 38.4 H MCHC 34.7 RDW 25.8 H Plt Count 1140 H* Sodium Potassium Chloride Carbon Dioxide Anion Gap BUN Creatinine Est GFR (Non-Af Amer) Glucose POC Glucose Calcium LILLI (Multiplex) Negative Complement C3 120 Complement C4 26 Tot Complement (CH50) 60 09/30/18 09/30/18 09/30/18 10:30 11:55 12:46 WBC RBC Hgb Hct MCV MCH MCHC RDW Plt Count Sodium 129.3 L Potassium 6.4 H* 5.3 H D Chloride 91 L Carbon Dioxide 28 Anion Gap 10 BUN 48 H Creatinine 0.59 Est GFR (Non-Af Amer) > 60 Glucose 181 H POC Glucose 156 H Calcium 8.6 LILLI (Multiplex) Complement C3 Complement C4 Tot Complement (CH50) IMPRESSION/RECOMMENDATION: 1. Bibasilar pneumonia: Continue antibiotics. Question influenza pneumonia. The patient is off antibiotics, and she has no cough. We will recheck the patient's chest x-ray in the a.m. 2. Atrial fibrillation with fast ventricular response. The patient has persistent atrial fibrillation. At present the heart rate is controlled with an increase in her p.o. Cardizem. Will change to a long-acting Cardizem CD preparation. We will also continue the patient's beta-dasha. We will increase the patient's Cardizem CD.. 3. Leukopenia: Most likely effect of hydroxyurea. Note hydroxyurea has been stopped. 4. 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 Note that the patient's platelets have gone up to 1140, the patient is back on hydroxyurea. 5. Moderate mitral regurgitation by a echo of March 2018. Physical examination shows that the patient still has some mitral regurgitation. 6. Moderate pulmonary hypertension by echo of 03/2018. Continue current medication. 7. History of skin cancer: At present does not seem to be an active problem. 8. Right lower extremity cellulitis versus vasculitis. Note that the patient's sed rate and CRP are very significantly elevated. We will also get a vasculitis workup. So far the complement levels are within normal limits. With the improvement with the antibiotics most likely this is cellulitis. Medications reviewed. Medications added. Discussed management plan with the attending physicians on the case. Discussed with the patient's son. Medical decision making is of high complexity. 40 minutes spent on this patient with more than 50% spent on direct patient care. Will follow.
[2018-09-30] MEDS: QUETIAPINE FUMARATE 25 MG TABLET PO SCH (21:21)
--- NOTE | 2018-09-30 22:51 | EKG REPORT ---
SEVERITY:- ABNORMAL ECG - ATRIAL FIBRILLATION VENTRICULAR PREMATURE COMPLEX LOW VOLTAGE IN FRONTAL LEADS : Confirmed by: Candace Greenwood 30-Sep-2018 22:50:52
[2018-10-01] MEDS: METHYLPREDNISOLONE INJ 40 MG/1 ML SDV IV SCH (05:14)
[2018-10-01] MEDS: CEFAZOLIN 1 GM/D5W RTU 1 GM/50 ML RTUPB IV SCH (05:14)
--- NOTE | 2018-10-01 08:02 | PDOC PROGRESS REPORT ---
Subjective Progress Note for:: 10/01/18 Subjective:: The patient is awake and alert. She is doing much better. Discussed with the son about possible discharge to the rehab tomorrow. She is still getting IV antibiotics and steroids. Medications will be readjusted. Reason For Visit: HEART FAILURE, ATRIAL FIBRILLATION WITH Physical Exam Vital Signs: Temp Pulse Resp BP Pulse Ox 97.3 F 75 20 113/67 93 10/01/18 03:31 10/01/18 03:31 10/01/18 03:31 10/01/18 03:31 10/01/18 03:31 Intake & Output 09/30/18 10/01/18 10/02/18 06:59 06:59 06:59 Intake Total 600 666 Output Total 600 700 Balance 0 -34 Weight 75.1 kg 72.8 kg General appearance: PRESENT: mild distress Head exam: PRESENT: atraumatic Eye exam: PRESENT: conjunctival injection Mouth exam: PRESENT: dry mucosa Neck exam: PRESENT: carotid bruit. ABSENT: JVD Respiratory exam: PRESENT: crackles Cardiovascular exam: PRESENT: +S1, +S2 GI/Abdominal exam: PRESENT: normal bowel sounds, soft Extremities exam: PRESENT: tenderness Musculoskeletal exam: PRESENT: tenderness Neurological exam: PRESENT: alert, awake, oriented to person, oriented to place. ABSENT: oriented to time Skin exam: PRESENT: abrasion, skin tears Results Laboratory Results: 09/30/18 10:30 09/30/18 11:55 09/30/18 09/30/18 09/30/18 10:30 10:30 11:55 WBC 5.2 RBC 2.87 L Hgb 11.0 L Hct 31.7 L MCV 111 H MCH 38.4 H MCHC 34.7 RDW 25.8 H Plt Count 1140 H* Sodium 129.3 L Potassium 6.4 H* 5.3 H D Chloride 91 L Carbon Dioxide 28 Anion Gap 10 BUN 48 H Creatinine 0.59 Est GFR ( Amer) > 60 Est GFR (Non-Af Amer) > 60 Glucose 181 H Calcium 8.6 09/20/18 09/20/18 09/20/18 09:46 09:46 09:46 Creatine Kinase Cancelled 38 CK-MB (CK-2) 2.83 Troponin I 0.016 NT-Pro-B Natriuret Pep 6320 H 09/20/18 09/20/18 09/21/18 18:39 18:39 00:58 Creatine Kinase 45 26 L CK-MB (CK-2) 2.42 Troponin I 0.014 NT-Pro-B Natriuret Pep 09/21/18 09/21/18 09/21/18 00:58 08:03 08:03 Creatine Kinase 25 L CK-MB (CK-2) 1.76 1.76 Troponin I 0.024 0.033 NT-Pro-B Natriuret Pep 8390 H 09/25/18 09/27/18 05:57 06:12 Creatine Kinase CK-MB (CK-2) Troponin I NT-Pro-B Natriuret Pep 5980 H 5550 H Impressions: Chest X-Ray 09/26/18 00:00 IMPRESSION: No significant change. Assessment & Plan - Diagnosis (1) Upper respiratory tract infection Qualifiers: URI type: unspecified URI Qualified Code(s): J06.9 - Acute upper respiratory infection, unspecified Is this a current diagnosis for this admission?: Yes Plan: Resolved continue current treatment (2) Atrial fibrillation Qualifiers: Atrial fibrillation type: chronic Qualified Code(s): I48.2 - Chronic atrial fibrillation Is this a current diagnosis for this admission?: Yes Plan: Stable continue current treatment (3) CHF (congestive heart failure) Qualifiers: Heart failure type: combined systolic and diastolic Heart failure chronicity: chronic Qualified Code(s): I50.42 - Chronic combined systolic (congestive) and diastolic (congestive) heart failure Is this a current diagnosis for this admission?: Yes (4) Hypoxemia Is this a current diagnosis for this admission?: Yes (5) Anemia Qualifiers: Anemia type: iron deficiency Is this a current diagnosis for this admission?: Yes (6) Polycythemia vera Is this a current diagnosis for this admission?: Yes Plan: Restarted on hydroxyurea (7) DNR (do not resuscitate) Is this a current diagnosis for this admission?: Yes Plan: Continue DNR status (8) Confusion and disorientation Is this a current diagnosis for this admission?: Yes Plan: Improved with improvement in her overall status (9) Leukopenia Qualifiers: Neutropenia type: other drug-induced Is this a current diagnosis for this admission?: Yes Plan: Most probably related to medications and a viral syndrome (10) Hyponatremia Is this a current diagnosis for this admission?: Yes (11) Pleural effusion Is this a current diagnosis for this admission?: Yes (12) Constipation Is this a current diagnosis for this admission?: Yes Plan: Improved the patient had a bowel movement yesterday (13) Cellulitis Qualifiers: Site of cellulitis: extremity Site of cellulitis of extremity: lower extremity Laterality: right Qualified Code(s): L03.115 - Cellulitis of right lower limb Is this a current diagnosis for this admission?: Yes Plan: Improved we will switch from IV to p.o. antibiotics (14) Vasculitis Is this a current diagnosis for this admission?: Yes Plan: Improved of the right lower extremity we will continue with steroids
--- NOTE | 2018-10-01 09:01 | RADIOLOGY REPORT (SQ) ---
EXAM DESCRIPTION: CHEST SINGLE VIEW COMPLETED DATE/TIME: 10/01/2018 8:35 am REASON FOR STUDY: Pneumonia COMPARISON: CT angio chest 04/25/2018 Chest films 04/25/2018, 09/20/2018, 09/24/2018, 09/26/2018 EXAM PARAMETERS: NUMBER OF VIEWS: One view. TECHNIQUE: Single frontal radiographic view of the chest acquired. RADIATION DOSE: NA LIMITATIONS: None. FINDINGS: LUNGS AND PLEURA: Stable small to moderate bilateral pleural effusions accounting for tech nique. There is bibasilar airspace disease atelectasis versus pneumonia, unchanged from multiple previous st udies. No pneumothorax MEDIASTINUM AND HILAR STRUCTURES: No masses. Contour normal. HEART AND VASCULAR STRUCTURES: Stable cardiomegaly BONES: No acute findings. HARDWARE: None in the chest. OTHER: No other significant finding. IMPRESSION: Stable small to moderate bilateral pleural effusions and bibasilar airspace disease. TECHNICAL DOCUMENTATION: JOB ID: [id number] [employer]- All Rights Reserved Reading location - IP/workstation name: [email or web address]
[2018-10-01] MEDS: POLYETHYLENE GLYCOL 3350 POWDER 17 GM/1 PACKET PO SCH (10:00)
[2018-10-01] MEDS: DOCUSATE SODIUM 100 MG CAPSULE PO SCH ×2 (10:00→18:02)
[2018-10-01] MEDS: LACTULOSE SYRUP 20 GM/30 ML UDCUP PO SCH ×3 (10:00→18:02)
[2018-10-01] MEDS: NYSTATIN/DEXAMETH/DIPHEN SUSP 120 ML PO SCH ×4 (10:00→21:28)
[2018-10-01] MEDS: DILTIAZEM HCL 180 MG CAPSULE.CR PO SCH ×2 (10:02→21:31)
[2018-10-01] MEDS: FUROSEMIDE 40 MG TABLET PO SCH (10:02)
[2018-10-01] MEDS: METOPROLOL TARTRATE 50 MG TABLET PO SCH ×2 (10:03→21:31)
[2018-10-01] MEDS: APIXABAN 2.5 MG TABLET PO SCH ×2 (10:04→21:31)
[2018-10-01] MEDS: HYDROXYUREA 500 MG CAPSULE PO SCH (10:04)
[2018-10-01] MEDS: INSULIN LISPRO 100 UNIT/ML 3 ML VIAL SUBCUT SCH (10:51)
[2018-10-01 15:38] LABS: PATH REVIEW PATHOLOGIST REVIEWED
[2018-10-01 16:38] LABS: ANTIMYELOPEROXIDASE (MPO) AB <9.0 U/mL (0.0-9.0); CYTOPLASMIC (C-ANCA) <1:20 titer (Neg:<1:20)
--- NOTE | 2018-10-01 17:58 | Progress Note ---
Provider Note Provider Note: CARDIOLOGY PROGRESS NOTE by Dr. Odalys Martinez on 10/01/2018 SUBJECTIVE: The patient denies any chest pain or discomfort. She has no shortness of breath. She does have orthopnea but no PND. There is no cough or sputum production. The patient continues to be atrial fibrillation with better rate control. There is no ventricular arrhythmia seen on the monitor. Her right lower extremity redness is resolved. PHYSICAL EXAMINATION: The patient's a frail build. She appears chronically ill. She is in no acute distress. Selected Entries 10/01/18 11:11 Temperature 97.4 F Temperature Oral Source Pulse Rate 77 Respiratory 20 Rate Blood Pressure 112/69 Blood Pressure 83 Mean BP Location Right Arm BP Position Supine O2 Sat by Pulse 93 Oximetry Oxygen Flow 6.00 Rate Oxygen Delivery Nasal Cannula Method HEAD: Is atraumatic normocephalic. EYES: Pupils are equal round regular react to light accommodation. Extraocular movements are normal. There is mild conjunctival pallor. There is no scleral icterus. ENT is negative. Neck is supple there is no JVD carotids are equal there is no bruits. There is no lymphadenopathy. There is no accessory muscle respiration use. Skin: There is a superficial lesions of ulceration throughout the skin. This is due to the p atuzair's history of skin cancer. LUNGS: There is diminished air entry prolonged expiration and scattered rhonchi. There is no wheezing or rales. A few dry crackles in both bases consistent with bibasilar pneumoni. HEART: S1-S2 is heard. S1 is of variable intensity. There is no S3 gallop. There is no S4 gallop. There is systolic murmur left sternal border and the apex there is no rub. ABDOMEN: Is soft. There is no hepatosplenic megaly. Bowel sounds are well heard. EXTREMITIES: Femorals are diminished. There is no femoral bruits. Leg pulses are diminished. There is mild bilateral pedal edema. There is no redness in the right lower extremity . This is cellulitis versus vasculitis. There is no DVT There is no calf tenderness. LITIGATOR: The patient is very sleepy but moves all 4 extremities. PSYCHIATRIC: The patient does not appear to be agitated or anxious. 09/30/18 09/30/18 10/01/18 16:34 21:12 08:10 POC Glucose 165 H 158 H 159 H Chest X-Ray 09/20/18 09:21 IMPRESSION: Small bilateral pleural effusions with bibasilar airspace disease Marked cardiomegaly Chest X-Ray 09/24/18 00:00 IMPRESSION: Small to moderate bilateral pleural effusions are present Bibasilar airspace disease atelectasis versus pneumonia Cardiomegaly, pericardial effusion could not be excluded Chest X-Ray 09/26/18 00:00 IMPRESSION: No significant change. Chest X-Ray 10/01/18 06:00 IMPRESSION: Stable small to moderate bilateral pleural effusions and bibasilar airspace disease. IMPRESSION/RECOMMENDATION: 1. Bibasilar pneumonia: Continue antibiotics. Question influenza pneumonia. The patient is off antibiotics, and she has no cough. We will recheck the patient's chest x-ray in the a.m. 2. Atrial fibrillation with fast ventricular response. The patient has persistent atrial fibrillation. At present the heart rate is controlled with an increase in her p.o. Cardizem. Will change to a long-acting Cardizem CD preparation. We will also continue the patient's beta-dasha. We will increase the patient's Cardizem CD.. 3. Leukopenia: Most likely effect of hydroxyurea. Note hydroxyurea has been restarted, since the patient's white count has come up and the patient's platelet count has gone up. 4. 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 Note that the patient's platelets have gone up to 1140, the patient is back on hydroxyurea. 5. Moderate mitral regurgitation by a echo of March 2018. Physical examination shows that the patient still has some mitral regurgitation. 6. Moderate pulmonary hypertension by echo of 03/2018. Continue current medication. 7. History of skin cancer: At present does not seem to be an active problem. 8. Right lower extremity cellulitis versus vasculitis. Note that the patient's sed rate and CRP are very significantly elevated. We will also get a vasculitis workup. So far the complement levels are within normal limits. With the improvement with the antibiotics most likely this is cellulitis. Medications reviewed. Medications added. Discussed management plan with the attending physicians on the case. Discussed with the patient's son. Medical decision making is of high complexity. 40 minutes spent on this patient with more than 50% spent on direct patient care. Will sign off.
[2018-10-01] MEDS ORDERED: PREDNISONE 10 MG TABLET PO SCH (18:00)
[2018-10-01] MEDS: CEPHALEXIN 500 MG CAPSULE PO SCH (18:02)
[2018-10-01] MEDS: QUETIAPINE FUMARATE 25 MG TABLET PO SCH (21:31)
[2018-10-02 05:14] LABS: HEMATOCRIT 32.1 % (36.0-47.0); HEMOGLOBIN 10.9 g/dL (12.0-15.5); MEAN CORPUSCULAR HEMOGLOBIN 37.6 pg (27.0-33.4); MEAN CORPUSCULAR VOLUME 111 fl (80-97); RED CELL DISTRIBUTION WIDTH 25.4 % (11.5-14.0); WHITE BLOOD COUNT 6.5 10^3/uL (4.0-10.5)
[2018-10-02] MEDS: CEPHALEXIN 500 MG CAPSULE PO SCH ×2 (05:22→18:38)
[2018-10-02 05:44] LABS: ANION GAP 7 (5-19); BLOOD UREA NITROGEN 48 mg/dL (7-20); CALCIUM 8.5 mg/dL (8.4-10.2); CARBON DIOXIDE 29 mmol/L (22-30); CHLORIDE 96 mmol/L (98-107); GLUCOSE 139 mg/dL (75-110); POTASSIUM 5.9 mmol/L (3.6-5.0); SODIUM 131.5 mmol/L (137-145)
[2018-10-02 05:49] LABS: ABSOLUTE NEUTROPHILS# (MANUAL) 5.1 10^3/uL (1.7-8.2); BASOPHILS % (MANUAL) 0 % (0-2); EOSINOPHILS % (MANUAL) 0 % (0-6); SEGMENTED NEUTROPHILS % (MAN) 78 % (42-78)
[2018-10-02 05:50] LABS: ABSOLUTE LYMPHOCYTES# (MANUAL) 0.9 10^3/uL (0.5-4.7); ABSOLUTE MONOCYTES # (MANUAL) 0.5 10^3/uL (0.1-1.4); LYMPHOCYTES % (MANUAL) 14 % (13-45); MONOCYTES % (MANUAL) 8 % (3-13); TOTAL CELLS COUNTED 100
[2018-10-02 05:52] LABS: TOXIC GRANULATION 1+; TOXIC VACUOLATION PRESENT
[2018-10-02 05:53] LABS: ANISOCYTOSIS 3+; OVALOCYTES 2+; PLATELET COMMENT ADEQUATE; POIKILOCYTOSIS 3+; SCHISTOCYTES SLIGHT; TEAR DROP CELLS 1+
[2018-10-02 08:22] LABS: PERINUCLEAR (P-ANCA) <1:20 titer (Neg:<1:20)
--- NOTE | 2018-10-02 08:35 | PDOC PROGRESS REPORT ---
Subjective Progress Note for:: 10/02/18 Subjective:: Patient seen in rounds this morning. She is more lethargic. Discussed with the son about comfort measures and hospice. He does agree to it. Will consult hospice prior to transfer to residential Reason For Visit: HEART FAILURE, ATRIAL FIBRILLATION WITH Physical Exam Vital Signs: Temp Pulse Resp BP Pulse Ox 97.3 F 85 20 103/56 L 90 L 10/02/18 07:19 10/02/18 07:19 10/02/18 07:19 10/02/18 07:19 10/02/18 07:19 Intake & Output 10/01/18 10/02/18 10/03/18 06:59 06:59 06:59 Intake Total 666 829 Output Total 700 200 Balance -34 629 Weight 72.8 kg 68.1 kg General appearance: PRESENT: mild distress Head exam: PRESENT: atraumatic Eye exam: PRESENT: conjunctival injection Mouth exam: PRESENT: dry mucosa Neck exam: PRESENT: carotid bruit. ABSENT: JVD Respiratory exam: PRESENT: rhonchi Cardiovascular exam: PRESENT: irregular rhythm, +S1, +S2 GI/Abdominal exam: PRESENT: normal bowel sounds, soft Neurological exam: PRESENT: awake. ABSENT: alert Results Laboratory Results: 10/02/18 04:45 10/02/18 04:45 10/02/18 10/02/18 04:45 04:45 WBC 6.5 RBC 2.90 L Hgb 10.9 L Hct 32.1 L MCV 111 H MCH 37.6 H MCHC 34.0 RDW 25.4 H Plt Count 1209 H* Seg Neutrophils % Not Reportable Lymphocytes % Not Reportable Monocytes % Not Reportable Eosinophils % Not Reportable Basophils % Not Reportable Absolute Neutrophils Not Reportable Absolute Lymphocytes Not Reportable Absolute Monocytes Not Reportable Absolute Eosinophils Not Reportable Absolute Basophils Not Reportable Sodium 131.5 L Potassium 5.9 H Chloride 96 L Carbon Dioxide 29 Anion Gap 7 BUN 48 H Creatinine 0.60 Est GFR ( Amer) > 60 Est GFR (Non-Af Amer) > 60 Glucose 139 H Calcium 8.5 09/20/18 09/20/18 09/20/18 09:46 09:46 09:46 Creatine Kinase Cancelled 38 CK-MB (CK-2) 2.83 Troponin I 0.016 NT-Pro-B Natriuret Pep 6320 H 09/20/18 09/20/18 09/21/18 18:39 18:39 00:58 Creatine Kinase 45 26 L CK-MB (CK-2) 2.42 Troponin I 0.014 NT-Pro-B Natriuret Pep 09/21/18 09/21/18 09/21/18 00:58 08:03 08:03 Creatine Kinase 25 L CK-MB (CK-2) 1.76 1.76 Troponin I 0.024 0.033 NT-Pro-B Natriuret Pep 8390 H 09/25/18 09/27/18 05:57 06:12 Creatine Kinase CK-MB (CK-2) Troponin I NT-Pro-B Natriuret Pep 5980 H 5550 H Impressions: Chest X-Ray 10/01/18 06:00 IMPRESSION: Stable small to moderate bilateral pleural effusions and bibasilar airspace disease. Assessment & Plan - Diagnosis (1) Upper respiratory tract infection Qualifiers: URI type: unspecified URI Qualified Code(s): J06.9 - Acute upper respiratory infection, unspecified Is this a current diagnosis for this admission?: Yes (2) Atrial fibrillation Qualifiers: Atrial fibrillation type: chronic Qualified Code(s): I48.2 - Chronic atrial fibrillation Is this a current diagnosis for this admission?: Yes Plan: Stable continue current treatment (3) CHF (congestive heart failure) Qualifiers: Heart failure type: combined systolic and diastolic Heart failure chronicity: chronic Qualified Code(s): I50.42 - Chronic combined systolic (congestive) and diastolic (congestive) heart failure Is this a current diagnosis for this admission?: Yes (4) Hypoxemia Is this a current diagnosis for this admission?: Yes (5) Anemia Qualifiers: Anemia type: iron deficiency Is this a current diagnosis for this admission?: Yes (6) Polycythemia vera Is this a current diagnosis for this admission?: Yes Plan: Restarted on hydroxyurea (7) DNR (do not resuscitate) Is this a current diagnosis for this admission?: Yes Plan: Continue DNR status (8) Confusion and disorientation Is this a current diagnosis for this admission?: Yes Plan: Improved with improvement in her overall status (9) Leukopenia Qualifiers: Neutropenia type: other drug-induced Is this a current diagnosis for this admission?: Yes (10) Hyponatremia Is this a current diagnosis for this admission?: Yes (11) Pleural effusion Is this a current diagnosis for this admission?: Yes (12) Constipation Is this a current diagnosis for this admission?: Yes (13) Cellulitis Qualifiers: Site of cellulitis: extremity Site of cellulitis of extremity: lower extremity Laterality: right Qualified Code(s): L03.115 - Cellulitis of right lower limb Is this a current diagnosis for this admission?: Yes (14) Vasculitis Is this a current diagnosis for this admission?: Yes (15) Pseudohyperkalemia [place] Is this a current diagnosis for this admission?: Yes Plan: We will obtain plasma potassium and continue with other medications (16) Need for comfort care Is this a current diagnosis for this admission?: Yes Plan: We will place on comfort care (17) Hospice care Is this a current diagnosis for this admission?: Yes Plan: We will consult hospice after discussion with the son
[2018-10-02] MEDS: DILTIAZEM HCL 180 MG CAPSULE.CR PO SCH ×2 (11:12→21:20)
[2018-10-02] MEDS: FUROSEMIDE 40 MG TABLET PO SCH (11:12)
[2018-10-02] MEDS: PREDNISONE 10 MG TABLET PO SCH (11:12)
[2018-10-02] MEDS: DOCUSATE SODIUM 100 MG CAPSULE PO SCH ×2 (11:12→18:38)
[2018-10-02] MEDS: METOPROLOL TARTRATE 50 MG TABLET PO SCH ×2 (11:13→21:20)
[2018-10-02] MEDS: HYDROXYUREA 500 MG CAPSULE PO SCH (11:15)
[2018-10-02] MEDS: APIXABAN 2.5 MG TABLET PO SCH ×2 (11:15→21:20)
[2018-10-02] MEDS: LACTULOSE SYRUP 20 GM/30 ML UDCUP PO SCH ×3 (11:16→18:38)
[2018-10-02] MEDS: NYSTATIN/DEXAMETH/DIPHEN SUSP 120 ML PO SCH ×4 (11:16→21:23)
[2018-10-02] MEDS: POLYETHYLENE GLYCOL 3350 POWDER 17 GM/1 PACKET PO SCH (11:16)
[2018-10-02 15:39] LABS: PLATELET COUNT 1209 10^3/uL (150-450)
[2018-10-02] MEDS: QUETIAPINE FUMARATE 25 MG TABLET PO SCH (21:20)
[2018-10-03] MEDS: CEPHALEXIN 500 MG CAPSULE PO SCH (06:02)
[2018-10-03] MEDS: FUROSEMIDE 40 MG TABLET PO SCH (09:48)
[2018-10-03] MEDS: HYDROXYUREA 500 MG CAPSULE PO SCH (09:48)
[2018-10-03] MEDS: NYSTATIN/DEXAMETH/DIPHEN SUSP 120 ML PO SCH ×2 (09:48→13:40)
[2018-10-03] MEDS: PREDNISONE 10 MG TABLET PO SCH (09:49)
[2018-10-03] MEDS: DILTIAZEM HCL 180 MG CAPSULE.CR PO SCH (09:49)
[2018-10-03] MEDS: METOPROLOL TARTRATE 50 MG TABLET PO SCH (09:49)
[2018-10-03] MEDS: POLYETHYLENE GLYCOL 3350 POWDER 17 GM/1 PACKET PO SCH (09:49)
[2018-10-03] MEDS: LACTULOSE SYRUP 20 GM/30 ML UDCUP PO SCH ×2 (09:49→13:39)
[2018-10-03] MEDS: APIXABAN 2.5 MG TABLET PO SCH (09:49)
[2018-10-03] MEDS: DOCUSATE SODIUM 100 MG CAPSULE PO SCH (09:49)
--- NOTE | 2018-10-03 10:35 | PDOC TRANSFER SUMMARY ---
General - Admit/Disc Date/PCP Admission Date/Primary Care Provider: 09/20/18 14:59 JAVIER BYERS MD Discharge Date: 10/03/18 - Discharge Diagnosis (1) Upper respiratory tract infection Is this a current diagnosis for this admission?: Yes (2) Atrial fibrillation Is this a current diagnosis for this admission?: Yes Summary: Continue current medications (3) CHF (congestive heart failure) Is this a current diagnosis for this admission?: Yes (4) Hypoxemia Is this a current diagnosis for this admission?: Yes Summary: Continue supplemental oxygen (5) Anemia Is this a current diagnosis for this admission?: Yes (6) Polycythemia vera Is this a current diagnosis for this admission?: Yes Summary: Continue current medications (7) DNR (do not resuscitate) Is this a current diagnosis for this admission?: Yes Summary: Continue DNR status and comfort measures (8) Confusion and disorientation Is this a current diagnosis for this admission?: Yes Summary: Continue current treatment (9) Leukopenia Is this a current diagnosis for this admission?: Yes (10) Hyponatremia Is this a current diagnosis for this admission?: Yes (11) Pleural effusion Is this a current diagnosis for this admission?: Yes (12) Constipation Is this a current diagnosis for this admission?: Yes (13) Cellulitis Is this a current diagnosis for this admission?: Yes (14) Vasculitis Is this a current diagnosis for this admission?: Yes (15) Pseudohyperkalemia [place] Is this a current diagnosis for this admission?: Yes Summary: Will improve once the platelet count is down with appropriate medications (16) Need for comfort care Is this a current diagnosis for this admission?: Yes Summary: DNR and comfort care (17) Hospice care Is this a current diagnosis for this admission?: Yes - Additional Information Resuscitation Status: Do Not Resuscitate Discharge Diet: As Tolerated Discharge Activity: Activity As Tolerated, Balance Activity w/Rest, Weigh Daily Home Medications: Apixaban [Eliquis 2.5 mg Tablet] 2.5 mg PO Q12 09/20/18 Tobramycin Sulfate/Dexameth [Tobradex Oph Ointment 3.5 gm] 1 applic OU DAILYP PRN 09/20/18 Acetaminophen [Tylenol 325 mg Tablet] 650 mg PO Q4HP PRN tablet 10/02/18 Cephalexin Monohydrate [Keflex 500 mg Capsule] 500 mg PO Q12A capsule 10/02/18 Diltiazem HCl [Cardizem Cd 180 mg Capsule] 180 mg PO Q12 capsule.cr 10/02/18 Docusate Sodium [Colace 100 mg Capsule] 100 mg PO BID capsule 10/02/18 Furosemide [Lasix 40 mg Tablet] 40 mg PO DAILY tablet 10/02/18 Hydroxyurea [Hydrea 500 mg Capsule] 1,500 mg PO DAILY capsule 10/02/18 Lactulose [Cephulac Syrup 20 gm/30 ml Udcup] 10 gm PO TID udc 10/02/18 Metoprolol Tartrate [Lopressor 50 mg Tablet] 50 mg PO Q12 tablet 10/02/18 Polyethylene Glycol 3350 [Miralax Powder 17 gm/Packet] 17 gm PO DAILY powd.pack 10/02/18 Prednisone [Deltasone 10 mg Tablet] 10 mg PO DAILY 5 Days tablet 10/02/18 Quetiapine Fumarate [Seroquel 25 mg Tablet] 25 mg PO QHS tablet 10/02/18 History of Present Illness Admission Date/PCP: 09/20/18 14:59 JAVIER BYERS MD Hospital Course Hospital Course: The patient was admitted with upper respiratory tract infection. She has tolerated medications well and it all resolved. Unfortunately the patient developed rapid A. fib with RVR. Medications needed to be readjusted. Because of severe deconditioning we have discussed with the son about the need for rehab. The patient is not able to live on her own. She also has developed some vasculitis and cellulitis of the right lower extremity which was treated with steroids and antibiotics and resolved. Unfortunately the patient is very frail. She is having a lot of sun downs. She is presently requiring some physical therapy and range of motion therapy. The family understands that it is the end of life and the patient does have a DNR. They do want to continue with comfort care. We need to continue with her heart medications. Physical Exam Vital Signs: Temp Pulse Resp BP Pulse Ox 97.5 F 73 20 102/69 97 10/02/18 19:48 10/03/18 07:00 10/02/18 19:48 10/02/18 19:48 10/02/18 19:48 Intake & Output 10/02/18 10/03/18 10/04/18 06:59 06:59 06:59 Intake Total 829 375 Output Total 200 Balance 629 375 Weight 68.1 kg 70.8 kg General appearance: PRESENT: no acute distress Head exam: PRESENT: atraumatic Eye exam: PRESENT: conjunctival injection Respiratory exam: PRESENT: crackles Cardiovascular exam: PRESENT: irregular rhythm, +S1, +S2 GI/Abdominal exam: PRESENT: normal bowel sounds, soft Extremities exam: PRESENT: tenderness. ABSENT: full ROM Musculoskeletal exam: PRESENT: tenderness. ABSENT: full ROM Neurological exam: PRESENT: awake, oriented to person. ABSENT: oriented to place, oriented to time Skin exam: PRESENT: abrasion Results Laboratory Results: 10/02/18 04:45 10/02/18 08:44 10/02/18 04:45 Plt Count 1209 H* 09/20/18 09/20/18 09/20/18 09:46 09:46 09:46 Creatine Kinase Cancelled 38 CK-MB (CK-2) 2.83 Troponin I 0.016 NT-Pro-B Natriuret Pep 6320 H 09/20/18 09/20/18 09/21/18 18:39 18:39 00:58 Creatine Kinase 45 26 L CK-MB (CK-2) 2.42 Troponin I 0.014 NT-Pro-B Natriuret Pep 09/21/18 09/21/18 09/21/18 00:58 08:03 08:03 Creatine Kinase 25 L CK-MB (CK-2) 1.76 1.76 Troponin I 0.024 0.033 NT-Pro-B Natriuret Pep 8390 H 09/25/18 09/27/18 05:57 06:12 Creatine Kinase CK-MB (CK-2) Troponin I NT-Pro-B Natriuret Pep 5980 H 5550 H Impressions: Chest X-Ray 10/01/18 06:00 IMPRESSION: Stable small to moderate bilateral pleural effusions and bibasilar airspace disease. Qualifiers - * PATIENT BEING DISCHARGED WITH ANY OF THE FOLLOWING DIAGNOSIS: No
[2018-10-03 12:29] VITALS: BP 102/68
[2018-10-07 06:08] LABS: COMPLEMENT C5 22 mg/dL (7-20)
== END 2018-10-03 15:00 | DRG 194 ==
LOC: ER 09:15 → EH 14:59 → 3S 21:34
PROVIDERS: ADMIT Internal Medicine; ATTEND Internal Medicine
PROC: 30233N1 Transfusion of Nonautologous Red Blood Cells into Peripheral Vein, Percutaneous Approach (ICD-10-PCS; principal; 2018-09-21)
DX: J18.9 Pneumonia, unspecified organism (principal); I50.42 Chronic combined systolic (congestive) and diastolic (congestive) heart failure; E87.1 Hypo-osmolality and hyponatremia; L03.115 Cellulitis of right lower limb; Z66 Do not resuscitate; I48.2 Chronic atrial fibrillation; I11.0 Hypertensive heart disease with heart failure; R09.02 Hypoxemia; D45 Polycythemia vera; D50.9 Iron deficiency anemia, unspecified; I27.20 Pulmonary hypertension, unspecified; E78.5 Hyperlipidemia, unspecified; I34.0 Nonrheumatic mitral (valve) insufficiency; D47.3 Essential (hemorrhagic) thrombocythemia; R41.0 Disorientation, unspecified; L95.9 Vasculitis limited to the skin, unspecified; K59.00 Constipation, unspecified; D70.2 Other drug-induced agranulocytosis; T45.1X5A Adverse effect of antineoplastic and immunosuppressive drugs, initial encounter; Y92.89 Other specified places as the place of occurrence of the external cause; Z60.2 Problems related to living alone; Z79.01 Long term (current) use of anticoagulants
CPT/HCPCS: 36415; 36430; 36600; 71045; 80048; 80053; 81001; 82550; 82553; 82803; 82962; 83516; 83735; 83880; 84132; 84484; 85025; 85027; 85652; 86038; 86140; 86160; 86162; 86256; 86850; 86900; 86901; 86920; 93005; 93010; 96374; 96375; 99285; J0690; J0743; J1815; J1940; J2405; J2920; J3490; J7512; P9016

== ENCOUNTER 2018-10-04 02:42 | Emergency (ER) | payer MEDICARE, OTHER ==
--- NOTE | 2018-10-04 03:16 | ER Document Report ---
ED General - General Stated Complaint: RECTAL BLEEDING Time Seen by Provider: 10/04/18 02:56 Primary Care Provider: JAVIER BYERS MD [Primary Care Provider] - Follow up as needed TRAVEL OUTSIDE OF THE [place] IN LAST 30 DAYS: No - HPI Notes: Patient is a 88-year-old female that presents to the emergency department for chief complaint of rectal bleeding. Patient was just discharged to [facility] on 10/02/18 after being admitted to the hospital for URI. [place] sent her to the emergency room for concern of rectal bleeding. They noted blood in her diaper when she was evaluated this evening. Patient denies any symptoms. She states she feels tired but okay. She denies any abdominal pain, lightheadedness, pelvic pain, chest pain, palpitations and shortness of breath. She is currently on Eliquis for atrial fibrillation Past Medical History: A. fib with RVR, polycythemia vera Past Surgical History: Reviewed in chart Social History: Lives at half-way facility, hospice Family History: Reviewed and noncontributory for presenting illness Allergies: Reviewed, see documented allergy list. REVIEW OF SYSTEMS: CONSTITUTIONAL : No fever No chills No diaphoresis No recent illness EENT: No vision changes No congestion No sore throat CARDIOVASCULAR: No chest pain No palpitations RESPIRATORY: No shortness of breath No cough No difficulty breathing GASTROINTESTINAL: No abdominal pain Rectal bleeding No nausea No vomiting No diarrhea GENITOURINARY: No dysuria No hematuria No difficulty urinating MUSCULOSKELETAL: No back pain No leg pain No arm pain SKIN: No rashes No lesions LYMPHATIC: No swollen, enlarged glands. NEUROLOGICAL: No lightheadedness No headache No weakness No paresthesias PSYCHIATRIC: No anxiety No depression PHYSICAL EXAMINATION: Vital signs reviewed, nursing noted reviewed. GENERAL: Frail and in no acute distress. HEAD: Atraumatic, normocephalic. EYES: Bilateral lower eyelid ptosis, extraocular movements intact, sclera anicteric, conjunctiva are injected ENT: nares patent, oropharynx clear without exudates. Dry mucous membranes. NECK: Normal range of motion, supple without lymphadenopathy LUNGS: Breath sounds clear to auscultation bilaterally and equal. No wheezes rales or rhonchi. HEART: Irregularly irregular rhythm with normal rate and without murmurs ABDOMEN: Mildly distended, soft, nontender, normoactive bowel sounds. No rebound, guarding, or rigidity. No masses appreciated. : Normal rectal exam, Dark red active vaginal bleeding EXTREMITIES: Nontender, +2 pitting edema bilateral lower extremities, right greater than left. NEUROLOGICAL: Alert and oriented to person place time and situation. No focal neurological deficits. Moves all extremities spontaneously Motor and sensory grossly intact on exam. PSYCH: Normal mood, normal affect. SKIN: Warm, Dry, normal turgor, no rashes or lesions noted on exposed skin - Related Data Allergies/Adverse Reactions: No Known Allergies Allergy (Verified 04/25/18 21:36) Past Medical History - Social History Smoking Status: Never Smoker Family History: Reviewed & Not Pertinent, Hypertension - Past Medical History Cardiac Medical History: Reports: Hx Atrial Fibrillation, Hx Hypertension Pulmonary Medical History: Denies: Hx Tuberculosis Neurological Medical History: Denies: Hx Seizures Renal/ Medical History: Denies: Hx Peritoneal Dialysis Malignancy Medical History: Reports: Hx Skin Cancer Psychiatric Medical History: Denies: Hx Depression Past Surgical History: Reports: Hx Appendectomy, Hx Hysterectomy. Denies: Hx Pacemaker - Immunizations Hx Diphtheria, Pertussis, Tetanus Vaccination: Yes Hx Pneumococcal Vaccination: 07/31/08 Physical Exam - Vital signs Vitals: Temp BP 98.9 F 129/79 H 10/04/18 02:50 10/04/18 02:50 Course - Re-evaluation Re-evalutation: 10/04/18 03:16 Vitals reviewed. Nursing notes reviewed. Patient was recently put on hospice care and made DNR with comfort care by her primary care physician Dr. Byers and family. Patient does wish to continue with her DNR comfort measures ordered. She has declined speculum exam. I did attempt to reach her son Brett and her neighbor Diana however both phone numbers did not work. Patient currently has a moderate amount of vaginal bleeding but is otherwise asymptomatic and comfortable. She denies any pain. Basic lab work will be ordered. 10/04/18 04:59 patient re-evaluated. She is tolerating oral intake. Patient's heart rate has been between 90s and 115 and she is in atrial fibrillation. Patients lab work is improved from her recent labs at discharge. She does have polycythemia vera and a platelet count today of 1225. Patient's vaginal bleeding has slowed down. She has not soaked through 1 adult diaper worth of vaginal bleeding throughout her stay in the emergency room. She is on hospice and I am attempting to reach Dr. Byers to discuss discharging back to half-way facility for further hospice and comfort care management. Laboratory 10/04/18 10/04/18 10/04/18 03:24 03:24 03:24 WBC 4.9 RBC 3.34 L Hgb 12.6 Hct 37.6 MCV 112 H MCH 37.7 H MCHC 33.6 RDW 25.7 H Plt Count 1225 H* Total Counted 100 Seg Neutrophils % Not Reportable Seg Neuts % (Manual) 64 Lymphocytes % Not Reportable Lymphocytes % (Manual) 27 Atypical Lymphs % 1 Monocytes % Not Reportable Monocytes % (Manual) 7 Eosinophils % Not Reportable Eosinophils % (Manual) 1 Basophils % Not Reportable Basophils % (Manual) 0 Immature Leukocytes % Not Reportable Absolute Neutrophils Not Reportable Abs Neuts (Manual) 3.1 Absolute Lymphocytes Not Reportable Abs Lymphs (Manual) 1.3 Absolute Monocytes Not Reportable Abs Monocytes (Manual) 0.3 Absolute Eosinophils Not Reportable Absolute Eos (Manual) 0.0 Absolute Basophils Not Reportable Abs Basophils (Manual) 0.0 Nucleated RBCs 6 Toxic Granulation SLIGHT Toxic Vacuolation PRESENT Polychromasia 1+ Poikilocytosis 1+ Anisocytosis 3+ Macrocytosis 3+ Tear Drop Cells SLIGHT Ovalocytes 1+ PT 19.4 H INR 1.55 APTT 38.5 H Sodium 133.8 L Potassium 5.5 H Chloride 96 L Carbon Dioxide 31 H Anion Gap 7 BUN 38 H Creatinine 0.51 L Est GFR ( Amer) > 60 Est GFR (Non-Af Amer) > 60 Glucose 113 H Calcium 8.5 Blood Type Antibody Screen 10/04/18 03:24 WBC RBC Hgb Hct MCV MCH MCHC RDW Plt Count Total Counted Seg Neutrophils % Seg Neuts % (Manual) Lymphocytes % Lymphocytes % (Manual) Atypical Lymphs % Monocytes % Monocytes % (Manual) Eosinophils % Eosinophils % (Manual) Basophils % Basophils % (Manual) Immature Leukocytes % Absolute Neutrophils Abs Neuts (Manual) Absolute Lymphocytes Abs Lymphs (Manual) Absolute Monocytes Abs Monocytes (Manual) Absolute Eosinophils Absolute Eos (Manual) Absolute Basophils Abs Basophils (Manual) Nucleated RBCs Toxic Granulation Toxic Vacuolation Polychromasia Poikilocytosis Anisocytosis Macrocytosis Tear Drop Cells Ovalocytes PT INR APTT Sodium Potassium Chloride Carbon Dioxide Anion Gap BUN Creatinine Est GFR ( Amer) Est GFR (Non-Af Amer) Glucose Calcium Blood Type O POSITIVE Antibody Screen NEGATIVE 10/04/18 06:09 I have made multiple attempts to reach Dr. Byers may have had no response. Patient has remained hemodynamically stable. She is mildly tachycardic likely related to her atrial fibrillation and not receiving home medications. Patient's bleeding has remained minimal. Plan to discharge back to half-way facility to continue with hospice orders and her DNR comfort care as documented in the discharge summary and progress notes. - Vital Signs Vital signs: Temp Pulse Resp BP Pulse Ox 98.9 F 18 124/73 97 10/04/18 02:50 10/04/18 05:01 10/04/18 05:01 10/04/18 05:01 - Laboratory Result Diagrams: 10/04/18 03:24 10/04/18 03:24 Laboratory results interpreted by me: 10/04/18 10/04/18 10/04/18 03:24 03:24 03:24 RBC 3.34 L MCV 112 H MCH 37.7 H RDW 25.7 H Plt Count 1225 H* PT 19.4 H APTT 38.5 H Sodium 133.8 L Potassium 5.5 H Chloride 96 L Carbon Dioxide 31 H BUN 38 H Creatinine 0.51 L Glucose 113 H Discharge - Discharge Clinical Impression: Vaginal bleeding, Polycythemia vera Afib Qualifiers: Atrial fibrillation type: chronic Qualified Code(s): I48.2 - Chronic atrial fibrillation Condition: Stable Disposition: HOME, SELF-CARE Instructions: Vaginal Bleeding ([facility]) Additional Instructions: Please return to the emergency department if you have any worsening, or concern of your symptoms. Please return to the emergency department if you develop chest pain, difficulty breathing, severe abdominal pain, or ongoing vomiting. Please follow-up with your primary care physician in 2-3 days and any other recommended physicians. If prescribed, take all medications as directed. If you have any questions or concerns do not hesitate to return the emergency department for evaluation. Documentation from your discharge from this facility shows plan for hospice with comfort care and DNR orders. If this has not been established at her half-way facility he should request their physician to initiate hospice consultation. Referrals: JAVIER BYERS MD [Primary Care Provider] - Follow up in 3-5 days
[2018-10-04 03:47] LABS: HEMATOCRIT 37.6 % (36.0-47.0); HEMOGLOBIN 12.6 g/dL (12.0-15.5); MEAN CORPUSCULAR HEMOGLOBIN 37.7 pg (27.0-33.4); MEAN CORPUSCULAR HGB CONC 33.6 g/dL (32.0-36.0); RED BLOOD COUNT 3.34 10^6/uL (3.72-5.28); RED CELL DISTRIBUTION WIDTH 25.7 % (11.5-14.0); WHITE BLOOD COUNT 4.9 10^3/uL (4.0-10.5)
[2018-10-04 03:49] LABS: INTERNATIONAL RATION (INR) 1.55; PROTHROMBIN TIME 19.4 SEC (11.4-15.4)
[2018-10-04 03:50] LABS: PARTIAL THROMBOPLASTIN TIME 38.5 SEC (23.5-35.8)
[2018-10-04 04:43] LABS: ANION GAP 7 (5-19); BLOOD UREA NITROGEN 38 mg/dL (7-20); CALCIUM 8.5 mg/dL (8.4-10.2); CARBON DIOXIDE 31 mmol/L (22-30); CHLORIDE 96 mmol/L (98-107); GLUCOSE 113 mg/dL (75-110); POTASSIUM 5.5 mmol/L (3.6-5.0); SODIUM 133.8 mmol/L (137-145)
[2018-10-04 04:44] LABS: ABSOLUTE LYMPHOCYTES# (MANUAL) 1.3 10^3/uL (0.5-4.7); ABSOLUTE MONOCYTES # (MANUAL) 0.3 10^3/uL (0.1-1.4); ABSOLUTE NEUTROPHILS# (MANUAL) 3.1 10^3/uL (1.7-8.2); BASOPHILS % (MANUAL) 0 % (0-2); EOSINOPHILS % (MANUAL) 1 % (0-6); LYMPHOCYTES % (MANUAL) 27 % (13-45); MONOCYTES % (MANUAL) 7 % (3-13); NUCLEATED RED BLOOD CELLS 6 /100 WBC (0); SEGMENTED NEUTROPHILS % (MAN) 64 % (42-78); TOTAL CELLS COUNTED 100
[2018-10-04 04:46] LABS: ANISOCYTOSIS 3+; OVALOCYTES 1+; POIKILOCYTOSIS 1+; POLYCHROMASIA 1+; TEAR DROP CELLS SLIGHT; TOXIC GRANULATION SLIGHT; TOXIC VACUOLATION PRESENT
[2018-10-04 04:47] LABS: MEAN CORPUSCULAR VOLUME 112 fl (80-97)
[2018-10-04 04:50] LABS: PLATELET COUNT 1225 10^3/uL (150-450)
[2018-10-04] MEDS ORDERED: NORMAL SALINE 1000 ML 1,000 ML IV ONE (04:58)
[2018-10-04 05:02] LABS: PLATELET COMMENT INCREASED
[2018-10-04] MEDS ORDERED: METOPROLOL TARTRATE 50 MG TABLET PO ONE (05:32)
[2018-10-04] MEDS ORDERED: DILTIAZEM HCL 180 MG CAPSULE.CR PO ONE (06:12)
[2018-10-04 07:16] VITALS: BP 111/64
[2018-10-04 08:36] LABS: PATH REVIEW PATHOLOGIST REVIEWED
== END 2018-10-04 07:51 ==
LOC: ER 02:42
DX: N93.9 Abnormal uterine and vaginal bleeding, unspecified (principal); D45 Polycythemia vera; I48.2 Chronic atrial fibrillation; K62.5 Hemorrhage of anus and rectum; Z79.01 Long term (current) use of anticoagulants; I10 Essential (primary) hypertension
CPT/HCPCS: 99285; 96360; 86900; 86901; 36415; 86850; 85025; 85610; 85730; 80048; A9270 ×2; J7030